=== PATIENT | male | born 1940 | race Caucasian/White ===

== ENCOUNTER → 2020-10-13 14:52 | Outpatient (CLI) | payer MEDICARE, BC, SELFPAY | PROVIDERS: PCP Family Medicine; Referring Provider Family Medicine; Visit Provider Family Medicine | DX: Z03.818 Encounter for observation for suspected exposure to other biological agents ruled out (principal) | CPT/HCPCS: U0003 ==

== ENCOUNTER → 2022-05-18 08:33 | Outpatient (CLI) | payer MEDICARE, BC, SELFPAY | PROVIDERS: PCP Family Medicine; Visit Provider Ophthalmology | DX: Z01.812 Encounter for preprocedural laboratory examination (principal); Z20.822 Contact with and (suspected) exposure to COVID-19 | CPT/HCPCS: C9803; U0003; U0005 ==

== ENCOUNTER 2022-05-21 08:41 | Day surgery (SDC) | payer MEDICARE, BC, SELFPAY ==
[2022-05-16 12:16] VITALS: BMI 25.4
[2022-05-21 09:26] VITALS: BP 141/53; PULSE 61; RESP 16; TEMP 36.2; O2SAT 97
[2022-05-21 10:00] VITALS: BP 142/74; PULSE 109; RESP 18; TEMP 36.2; O2SAT 98
[2022-05-21 10:09] VITALS: BP 142/79; PULSE 109; RESP 18; O2SAT 98
== END 2022-05-21 10:09 | disposition home or self-care (01) ==
LOC: OUTP 08:43
PROVIDERS: PCP Family Medicine; Visit Provider Ophthalmology
PROC: (CPT 66821; principal; 2022-05-21 09:30)
DX: H26.40 Unspecified secondary cataract (principal); Z48.810 Encounter for surgical aftercare following surgery on the sense organs
CPT/HCPCS: 66821

== ENCOUNTER 2024-11-21 09:52 | Observation (INO) | payer MEDICARE, BC, SELFPAY ==
[2024-11-21] VITALS (21 sets, daily range): BP systolic 133–172; BP diastolic 58–78; PULSE 61–81; RESP 10–20; TEMP 36.4–36.8; O2SAT 94–99; BMI 25.7
--- NOTE | 2024-11-21 09:55 | ECG_ITS ---
APPROVED REPORT Exam: Resting ECG HR:75 bpm ECG Measurements Heart Rate 75 AXES NE 199 P 58 QRSd 89 QRS 55 QT 337 T 58 QTc 366 Conclusion SINUS RHYTHM NORMAL ECG Electronically signed by : LIZ DE LA GARZA, 11/27/2024 07:47:07
--- NOTE | 2024-11-21 10:02 | ED_ITS ---
Discharge Plan Disposition Patient Disposition: Admitted Chief Complaint: Chest Pain Prescriptions Prescriptions: No Action ascorbic acid (vitamin C) 1,000 MG tablet 1,000 mg PO DAILY aspirin 325 MG tablet 325 mg PO DAILY simvastatin 10 MG tablet 10 mg PO DAILY amlodipine 5 MG tablet 5 mg PO BID tamsulosin 0.4 MG capsule 0.4 mg PO DAILY lisinopril 10 MG tablet 10 mg PO BID levothyroxine 112 MCG tablet 112 mcg PO DAILY sinvyfkl-hlc-WY-lycopen-lutein 1 EACH tablet 1 each PO DAILY omega-3 fatty acids 300 MG capsule 1,000 mg PO DAILY cyanocobalamin (vitamin B-12) 2,500 MCG tablet 2,500 mcg PO DAILY Clinical Impressions Clinical Impression: Acute cholecystitis Print Language Print Language: Setswana Discharge ED Provider: Chris Adair HPI General Chief Complaint: Chest Pain Stated Complaint: Chest pain Time Seen by Provider: 11/21/24 10:02 History of Present Illness HPI narrative: Please note that above description of symptoms, in this electronic medical record under categorization of recalled from ER triage doctor by RN are reflective of an initial nursing assessment, however, is not reflective of my full history and physical exam that was personally taken and clarified. Consequentially, this preceding description of symptoms, which may include the patient's categorized chief complaint in the EMR, do not reflect my personal clinical impression, and the ultimate description of history of present illness and patient stated complaints should be deferred to this section of the note. Unless stated otherwise or congruent with this section of the note, additional signs, symptoms, or incongruence should be interpreted as inaccurate with my clinical impression. Related Data Home Medications ?Medication ?Instructions ?Recorded ?Confirmed amlodipine 5 mg tablet 5 mg PO BID BP 09/07/19 05/21/22 ascorbic acid (vitamin C) 1,000 mg 1,000 mg PO DAILY Supplement 09/07/19 05/21/22 tablet aspirin 325 mg tablet 325 mg PO DAILY Blood thinner 09/07/19 05/21/22 cyanocobalamin (vitamin B-12) 2,500 mcg PO DAILY Supplement 09/07/19 05/21/22 2,500 mcg tablet levothyroxine 112 mcg tablet 112 mcg PO DAILY THYROID 09/07/19 05/21/22 lisinopril 10 mg tablet 10 mg PO BID BP 09/07/19 05/21/22 gerhszhk-uee-crhdo acid 0.4 1 each PO DAILY Supplement 09/07/19 05/21/22 mg-lycopene 300 mcg-lutein 250 mcg tablet omega-3 fatty acids 300 mg capsule 1,000 mg PO DAILY Supplement 09/07/19 05/21/22 simvastatin 10 mg tablet 10 mg PO DAILY Cholesterol 09/07/19 05/21/22 tamsulosin 0.4 mg capsule 0.4 mg PO DAILY PROSTATE 09/07/19 05/21/22 Allergies Allergy/AdvReac Type Severity Reaction Status Date / Time No Known Allergies Allergy Verified 05/21/22 09:23 [facility] Disclaimer: The information contained in this section may have been updated after the patient was seen, as this information can be updated by other users. Social History Smoking Status: Current every day smoker tobacco type: pipe second hand exposure: Yes alcohol intake: current alcohol intake frequency: a few times a week current occupational status: employed Travel in the last 8 weeks: None household members: spouse housing: house current occupation: [employer] current occupational exposures/hazards: No caffeine: Yes Have you lived/traveled outside [place] in past 30 days?: No Contact w/someone who lives/traveled outside [place] past 30 days?: No Exposure to someone with infectious disease in past 14 days?: No Do you have a fever (greater than 100.4 F or 38 C)?: No Have you tested positive for COVID-19: No Exposed to someone with COVID-19 in past 14 days?: No Do you have a sore throat?: No Do you have a cough?: No Do you have any weakness?: No Do you have any diarrhea?: No Are you experiencing any unusual bleeding?: No Do you have any muscle aches/pain?: No Do you have any abdominal pain?: No Are you experiencing loss of taste or smell?: No Other Medical History Have you received the Flu Vaccine for this season: No Have you received the Pneumonia Vaccine: Yes ROS Obtained: Yes All systems reviewed & no additional complaints except as documented Physical Exam General General appearance: alert Neck Neck exam: Present trachea midline Chest Chest inspection: Present normal inspection and symmetric chest wall rise Respiratory Respiratory exam: Present normal lung sounds bilaterally; Absent respiratory distress, wheezes, stridor, accessory muscle use or prolonged expiratory phase Cardiovascular Cardiovascular exam: Present regular rate, normal rhythm and other (Pulses equal and symmetric in upper and lower extremities) Extremities Exam Extremities exam: Absent edema Neurological Exam Neurological exam: Present alert, oriented X3 and CN II-XII intact Skin Skin exam: Present warm and dry; Absent cyanosis, diaphoresis or pallor HEART Score HEART Score HEART Score assessment performed?: Yes HEART Score: 5 Procedures Limited Ultrasound Indication:: Limited RUQ ultrasound Indication: Abdominal pain, colicky, right upper quadrant Identified structures: -Gallbladder -Gallbladder wall -Common bile duct -Liver Findings: Sonographic Villarreal sign: Present Gallstones: Present Sludge: Absent Pericholecystic fluid: Scant Maximal GB wall thickness (mm) (normal is </= 3mm): Normal Common bile duct width (mm) (normal is </= 6mm): Normal Gallbladder width (cm) (normal is < 4cm): Normal Gallbladder length (cm) (normal is < 10cm): Abnormal, nearly 11 cm Impression: Dilated gallbladder, stones, right upper quadrant tenderness with scant pericholecystic fluid Images were saved to permanent archive The study was technically adequate CPT 36156-97 This study was performed by me, and I personally interpreted all images/videos. Based on my clinical judgement, these images were adequate and did not necessitate further imaging. Critical Care Critical Care Time Critical Care Time: No Medical Decision Making Medical Records Medical records reviewed: Yes I reviewed the patient's medical records. Macario Inquiry Pt receiving controlled substance: No Macario was queried for this patient: No Vital Signs Vital Signs: 11/21/24 09:52 11/21/24 10:06 11/21/24 10:15 Temperature 97.6 F Temperature Source Oral Pulse Rate 81 66 Pulse Rate [Left Radial] 81 Respiratory Rate 20 15 Blood Pressure 145/71 H Blood Pressure [Right Arm] 172/73 H Blood Pressure Mean [Right Arm] 106 02 Sat by Pulse Oximetry 98 97 Oxygen Delivery Method Room Air Room Air 11/21/24 10:30 11/21/24 10:45 11/21/24 10:46 Temperature Temperature Source Pulse Rate 72 Pulse Rate [Left Radial] Respiratory Rate 17 20 17 Blood Pressure 143/63 H 150/71 H Blood Pressure [Right Arm] Blood Pressure Mean [Right Arm] 02 Sat by Pulse Oximetry 96 Oxygen Delivery Method Room Air 11/21/24 11:00 11/21/24 11:15 11/21/24 11:30 Temperature Temperature Source Pulse Rate 67 66 61 Pulse Rate [Left Radial] Respiratory Rate 10 L 16 18 Blood Pressure 149/78 H 147/67 H 148/70 H Blood Pressure [Right Arm] Blood Pressure Mean [Right Arm] 02 Sat by Pulse Oximetry 99 97 97 Oxygen Delivery Method Room Air Room Air Room Air 11/21/24 11:45 11/21/24 12:15 11/21/24 12:30 Temperature Temperature Source Pulse Rate 71 70 71 Pulse Rate [Left Radial] Respiratory Rate 14 19 17 Blood Pressure 150/71 H 139/70 141/69 H Blood Pressure [Right Arm] Blood Pressure Mean [Right Arm] 02 Sat by Pulse Oximetry 98 95 94 L Oxygen Delivery Method Room Air 11/21/24 12:45 11/21/24 13:00 Temperature Temperature Source Pulse Rate 74 70 Pulse Rate [Left Radial] Respiratory Rate 19 18 Blood Pressure 141/67 H 143/66 H Blood Pressure [Right Arm] Blood Pressure Mean [Right Arm] 02 Sat by Pulse Oximetry 96 94 L Oxygen Delivery Method Room Air Lab Data Labs: Lab Results 11/21/24 10:05: WBC 11.9 H, RBC 4.10 L, Hgb 13.1 L, Hct 38.8 L, MCV 94.6 H, MCH 32.0 H, MCHC 33.8, RDW 13.5, Plt Count 294, MPV 9.1, Neut % (Auto) 72.1, Lymph % (Auto) 16.6, [place] % (Auto) 9.4 H, Eos % (Auto) 0.7, Baso % (Auto) 0.7, Neut # (Auto) 8.6 H, Lymph # (Auto) 2.0, [place] # (Auto) 1.1 H, Eos # (Auto) 0.1, Baso # (Auto) 0.1, PT 10.2, INR 0.92, APTT 27.2, Sodium 130 L, Potassium 5.2 H, C hloride 97 L, Carbon Dioxide 25, Anion Gap 13.2, BUN 19, Creatinine 1.10, Estimated Creat Clear 61, Estimated GFR 64, Est GFR ( Amer) 78, Glucose 99, Calcium 9.3, Total Bilirubin 0.9, AST 59, ALT 33, Alkaline Phosphatase 68, Troponin I < 0.01, NT-Pro-B Natriuret Pep 141, Total Protein 7.4, Albumin 4.2, Globulin 3.2, Albumin/Globulin Ratio 1.3, Lipase 197 11/21/24 10:05 11/21/24 10:05 Response Orders (Tests/Meds): ED MEDICATIONS Discontinued Medications Generic Name Dose Route Start Last Admin Trade Name Freq PRN Reason Stop Dose Admin Belladonna Alkaloids 60 ml 11/21/24 10:44 11/21/24 10:56 Belladonna Alkaloids 60 Ml Ml PO 11/21/24 10:45 60 ml ONCE ONE Administration Lactated Ringer's 1,000 mls @ 999 mls/hr 11/21/24 12:04 11/21/24 12:07 Lactated Ringer's 1000 Ml Bag IV 11/21/24 13:04 999 mls/hr .Q1H1M ONE Administration Iopamidol 75 ml 11/21/24 12:01 11/21/24 12:02 Iopamidol-370 (76%);100ml Bottle IV 11/21/24 12:02 75 ml ONCE ONE Administration Ketorolac Tromethamine 15 mg 11/21/24 12:04 11/21/24 12:07 Ketorolac 30mg/Ml Vial IV 11/21/24 12:05 15 mg ONCE ONE Administration Ondansetron HCl 4 mg 11/21/24 10:54 11/21/24 10:56 Ondansetron 4mg/2ml Vial IV 11/21/24 10:55 4 mg ONCE ONE Administration Sodium Chloride 10 ml 11/21/24 12:01 11/21/24 12:02 Sodium Chloride 0.9% 10ml Syr (Rad Only) IV 11/21/24 12:02 10 ml ONCE ONE Administration ORDERS Category Date Time Status CT abdomen pelvis w con Stat Cat Scan 11/21/24 11:50 Completed POCUS Point of Care (ER Only) Stat Exams 11/21/24 10:08 Completed XR chest portable Stat Exams 11/21/24 10:08 Completed Complete Blood Count Auto Diff Stat Lab 11/21/24 10:05 Completed Comprehensive Metabolic Panel Stat Lab 11/21/24 10:05 Completed Lipase Stat Lab 11/21/24 10:05 Completed NT Pro Brain Natriuretic Pep. 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 Patient states that it started this morning around 4 AM. Took 2 aspirin. Also took 2 Pepcid, neither of these things work. Pain is epigastric, does not radiate, mild to moderate in intensity. Has never had abdominal surgeries and no cardiac history otherwise. No vomiting or diarrhea, no constipation, still passing gas, last bowel movement nose normal for him and yesterday. History was obtained via conversation with patient. On arrival, patient hemodynamically stable, alert, oriented x4, appropriate, GCS 15, moving all extremities spontaneously, pupils equal and reactive to light. Full physical exam performed and significant for well-appearing male no acute distress. He does have epigastric and right upper quadrant tenderness. No evidence of rebound, rigidity, guarding. No overlying skin changes. Cardiac exam with no murmurs gallops or rubs. Lungs are clear. He does have 2+ lower extremity pitting edema with normal pulses. Differential includes pancreatitis, cholecystitis, ACS, MS, pneumonia, gastritis, peptic ulcer disease, among others. Patient was given GI cocktail for symptomatic management and correction of underlying abnormalities. Patient placed on continuous cardiac monitoring and continuous pulse ox with initial blood pressure 172/73, heart rate 81, saturation 98% on room air. Independent interpretation of EKG shows sinus rhythm 75 bpm with ME interval 199, QRS 89, QTc 366. No ST or T wave changes consistent with acute ischemia. Normal axis. Workup independently interpreted and significant for leukocytosis 12,000 with neutrophilia and monocyte elevation. Coags negative. Patient mildly hyponatremic 130, potassium elevated at 5.2. Troponin negative, BNP negative. Lipase negative. Bedside hgjam-gw-glcd ultrasound was performed. Patient has dilated gallbladder, borderline elevated measurements including gallbladder wall 2.7, gallbladder width 3.7 cm, gallbladder length over 10 cm. Numerous gallstones. Common bile duct within normal limits. On independent interpretation of chest x-ray, no acute intrathoracic abnormalities. On independent interpretation of CT imaging, no acute intra-abdominal abnormalities. See radiology read for full review of final results. On reevaluation, patient states that GI cocktail did almost nothing for him. Toradol was given. General surgery was contacted and case was discussed at length. Because patient has stones, upper limit of normal on all measurements on ultrasound, positive Villarreal sign with scant pericholecystic fluid appropriate for inpatient admission.. Patient was administered 4.5 g Zosyn. On room, states that the Toradol nearly completely took care of his pain. Makes this even more likely to be inflammatory pain given negative workup otherwise.Given patient presentation, workup, history, this most likely represents symptomatic cholelithiasis versus early cholecystitis. Because patient high risk for clinical decompensation, deemed appropriate for inpatient admission. Results were relayed to patient who voiced understanding and patient was agreeable to inpatient admission and management. Patient was admitted to the hospital for further definitive management. Financial Sales Professional disclaimer Much of this encounter note is an electronic sales agent casualty insurance spoken language to printed text. Electronic sales agent casualty insurance of the spoken language may permit errors. Although I have reviewed the note, some errors may still exist.
--- NOTE | 2024-11-21 10:08 | XR_ITS ---
PROCEDURE INFORMATION: Exam: XR Chest Exam date and time: 11/21/2024 10:15 AM Age: 84 years old Clinical indication: Other: Epigastric pain TECHNIQUE: Imaging protocol: Radiologic exam of the chest. Views: 1 view. COMPARISON: No relevant prior studies available. FINDINGS: Lungs: Lungs are well aerated without a focal area of consolidation. Pleural spaces: Unremarkable. No pleural effusion. No pneumothorax. Heart/Mediastinum: The cardiac silhouette appears enlarged, some of which is magnification related to the AP projection. Bones/joints: Unremarkable. IMPRESSION: Lungs are well aerated without a focal area of consolidation.
[2024-11-21 10:17] LABS: Basophils # 0.1 K/mm3 (0-0.2); Basophils % 0.7 % (0.1-2.0); Eosinophils # 0.1 K/mm3 (0.0-0.4); Eosinophils % 0.7 % (0.1-12.0); Hematocrit 38.8 % (42.0-52.0); Hemoglobin 13.1 g/dL (14.1-18.0); Lymphocytes % 16.6 % (10-50); Mean Corpuscular HGB Conc 33.8 g/dL (31.8-35.4); Mean Corpuscular Volume 94.6 fl (80-94); Mean Platelet Volume 9.1 fl (7.4-10.4); Monocytes # 1.1 K/mm3 (0.1-1.0); Monocytes % 9.4 % (1.7-9.3); Neutrophils # 8.6 K/mm3 (1.8-7.8); Neutrophils % 72.1 % (37.0-80.0); Platelet Count 294 K/mm3 (142-424); Red Cell Distribution Width 13.5 % (11.5-17.5); White Blood Count 11.9 K/mm3 (4.8-10.8)
[2024-11-21 10:22] LABS: Albumin Level 4.2 g/dl (3.5-5.0); Chloride 97 mmol/L (98-107); Potassium 5.2 mmoL/L (3.5-5.1); Sodium 130 mmol/L (136-145)
[2024-11-21 10:25] LABS: Alanine Aminotransferase 33 U/L (12-78); Albumin/Globulin Ratio 1.3 (1.1-1.8); Alkaline Phosphatase 68 U/L (38-126); Anion Gap 13.2 mEq/L (5-15); Aspartate Amino Transferase 59 U/L (17-59); Bilirubin,Total 0.9 mg/dl (0.2-1.3); Blood Urea Nitrogen 19 mg/dl (9-20); Calcium 9.3 mg/dl (8.4-10.2); Carbon Dioxide 25 mmol/L (22.0-30.0); Creatinine Clearance Estimated 61 mL/min (50-200); Estimated Glomerular Filt Rate 64 ml/min (>60); GFR (African American) 78 ML/MIN (>60); Globulin 3.2 g/dL (1.3-3.2); Glucose 99 mg/dl (74-100); Lipase 197 U/L (23-300); Total Protein,Serum 7.4 g/dl (6.3-8.2)
[2024-11-21 10:34] LABS: Activated Partial Thrombo Time 27.2 seconds (22.5-28.5); INR 0.92 (0.9-1.1); NT Pro Brain Natriuretic Pep. 141 pg/mL (0-450); Prothrombin Time 10.2 seconds (9.2-12.1)
[2024-11-21 10:37] LABS: Troponin I < 0.01 ng/ml (0.00-0.034)
[2024-11-21] MEDS: BELLADONNA ALKALOIDS 60 ML ML PO (10:56)
[2024-11-21] MEDS: ONDANSETRON 4MG/2ML VIAL 4 MG IV (10:56)
--- NOTE | 2024-11-21 11:45 | PC.NURSE ---
PT PROVIDED URINAL
--- NOTE | 2024-11-21 11:50 | CT_ITS ---
PROCEDURE INFORMATION: Exam: CT Abdomen And Pelvis With Contrast Exam date and time: 11/21/2024 12:01 PM Age: 84 years old Clinical indication: Abdominal pain; Other: Ruq; Additional info: Ruq pain. Equivocal US TECHNIQUE: Imaging protocol: Computed tomography of the abdomen and pelvis with contrast. Radiation optimization: All CT scans at this facility use at least one of these dose optimization techniques: automated exposure control; mA and/or kV adjustment per patient size (includes targeted exams where dose is matched to clinical indication); or iterative reconstruction. Contrast material: ISOVUE; Contrast volume: 75 ml; Contrast route: IV; COMPARISON: CR XR CHEST PORTABLE 11/21/2024 10:15 AM FINDINGS: Lungs: visualized portions of the lung bases normal. Liver: Normal. No mass. Gallbladder and biliary ducts: Numerous gallstones. Prominence of the common bile duct. Question mild intrahepatic biliary dilatation. No visualized filling defect/no evidence of choledocholithiasis. Correlate with LFTs. Pancreas: Normal. No ductal dilation. Spleen: Splenic granulomas are present. Adrenal glands: Normal. No mass. Kidneys and ureters: Renal cysts bilaterally largest on the right of approximately 6 cm in on the left of approximately 3 cm. Stomach and bowel: Large amount of stool throughout the large bowel. The terminal ileum and cecum appear grossly normal. Appendix: Appendix normal. Intraperitoneal space: No acute intra-abdominal process. No inflammatory process. No obstruction. No free fluid within the pelvis or within the dependent portions of the peritoneum. Vasculature: Calcification of the abdominal aorta. Flow within the superior mesenteric artery, celiac trunk and inferior mesenteric arteries. Lymph nodes: Unremarkable. No enlarged lymph nodes. Urinary bladder: Distended bladder. Reproductive: Prostatic enlargement. Correlate regarding hyperplasia/hypertrophy versus neoplasia. Bones/joints: Mild degenerative disc disease. Soft tissues: Periumbilical ventral hernia. Small. IMPRESSION: 1. No acute intra-abdominal process. No inflammatory process. No obstruction. 2. No free fluid within the pelvis or within the dependent portions of the peritoneum. 3. Numerous gallstones. 4. Prostatic enlargement. Correlate regarding hyperplasia/hypertrophy versus neoplasia. 5. Prominence of the common bile duct. Question mild intrahepatic biliary dilatation. No visualized filling defect/no evidence of choledocholithiasis. Correlate with LFTs. 6. Large amount of stool throughout the large bowel. 7. Appendix normal. COMMENTS: Consistent with the [place] [employer]'s Incidental Findings Committee white paper (J Am Nasim Radiol 2018): Any incidental renal lesion less than 1 cm or classified as too small to characterize, or any incidental cystic renal lesion characterized as simple-appearing, is likely benign. No follow-up imaging is recommended for these lesions per consensus recommendations based on imaging criteria.
--- NOTE | 2024-11-21 11:55 | PC.NURSE ---
PT TO CT
[2024-11-21] MEDS: IOPAMIDOL-370 (76%);100ML BOTTLE 75 ML IV (12:02)
[2024-11-21] MEDS: SODIUM CHLORIDE 0.9% 10ML SYR (RAD ONLY) 10 ML IV (12:02)
--- NOTE | 2024-11-21 12:06 | PC.NURSE ---
PT RETURNED FROM CT
[2024-11-21] MEDS: LACTATED RINGERS 1000ML 1,000 ML 999 ML IV (12:07)
[2024-11-21] MEDS: KETOROLAC 30MG/ML VIAL 15 MG IV (12:07)
--- NOTE | 2024-11-21 13:00 | PC.NURSE ---
DR DE LA GARZA AT BEDSIDE TO UPDATE PT AND FAMILY
--- NOTE | 2024-11-21 13:13 | PC.NURSE ---
DR ED LA GARZA SPEAKING WITH DR PORTER
[2024-11-21] MEDS: PIPERACILLIN/TAZO 4.5 GM in 0.9 % SODIUM CHLORIDE 100 ML IV (13:30)
--- NOTE | 2024-11-21 13:31 | PC.NURSE ---
FISH CULTURIST NOTIFIED OF ADMISSION
--- NOTE | 2024-11-21 13:42 | EXP.HP ---
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 Presents to the ER with complaint of epigastric pain. States it started early this morning, he took 2 aspirin and 2 Pepcid with no improvement in his discomfort. Called his son who encouraged him to go to the ER for evaluation. States the pain does not radiate. Denies nausea or vomiting. Mild to moderate intensity. Has never had pain like this before he states. No vomiting or diarrhea. Denies constipation, had a bowel movement last night. Alert and oriented in the ER. Hemodynamically stable. On workup in the ER, found to have gallstones. Does have moderate stool burden in his colon on CT abdomen. Liver enzymes normal. Given concern for choledocholithiasis, surgery was contacted. Recommended admission for further evaluation and possible surgery. Medicine consulted for admission. On evaluation, patient denies belkis chest pain. With right upper quadrant palpation, this reproduces his epigastric pain. States that the pain was present when he woke up. Not made worse by eating sausage for breakfast. States he is more or less pain-free now unless his belly is pressed on. [facility] Disclaimer: The information contained in this section may have been updated after the patient was seen, as this information can be updated by other users. Medical History (Updated 11/21/24 @ 18:56 by Norman Flores MD) Cholecystitis CVA (cerebral vascular accident) Hyperlipidemia Hypertension Family History Other Hypertension Stroke Social History Smoking Status: Current every day smoker tobacco type: pipe second hand exposure: Yes alcohol intake: current alcohol intake frequency: a few times a week current occupational status: employed Travel in the last 8 weeks: None household members: spouse housing: house current occupation: [employer] current occupational exposures/hazards: No caffeine: Yes Have you lived/traveled outside US in past 30 days?: No Contact w/someone who lives/traveled outside US past 30 days?: No Exposure to someone with infectious disease in past 14 days?: No Do you have a fever (greater than 100.4 F or 38 C)?: No Have you tested positive for COVID-19: No Exposed to someone with COVID-19 in past 14 days?: No Do you have a sore throat?: No Do you have a cough?: No Do you have any weakness?: No Do you have any diarrhea?: No Are you experiencing any unusual bleeding?: No Do you have any muscle aches/pain?: No Do you have any abdominal pain?: No Are you experiencing loss of taste or smell?: No Other Medical History Have you received the Flu Vaccine for this season: No Have you received the Pneumonia Vaccine: Yes Review of Systems Review of Systems Review of systems (narrative): 14 point review of systems performed, pertinent positives and negatives as per [facility] Meds Home Medications and Allergies Home Medications ?Medication ?Instructions ?Recorded ?Confirmed ?Type amlodipine 5 mg tablet 5 mg PO BID BP 09/07/19 11/21/24 History ascorbic acid (vitamin C) 1,000 mg 1,000 mg PO DAILY Supplement 09/07/19 11/21/24 History tablet aspirin 325 mg tablet 325 mg PO DAILY Blood thinner 09/07/19 11/21/24 History cyanocobalamin (vitamin B-12) 2,500 mcg PO DAILY Supplement 09/07/19 11/21/24 History 2,500 mcg tablet levothyroxine 112 mcg tablet 112 mcg PO DAILY THYROID 09/07/19 11/21/24 History lisinopril 10 mg tablet 10 mg PO BID BP 09/07/19 11/21/24 History szprwmby-bfq-deiyx acid 0.4 1 each PO DAILY Supplement 09/07/19 11/21/24 History mg-lycopene 300 mcg-lutein 250 mcg tablet omega-3 fatty acids 300 mg capsule 1,000 mg PO DAILY Supplement 09/07/19 11/21/24 History simvastatin 10 mg tablet 10 mg PO DAILY Cholesterol 09/07/19 11/21/24 History alfuzosin 10 mg tablet,extended 10 mg PO BID 11/21/24 11/21/24 History release 24 hr New Prescriptions to Start Prescriptions: Allergies Allergy/AdvReac Type Severity Reaction Status Date / Time No Known Allergies Allergy Verified 05/21/22 09:23 Exam Data for Last 24 hours Vital signs and Labs for Last 24 Hours: Temp Pulse Resp BP Pulse Ox O2 Del Method 97.6 F 70 18 143/66 H 94 L Room Air 11/21/24 09:52 11/21/24 13:00 11/21/24 13:00 11/21/24 13:00 11/21/24 13:00 11/21/24 13:00 Laboratory Results - last 24 hr 11/21/24 10:05: WBC 11.9 H, RBC 4.10 L, Hgb 13.1 L, Hct 38.8 L, MCV 94.6 H, MCH 32.0 H, MCHC 33.8, RDW 13.5, Plt Count 294, MPV 9.1, Neut % (Auto) 72.1, Lymph % (Auto) 16.6, [place] % (Auto) 9.4 H, Eos % (Auto) 0.7, Baso % (Auto) 0.7, Neut # (Auto) 8.6 H, Lymph # (Auto) 2.0, [place] # (Auto) 1.1 H, Eos # (Auto) 0.1, Baso # (Auto) 0.1, PT 10.2, INR 0.92, APTT 27.2, Sodium 130 L, Potassium 5.2 H, Chloride 97 L, Carbon Dioxide 25, Anion Gap 13.2, BUN 19, Creatinine 1.10, Estimated Creat Clear 61, Estimated GFR 64, Est GFR ( Amer) 78, Glucose 99, Calcium 9.3, Total Bilirubin 0.9, AST 59, ALT 33, Alkaline Phosphatase 68, Troponin I < 0.01, NT-Pro-B Natriuret Pep 141, Total Protein 7.4, Albumin 4.2, Globulin 3.2, Albumin/Globulin Ratio 1.3, Lipase 197 I & O for Last 24 hours: Intake & Output 11/18/24 11/19/24 11/20/24 11/21/24 23:59 23:59 23:59 23:59 Weight 83.461 kg Constitutional Constitutional: no acute distress, average body habitus and cooperative *Routine HEENT Exam Head: Present normocephalic Eye: Present EOMI and PERRL ENT: Present mucous membranes moist *Routine Neck Exam Neck: Present supple; Absent lymphadenopathy *Routine Respiratory Exam Respiratory: Present CTA bilaterally; Absent respiratory distress, rhonchi, stridor, wheezes or crackles *Routine Cardiovascular Exam Cardiovascular: Present RRR *Routine Abdominal Exam Abdominal: Present soft, normoactive bowel sounds and tenderness (Palpation of right upper quadrant produces epigastric discomfort. No rebound or guarding. No peritoneal signs) *Routine Rectal Exam Rectal:: deferred *Routine Genitalia Exam Genitalia:: deferred *Routine Extremities Exam Extremities: Absent cyanosis, clubbing or edema *Routine Skin Exam Skin: Present warm; Absent rash *Routine Neurological Exam Neurological: Present alert, oriented X3 and moving all extremities; Absent altered mental status Assessment and Plan *Assessment and plan (1) Acute cholecystitis: Status: Acute Category: Medical Code(s): K81.0 - Acute cholecystitis (2) Gallstones: Status: Acute Category: Medical Code(s): K80.20 - Calculus of gallbladder without cholecystitis without obstruction (3) Hypertension: Status: Chronic Category: Medical Code(s): I10 - Essential (primary) hypertension (4) Hyperlipidemia: Status: Chronic Category: Medical Code(s): E78.5 - Hyperlipidemia, unspecified (5) CVA (cerebral vascular accident): Status: Chronic Category: Medical Code(s): I63.9 - Cerebral infarction, unspecified Plan 84-year-old male who presents with epigastric pain. Differential includes GERD, constipation, gallbladder disease. Imaging concerning for gallstones. Given presence of right upper quadrant pain/discomfort reproducing his epigastric pain when pressed on abdomen, had discussion with the ER about admission. Request admission for surgical eval and further management. I agreed to admit for further treatment. Surgery evaluated. Patient appears hemodynamically stable. Will monitor overnight for recurrence of pain. Workup in the morning. Possible surgery tomorrow. Problems addressed as follows: Choledocholithiasis Acute cholecystitis -CT per my review shows numerous calcified stones in the neck of the gallbladder. Mild positive Villarreal sign on exam - White count 11.9. Liver enzymes normal with bilirubin 0.9, AST 59, ALT 33, alk phos 68. Repeat CBC, CMP, magnesium ordered for the morning. - Patient does have some mild hyponatremia at 130 with potassium 5.2. Kidney function normal with BUN 19, creatinine 1.1. -Case discussed with surgery. Recommend n.p.o. at midnight and right upper quadrant ultrasound in the morning. Will consider surgery tomorrow versus in the near future as an outpatient. - patient is active, has no kidney disease, no diabetes, no chest pain. Would recommend cardiology eval just given patient's age and unknown cardiac history. Will obtain echo in the morning. Appears to be average risk for intermediate risk procedure of cholecystectomy. -Will hold on further antibiotics at this time. Received a dose of Zosyn in the ER. Hypothyroid: Continue levothyroxine 112 mcg daily Hypertension: Continue home alfuzosin 10 mg twice daily, amlodipine 5 mg twice daily, lisinopril 10 mg twice daily Will hold statin for lipids at this time. Patient appears to be constipated on exam and CT of abdomen per my review. Will initiate aggressive bowel regimen with MiraLAX daily, docusate senna 1 capsule twice daily. GERD: Continue pantoprazole 40 mg nightly Full code Holding anticoagulation in anticipation of surgery N.p.o. at midnight
--- NOTE | 2024-11-21 14:18 | P.CONS_ITS ---
History of Present Illness *Admission Date: 11/21/24 *Reason for visit:: Gallstones *History of present illness: Patient is an 84-year-old male from [place] with history of hypertension, hyperlipidemia, prior CVA with no residual deficits, known history of gallstones. He had acute onset of moderately intense epigastric pain early this morning on 11/21/2024 approximately 4 AM. He had taken 2 aspirin and 2 Pepcid without relief. He presented to the emergency department. On examination he was found to have tenderness right upper quadrant and epigastrium with Villarreal sign. He did undergo bedside [id number]-[id number]-lnck ultrasound which revealed borderline gallbladder wall thickening and distention with multiple gallstones and normal common bile duct. CT scan was performed which revealed numerous gallstones with prominence of the common bile duct and questionable mild intrahepatic biliary ductal dilatation but no definite evidence of choledocholithiasis. He had a large amount of stool throughout the colon. Laboratory assessment revealed white blood cell count 11,900. Renal function normal. LFTs and pancreatic enzymes normal. Given the degree of his tenderness with mild leukocytosis it was felt that patient warranted inpatient admission. After admission patient has had some improvement in his symptoms. [facility] Disclaimer: The information contained in this section may have been updated after the patient was seen, as this information can be updated by other users. Social History Smoking Status: Current every day smoker tobacco type: pipe second hand exposure: Yes alcohol intake: current alcohol intake frequency: a few times a week current occupational status: employed Travel in the last 8 weeks: None household members: spouse housing: house current occupation: paper handler current occupational exposures/hazards: No caffeine: Yes Have you lived/traveled outside US in past 30 days?: No Contact w/someone who lives/traveled outside US past 30 days?: No Exposure to someone with infectious disease in past 14 days?: No Do you have a fever (greater than 100.4 F or 38 C)?: No Have you tested positive for COVID-19: No Exposed to someone with COVID-19 in past 14 days?: No Do you have a sore throat?: No Do you have a cough?: No Do you have any weakness?: No Do you have any diarrhea?: No Are you experiencing any unusual bleeding?: No Do you have any muscle aches/pain?: No Do you have any abdominal pain?: No Are you experiencing loss of taste or smell?: No Meds Home Medications and Allergies Home Medications ?Medication ?Instructions ?Recorded ?Confirmed ?Type amlodipine 5 mg tablet 5 mg PO BID BP 09/07/19 05/21/22 History ascorbic acid (vitamin C) 1,000 mg 1,000 mg PO DAILY Supplement 09/07/19 05/21/22 History tablet aspirin 325 mg tablet 325 mg PO DAILY Blood thinner 09/07/19 05/21/22 History cyanocobalamin (vitamin B-12) 2,500 mcg PO DAILY Supplement 09/07/19 05/21/22 History 2,500 mcg tablet levothyroxine 112 mcg tablet 112 mcg PO DAILY THYROID 09/07/19 05/21/22 History lisinopril 10 mg tablet 10 mg PO BID BP 09/07/19 05/21/22 History ranykknc-ijw-xaysd acid 0.4 1 each PO DAILY Supplement 09/07/19 05/21/22 History mg-lycopene 300 mcg-lutein 250 mcg tablet omega-3 fatty acids 300 mg capsule 1,000 mg PO DAILY Supplement 09/07/19 05/21/22 History simvastatin 10 mg tablet 10 mg PO DAILY Cholesterol 09/07/19 05/21/22 History tamsulosin 0.4 mg capsule 0.4 mg PO DAILY PROSTATE 09/07/19 05/21/22 History New Prescriptions to Start Prescriptions: Allergies Allergy/AdvReac Type Severity Reaction Status Date / Time No Known Allergies Allergy Verified 05/21/22 09:23 Exam (Inpt) Vital signs and Labs for Last 24 Hours: Temp Pulse Resp BP Pulse Ox O2 Del Method 98.2 F 68 17 133/58 L 95 Room Air 11/21/24 13:43 11/21/24 13:45 11/21/24 13:45 11/21/24 13:45 11/21/24 13:45 11/21/24 14:13 Laboratory Results - last 24 hr 11/21/24 10:05: WBC 11.9 H, RBC 4.10 L, Hgb 13.1 L, Hct 38.8 L, MCV 94.6 H, MCH 32.0 H, MCHC 33.8, RDW 13.5, Plt Count 294, MPV 9.1, Neut % (Auto) 72.1, Lymph % (Auto) 16.6, [place] % (Auto) 9.4 H, Eos % (Auto) 0.7, Baso % (Auto) 0.7, Neut # (Auto) 8.6 H, Lymph # (Auto) 2.0, [place] # (Auto) 1.1 H, Eos # (Auto) 0.1, Baso # (Auto) 0.1, PT 10.2, INR 0.92, APTT 27.2, Sodium 130 L, Potassium 5.2 H, C hloride 97 L, Carbon Dioxide 25, Anion Gap 13.2, BUN 19, Creatinine 1.10, Estimated Creat Clear 61, Estimated GFR 64, Est GFR ( Amer) 78, Glucose 99, Calcium 9.3, Total Bilirubin 0.9, AST 59, ALT 33, Alkaline Phosphatase 68, Troponin I < 0.01, NT-Pro-B Natriuret Pep 141, Total Protein 7.4, Albumin 4.2, Globulin 3.2, Albumin/Globulin Ratio 1.3, Lipase 197 I & O for Labs for Last 24 Hours: Intake & Output 11/19/24 11/20/24 11/21/24 11/22/24 11:59 11:59 11:59 11:59 Weight 184 lb Constitutional: no acute distress Respiratory: Present CTA bilaterally; Absent accessory muscle use Cardiac: Present Reg Rate and Rhythm GI: Present soft Comments:: Mild tenderness in the epigastrium and right upper quadrant. Results Labs 11/21/24 10:05 11/21/24 10:05 Labs: Laboratory Results - last 24 hr 11/21/24 10:05: WBC 11.9 H, RBC 4.10 L, Hgb 13.1 L, Hct 38.8 L, MCV 94.6 H, MCH 32.0 H, MCHC 33.8, RDW 13.5, Plt Count 294, MPV 9.1, Neut % (Auto) 72.1, Lymph % (Auto) 16.6, [place] % (Auto) 9.4 H, Eos % (Auto) 0.7, Baso % (Auto) 0.7, Neut # (Auto) 8.6 H, Lymph # (Auto) 2.0, [place] # (Auto) 1.1 H, Eos # (Auto) 0.1, Baso # (Auto) 0.1, PT 10.2, INR 0.92, APTT 27.2, Sodium 130 L, Potassium 5.2 H, C hloride 97 L, Carbon Dioxide 25, Anion Gap 13.2, BUN 19, Creatinine 1.10, Estimated Creat Clear 61, Estimated GFR 64, Est GFR ( Amer) 78, Glucose 99, Calcium 9.3, Total Bilirubin 0.9, AST 59, ALT 33, Alkaline Phosphatase 68, Troponin I < 0.01, NT-Pro-B Natriuret Pep 141, Total Protein 7.4, Albumin 4.2, Globulin 3.2, Albumin/Globulin Ratio 1.3, Lipase 197 Assessment and Plan *Assessment and plan (1) Acute cholecystitis: Status: Acute Category: Medical Code(s): K81.0 - Acute cholecystitis Plan I had a thorough discussion with the patient and family. He at least had significant biliary colic with findings consistent with clinical acute cholecystitis upon presentation. Symptoms have subsequently improved. However, at this time I would plan for inpatient management with IV antibiotics. Make arrangements for planned ultrasound and echocardiogram and possible cardiac risk assessment tomorrow. Pending additional testing and patient's clinical scenario either consider proceeding with cholecystectomy or early outpatient cholecystectomy.
[2024-11-21] MEDS: POLYETHYLENE GLYCOL 3350 17 GM PACKET PO (15:00)
[2024-11-21] MEDS: LISINOPRIL 10MG TABLET 10 MG PO (21:35)
[2024-11-21] MEDS: AMLODIPINE 5MG TABLET 5 MG PO (21:35)
[2024-11-21] MEDS: PANTOPRAZOLE 40MG TABLET 40 MG PO (21:35)
[2024-11-21] MEDS: SENNOSIDES 8.6MG/DOCUSATE 50MG TABLET 1 TAB PO (21:38)
[2024-11-22] VITALS (18 sets, daily range): BP systolic 124–150; BP diastolic 54–81; PULSE 66–96; RESP 16–18; TEMP 36.2–43; O2SAT 90–98; BMI 25.7
[2024-11-22] MEDS: KETOROLAC 30MG/ML VIAL 30 MG IV (02:52)
--- NOTE | 2024-11-22 05:07 | PC.NURSE ---
Pt. was admitted for cholecystitis. Pt. is alert and orientated x 4. Pt. on room air. Pt. states he was having some epigastric and RUQ pain but the pain was gone and he felt. fine. around 0300 Pt. c/o heart burn rated 4/10. Pt. medicated with Toradol and the pain resolved. Pt. is up, ambulatory and independent. Pt. was NPO after midnight for possible OR today. VSS, Personal items and call mo in reach.
--- NOTE | 2024-11-22 06:00 | CA_ITS ---
APPROVED REPORT EXAM: Comprehensive 2D, Doppler, and color-flow Echocardiogram Outsole Rounder: Nelsy Thao RDCS Ht: 5 ft 11 in Wt: 184lbs BSA: 2.04 BP: 143/66 mmHg Indications: CHF,CHOLECYSTITIS,HTN,HLP M-Mode Dimensions RVDd 2.37 cm (0.9-2.6) LA Diam 3.47 cm (1.9-4.0) LVDd 5.51 cm (3.5-5.7) LVDs 3.70 cm (3.5-5.7) IVSd 0.80 cm (0.6-1.1) PWd 0.72 cm (0.6-1.1) EF (Teich) 60.70% FS 32.80% EDV (Teich) 148.00 mL ESV (Teich) 58.10 mL LV Diastology E Decel Time 207 (160-240 msec) E/A Ratio 0.7 Mitral Valve MV E Max Meir. 65.0 (40-130 cm/s) MV A Velocity 88.0 (40-130 cm/s) E/A Ratio 0.74 MV PHT 61.0 ms Left Ventricle The left ventricle is normal size. There is increased LV wall thickness. The left ventricular systolic function is normal. The left ventricular ejection fraction is within the normal range. There is normal LV segmental wall motion. Transmitral Doppler flow pattern suggests impaired LV relaxation. LVEF is 55%. Right Ventricle The right ventricle is normal size. The right ventricular systolic function is normal. Atria The left atrium size is normal. The right atrium size is normal. There is no Doppler evidence of interatrial shunt. Aortic Valve Aortic valve is mildly thickened. There is no aortic valvular stenosis. Trace aortic regurgitation. Mitral Valve The mitral valve leaflets are mildly thickened. Trace mitral regurgitation. No evidence of mitral valve stenosis. Tricuspid Valve The tricuspid valve leaflets are thin and pliable. Trace tricuspid regurgitation. There is insufficient TR jet to estimate RVSP. Pulmonic Valve The pulmonary valve is normal in structure. Trace pulmonic regurgitation. Great Vessels The aortic root is normal in size. The ascending aorta is not well-visualized. IVC is normal in size and collapses >50% with inspiration. Pericardium There is no pericardial effusion. Other Information Study Quality: Adequate Conclusion Normal biventricular systolic function. No significant valvular stenosis or regurgitation. Electronically signed by : Leticia Arriaga MD 11/22/2024 10:03:49
--- NOTE | 2024-11-22 06:52 | EXP.SURG.PN ---
Subjective Narrative: Patient without complaints. Has some dyspepsia or heartburn type symptoms. Exam Data for Last 24 hours Vital signs and Labs for Last 24 Hours: Temp Pulse Resp BP Pulse Ox O2 Del Method 97.9 F 74 18 136/69 95 Room Air 11/22/24 04:00 11/22/24 04:00 11/22/24 04:00 11/22/24 04:00 11/22/24 04:00 11/22/24 05:00 Laboratory Results - last 24 hr 11/21/24 10:05: WBC 11.9 H, RBC 4.10 L, Hgb 13.1 L, Hct 38.8 L, MCV 94.6 H, MCH 32.0 H, MCHC 33.8, RDW 13.5, Plt Count 294, MPV 9.1, Neut % (Auto) 72.1, Lymph % (Auto) 16.6, [place] % (Auto) 9.4 H, Eos % (Auto) 0.7, Baso % (Auto) 0.7, Neut # (Auto) 8.6 H, Lymph # (Auto) 2.0, [place] # (Auto) 1.1 H, Eos # (Auto) 0.1, Baso # (Auto) 0.1, PT 10.2, INR 0.92, APTT 27.2, Sodium 130 L, Potassium 5.2 H, Chloride 97 L, Carbon Dioxide 25, Anion Gap 13.2, BUN 19, Creatinine 1.10, Estimated Creat Clear 61, Estimated GFR 64, Est GFR ( Amer) 78, Glucose 99, Calcium 9.3, Total Bilirubin 0.9, AST 59, ALT 33, Alkaline Phosphatase 68, Troponin I < 0.01, NT-Pro-B Natriuret Pep 141, Total Protein 7.4, Albumin 4.2, Globulin 3.2, Albumin/Globulin Ratio 1.3, Lipase 197 I & O for Last 24 hours: Intake & Output 11/19/24 11/20/24 11/21/24 11/22/24 11:59 11:59 11:59 11:59 Intake Total 720 / 720 Output Total 0 / 0 Balance 720 / 720 Weight 184 lb 184 lb *Routine Abdominal Exam Abdominal: Present soft; Absent tenderness Progress Note: A&P Assessment and plan (1) Acute cholecystitis: Status: Acute Assessment and plan: Echocardiogram, ultrasound, repeat blood work. (2) Gallstones: Status: Acute (3) Hypertension: Status: Chronic (4) Hyperlipidemia: Status: Chronic (5) CVA (cerebral vascular accident): Status: Chronic
[2024-11-22 06:59] LABS: Basophils # 0.1 K/mm3 (0-0.2); Basophils % 0.6 % (0.1-2.0); Eosinophils # 0.1 K/mm3 (0.0-0.4); Eosinophils % 0.9 % (0.1-12.0); Hematocrit 36.8 % (42.0-52.0); Hemoglobin 12.4 g/dL (14.1-18.0); Lymphocytes % 16.9 % (10-50); Mean Corpuscular HGB Conc 33.7 g/dL (31.8-35.4); Mean Corpuscular Hemoglobin 31.6 pg (27.0-31.2); Mean Corpuscular Volume 93.6 fl (80-94); Mean Platelet Volume 9.3 fl (7.4-10.4); Monocytes % 8.6 % (1.7-9.3); Neutrophils # 8.8 K/mm3 (1.8-7.8); Neutrophils % 72.8 % (37.0-80.0); Platelet Count 294 K/mm3 (142-424); Red Blood Count 3.93 M/mm3 (4.60-6.20); Red Cell Distribution Width 13.4 % (11.5-17.5)
--- NOTE | 2024-11-22 07:00 | US_ITS ---
FINAL REPORT CLINICAL HISTORY: RUQ pain, stones, colic COMPARISON: None FINDINGS: Sonographic images of the right upper quadrant were obtained. The pancreas is partially obscured.The liver has an unremarkable appearance. There are multiple echogenic shadowing stones in the gallbladder. There is gallbladder wall thickening measuring 4 mm. There is no evidence of biliary ductal dilatation. The common duct measures 9 mm. There is a 6.5 x 4.9 cm cyst in the superior pole of the right kidney. IMPRESSION: Gallstones with mildly thickened gallbladder wall. Right renal cyst. Reviewed, Interpreted and Dictated by Adam Live MD Transcribed by Anika Ledezma Authenticated and [facility]
[2024-11-22 07:19] LABS: INR 0.91 (0.9-1.1); Prothrombin Time 10.1 seconds (9.2-12.1)
[2024-11-22 07:33] LABS: Alanine Aminotransferase 78 U/L (12-78); Albumin/Globulin Ratio 1.4 (1.1-1.8); Alkaline Phosphatase 81 U/L (38-126); Anion Gap 10.8 mEq/L (5-15); Aspartate Amino Transferase 89 U/L (17-59); Bilirubin,Total 0.4 mg/dl (0.2-1.3); Blood Urea Nitrogen 18 mg/dl (9-20); Calcium 9.3 mg/dl (8.4-10.2); Carbon Dioxide 25 mmol/L (22.0-30.0); Chloride 101 mmol/L (98-107); Creatinine Clearance Estimated 52 mL/min (50-200); Estimated Glomerular Filt Rate 53 ml/min (>60); GFR (African American) 64 ML/MIN (>60); Globulin 2.8 g/dL (1.3-3.2); Glucose 89 mg/dl (74-100); Potassium 4.8 mmoL/L (3.5-5.1); Sodium 132 mmol/L (136-145); Total Protein,Serum 6.8 g/dl (6.3-8.2)
--- NOTE | 2024-11-22 08:43 | P.CONCA_ITS ---
History of Present Illness History of Present Illness Consult date: 11/22/24 Requesting physician: Norman Flores Consult reason: pre-op evaluation Chief complaint: Substernal burning sensation Additional Medical History:: 1. Remote cigarette use (age 16-23)with halfway pipe use 2. Hypertension 3. Hypothyroidism 4. Gallstones 5. Remote CVA, 2007, transient left sided deficits, resolved after 2 wks. History of present illness: 84-year-old male with his hypertension, hypothyroid, hyperlipidemia, and CVA with no residual deficits. Presents to the ER with complaint of epigastric pain. States it started early this morning, he took 2 aspirin and 2 Pepcid with no improvement in his discomfort. Called his son who encouraged him to go to the ER for evaluation. States the pain does not radiate. Denies nausea or vomiting. Mild to moderate intensity. Has never had pain like this before he states. No vomiting or diarrhea. Denies constipation, had a bowel movement last night. Alert and oriented in the ER. Hemodynamically stable. On workup in the ER, found to have gallstones. Does have moderate stool burden in his colon on CT abdomen. Liver enzymes normal. Given concern for choledocholithiasis, surgery was contacted. Recommended admission for further evaluation and possible surgery. Medicine consulted for admission. On evaluation, patient denies belkis chest pain. With right upper quadrant palpation, this reproduces his epigastric pain. States that the pain was present when he woke up. Not made worse by eating sausage for breakfast. States he is more or less pain-free now unless his belly is pressed on. The above per Dr. Flores's H&P The above events confirmed with the patient. Known to have gallstones for many years. Denies any known cardiac issues. Retired but stays active without chest pain/exertional SOA. Troponins normal here with no acute changes on EKG. [facility] Disclaimer: The information contained in this section may have been updated after the patient was seen, as this information can be updated by other users. Medical History (Updated 11/22/24 @ 08:45 by BRYAN Cheng) Cholecystitis CVA (cerebral vascular accident) Hyperlipidemia Hypertension Family History Other Hypertension Stroke Social History Smoking Status: Current every day smoker tobacco type: pipe second hand exposure: Yes alcohol intake: current alcohol intake frequency: a few times a week current occupational status: employed Travel in the last 8 weeks: None household members: spouse housing: house current occupation: current occupational exposures/hazards: No caffeine: Yes Have you lived/traveled outside US in past 30 days?: No Contact w/someone who lives/traveled outside US past 30 days?: No Exposure to someone with infectious disease in past 14 days?: No Do you have a fever (greater than 100.4 F or 38 C)?: No Have you tested positive for COVID-19: No Exposed to someone with COVID-19 in past 14 days?: No Do you have a sore throat?: No Do you have a cough?: No Do you have any weakness?: No Do you have any diarrhea?: No Are you experiencing any unusual bleeding?: No Do you have any muscle aches/pain?: No Do you have any abdominal pain?: No Are you experiencing loss of taste or smell?: No Review of Systems Review of Systems Review of systems:: pertinent systems reviewed and negative unless documented below *Cardiovascular Cardiovascular: Reports as per HPI, Denies chest pain, Denies chest pain with activity and Denies dyspnea on exertion *Respiratory Respiratory: Denies dyspnea on exertion *Gastrointestinal Gastrointestinal: Reports as per HPI Exam Data for Last 24 hours Vital signs and Labs for Last 24 Hours: Temp Pulse Resp BP Pulse Ox O2 Del Method 97.9 F 74 18 136/69 95 Room Air 11/22/24 04:00 11/22/24 04:00 11/22/24 04:00 11/22/24 04:00 11/22/24 04:00 11/22/24 06:46 Laboratory Results - last 24 hr 11/21/24 10:05: WBC 11.9 H, RBC 4.10 L, Hgb 13.1 L, Hct 38.8 L, MCV 94.6 H, MCH 32.0 H, MCHC 33.8, RDW 13.5, Plt Count 294, MPV 9.1, Neut % (Auto) 72.1, Lymph % (Auto) 16.6, [place] % (Auto) 9.4 H, Eos % (Auto) 0.7, Baso % (Auto) 0.7, Neut # (Auto) 8.6 H, Lymph # (Auto) 2.0, [place] # (Auto) 1.1 H, Eos # (Auto) 0.1, Baso # (Auto) 0.1, PT 10.2, INR 0.92, APTT 27.2, Sodium 130 L, Potassium 5.2 H, Chloride 97 L, Carbon Dioxide 25, Anion Gap 13.2, BUN 19, Creatinine 1.10, Estimated Creat Clear 61, Estimated GFR 64, Est GFR ( Amer) 78, Glucose 99, Calcium 9.3, Total Bilirubin 0.9, AST 59, ALT 33, Alkaline Phosphatase 68, Troponin I < 0.01, NT-Pro-B Natriuret Pep 141, Total Protein 7.4, Albumin 4.2, Globulin 3.2, Albumin/Globulin Ratio 1.3, Lipase 197 11/22/24 06:37: WBC 12.0 H, RBC 3.93 L, Hgb 12.4 L, Hct 36.8 L, MCV 93.6, MCH 31.6 H, MCHC 33.7, RDW 13.4, Plt Count 294, MPV 9.3, Neut % (Auto) 72.8, Lymph % (Auto) 16.9, [place] % (Auto) 8.6, Eos % (Auto) 0.9, Baso % (Auto) 0.6, Neut # (Auto) 8.8 H, Lymph # (Auto) 2.0, [place] # (Auto) 1.0, Eos # (Auto) 0.1, Baso # (Auto) 0.1, PT 10.1, INR 0.91, Sodium 132 L, Potassium 4.8, Chloride 101, Carbon Dioxide 25, Anion Gap 10.8, BUN 18, Creatinine 1.30 H, Estimated Creat Clear 52, Estimated GFR 53 L, Est GFR ( Amer) 64, Glucose 89, Calcium 9.3, Magnesium 2.0, Total Bilirubin 0.4, AST 89 H D, ALT 78 D, Alkaline Phosphatase 81, Total Protein 6.8, Albumin 4.0, Globulin 2.8, Albumin/Globulin Ratio 1.4 I & O for Last 24 hours: Intake & Output 01/24/25 01/25/25 01/26/25 01/27/25 11:59 11:59 11:59 11:59 Intake Total 720 / 720 Output Total 0 / 0 Balance 720 / 720 Weight 184 lb 184 lb Constitutional Constitutional: no acute distress *Routine Respiratory Exam Respiratory: Present CTA bilaterally; Absent rales or wheezes *Routine Cardiovascular Exam Cardiovascular: Present RRR; Absent murmur, gallop or rubs *Routine Extremities Exam Extremities: Absent edema *Routine Neurological Exam Neurological: Present alert, oriented X3 and CN II-XII intact Meds Home Medications and Allergies Home Medications ?Medication ?Instructions ?Recorded ?Confirmed ?Type amlodipine 5 mg tablet 5 mg PO BID 09/07/19 11/21/24 History ascorbic acid (vitamin C) 1,000 mg 1,000 mg PO DAILY 09/07/19 11/21/24 History tablet aspirin 325 mg tablet 325 mg PO DAILY 09/07/19 11/21/24 History cyanocobalamin (vitamin B-12) 2,500 mcg PO DAILY 09/07/19 11/21/24 History 2,500 mcg tablet lisinopril 10 mg tablet 10 mg PO BID 09/07/19 11/21/24 History leysextt-vgb-gdbzb acid 0.4 1 each PO DAILY 09/07/19 11/21/24 History mg-lycopene 300 mcg-lutein 250 mcg tablet omega-3 fatty acids 300 mg capsule 1,000 mg PO DAILY 09/07/19 11/21/24 History simvastatin 10 mg tablet 10 mg PO DAILY 09/07/19 11/21/24 History alfuzosin 10 mg tablet,extended 10 mg PO BID 11/21/24 11/21/24 History release 24 hr levothyroxine 88 mcg tablet 88 mcg PO DAILY 11/22/24 11/22/24 History New Prescriptions to Start Prescriptions: Allergies Allergy/AdvReac Type Severity Reaction Status Date / Time No Known Allergies Allergy Verified 05/21/22 09:23 Assessment and Plan *Assessment and plan (1) Acute cholecystitis: Status: Acute Category: Medical Code(s): K81.0 - Acute cholecystitis (2) Gallstones: Status: Acute Category: Medical Code(s): K80.20 - Calculus of gallbladder without cholecystitis without obstruction (3) Hypertension: Status: Chronic Qualifiers: Hypertension type: primary hypertension Qualified Code(s): I10 - Essential (primary) hypertension Category: Medical Code(s): I10 - Essential (primary) hypertension (4) Hyperlipidemia: Status: Chronic Qualifiers: Hyperlipidemia type: mixed hyperlipidemia Qualified Code(s): E78.2 - Mixed hyperlipidemia Category: Medical Code(s): E78.5 - Hyperlipidemia, unspecified (5) Remote history of stroke: Status: Acute Category: Medical Code(s): Z86.73 - Personal history of transient ischemic attack (TIA), and cerebral infa rction without residual deficits Plan 1. Epigastric burning sensation without N/V or diarrhea -Troponins normal -No acute EKG changes (Sinus rhythm at 75 bpm) 2. Gallstones with mild elevated white count 12,000 and Villarreal's sign -Defer to Hospitalists and Surgery -Mild AST elevation -Abd CT shows gallstones without acute intra-abdominal process/inflammatory process/obstruction. Prominent common bile duct noted. Large amount of stool throughout the large bowel. 3. Hypertension -Controlled on combination of Norvasc and lisinopril -Preliminary echocardiogram shows preserved ejection fraction 4. Hyperlipidemia -Controlled on combination of simvastatin and fish oil 5. Hypothyroidism -On replacement therapy 6. Remote history of CVA, 2006, transient left-sided deficits Echo shows normal biventricular systolic function with no significant valve disease. Pt is an average cardiac risk for non-cardiac surgery. Please call again if needed. Follow-up in our office in 2 to 3 weeks.
--- NOTE | 2024-11-22 08:50 | HMH.PHAINT1 ---
Pharmacy Intervention Comments: HOME MEDICATION LIST VERIFIED USING LIST FROM OUTPATIENT PHARMACY
[2024-11-22] MEDS: AMLODIPINE 5MG TABLET 5 MG PO ×2 (09:49→20:10)
[2024-11-22] MEDS: LISINOPRIL 10MG TABLET 10 MG PO ×2 (09:50→20:10)
[2024-11-22] MEDS: LEVOTHYROXINE 112MCG (0.112MG) TAB 112 MCG PO (09:50)
[2024-11-22] MEDS: SENNOSIDES 8.6MG/DOCUSATE 50MG TABLET 1 TAB PO ×2 (09:56→20:10)
--- NOTE | 2024-11-22 11:53 | P.PN_ITS ---
Subjective *Date: 11/22/24 *Time: 21:05 Interval history: Patient more or less pain-free on morning rounds. Labs stable. No nausea or vomiting. Requesting coffee. Extensive discussion about risks and benefits of proceeding with surgery versus home and doing procedure as an outpatient. Patient would like to stay and have procedure done now. Hemodynamically stable. Medical Exam Vital signs and Labs for Last 24 Hours: Vital Signs Temp Pulse Pulse Resp BP BP Pulse Ox 11/22/24 09:00 11/22/24 08:00 11/22/24 08:00 97.8 F 66 18 138/63 96 11/22/24 06:46 11/22/24 05:00 11/22/24 04:00 97.9 F 74 18 136/69 95 11/22/24 03:00 11/22/24 01:00 11/21/24 23:00 11/21/24 21:00 11/21/24 20:00 11/21/24 19:56 97.8 F 74 16 151/75 H 98 11/21/24 17:15 11/21/24 17:11 11/21/24 16:20 11/21/24 16:00 98 F 71 16 145/73 H 99 11/21/24 14:20 97.6 F 75 14 151/73 H 97 11/21/24 14:13 11/21/24 13:45 68 17 133/58 L 95 11/21/24 13:43 98.2 F 76 20 158/69 H 11/21/24 13:30 70 17 151/69 H 94 L 11/21/24 13:15 73 17 146/69 H 95 11/21/24 13:00 70 18 143/66 H 94 L 11/21/24 12:45 74 19 141/67 H 96 11/21/24 12:30 71 17 141/69 H 94 L 11/21/24 12:15 70 19 139/70 95 O2 Del Method 11/22/24 09:00 Room Air 11/22/24 08:00 Room Air 11/22/24 08:00 Room Air 11/22/24 06:46 Room Air 11/22/24 05:00 Room Air 11/22/24 04:00 Room Air 11/22/24 03:00 Room Air 11/22/24 01:00 Room Air 11/21/24 23:00 Room Air 11/21/24 21:00 Room Air 11/21/24 20:00 Room Air 11/21/24 19:56 Room Air 11/21/24 17:15 Room Air 11/21/24 17:11 Room Air 11/21/24 16:20 Room Air 11/21/24 16:00 Room Air 11/21/24 14:20 Room Air 11/21/24 14:13 Room Air 11/21/24 13:45 Room Air 11/21/24 13:43 Room Air 11/21/24 13:30 Room Air 11/21/24 13:15 Room Air 11/21/24 13:00 Room Air 11/21/24 12:45 11/21/24 12:30 11/21/24 12:15 Intake and Output 11/21/24 11/22/24 11/22/24 23:59 07:59 15:59 Intake Total 360 / 720 360 / 360 Output Total 0 / 0 0 / 0 Balance 360 / 720 360 / 360 Intake: Intake, Oral Amount 360 / 720 360 / 360 Output: Output, Urine Amount 0 / 0 0 / 0 Other: Number of Voids 2 Number of Unmeasured Voids 1 3 Weight 83.461 kg Patient Weight 11/22/24 23:59 Weight 83.461 kg Laboratory Results - last 24 hr 11/22/24 06:37: WBC 12.0 H, RBC 3.93 L, Hgb 12.4 L, Hct 36.8 L, MCV 93.6, MCH 31.6 H, MCHC 33.7, RDW 13.4, Plt Count 294, MPV 9.3, Neut % (Auto) 72.8, Lymph % (Auto) 16.9, [place] % (Auto) 8.6, Eos % (Auto) 0.9, Baso % (Auto) 0.6, Neut # (Auto) 8.8 H, Lymph # (Auto) 2.0, [place] # (Auto) 1.0, Eos # (Auto) 0.1, Baso # (Auto) 0.1, PT 10.1, INR 0.91, Sodium 132 L, Potassium 4.8, Chloride 101, Carbon Dioxide 25, Anion Gap 10.8, BUN 18, Creatinine 1.30 H, Estimated Creat Clear 52, Estimated GFR 53 L, Est GFR ( Amer) 64, Glucose 89, Calcium 9.3, Magnesium 2.0, Total Bilirubin 0.4, AST 89 H D, ALT 78 D, Alkaline Phosphatase 81, Total Protein 6.8, Albumin 4.0, Globulin 2.8, Albumin/Globulin Ratio 1.4 I & O for Labs for Last 24 Hours: Intake & Output 11/19/24 11/20/24 11/21/24 11/22/24 23:59 23:59 23:59 23:59 Intake Total 360 / 720 360 / 360 Output Total 0 / 0 0 / 0 Balance 360 / 720 360 / 360 Weight 83.461 kg 83.461 kg Constitutional: Present no acute distress, average body habitus and cooperative Head: Present atraumatic and normocephalic ENT: Present normal exam Respiratory: Present normal respiratory effort; Absent rhonchi, wheezes or crackles Cardiac: Present Reg Rate and Rhythm GI: Present soft and normal bowel sounds; Absent distention or tenderness Extremities: Present normal inspection and full ROM Skin: Present intact; Absent erythema Neuro: Present Grossly Intact, alert, awake, oriented x 3 and moves all extremities Assessment and Plan *Assessment and plan (1) Acute cholecystitis: Status: Acute Category: Medical Code(s): K81.0 - Acute cholecystitis (2) Gallstones: Status: Acute Category: Medical Code(s): K80.20 - Calculus of gallbladder without cholecystitis without obstruction (3) Hypertension: Status: Chronic Qualifiers: Hypertension type: primary hypertension Qualified Code(s): I10 - Essential (primary) hypertension Category: Medical Code(s): I10 - Essential (primary) hypertension (4) Hyperlipidemia: Status: Chronic Qualifiers: Hyperlipidemia type: mixed hyperlipidemia Qualified Code(s): E78.2 - Mixed hyperlipidemia Category: Medical Code(s): E78.5 - Hyperlipidemia, unspecified (5) CVA (cerebral vascular accident): Status: Chronic Category: Medical Code(s): I63.9 - Cerebral infarction, unspecified Plan 84-year-old male who presents with epigastric pain. Differential includes GERD, constipation, gallbladder disease. Imaging concerning for gallstones. Given presence of right upper quadrant pain/discomfort reproducing his epigastric pain when pressed on abdomen, had discussion with the ER about admission. Request admission for surgical eval and further management. I agreed to admit for further treatment. Surgery evaluated. Patient appears hemodynamically stable. Plan for cholecystectomy today. Evaluated by cardiology, optimized for procedure. Will monitor overnight after procedure. Problems addressed as follows: Choledocholithiasis Acute cholecystitis -CT per my review shows numerous calcified stones in the neck of the gallbladder. Mild positive Villarreal sign on exam -White count stable at 12. Liver enzymes with bilirubin 0.4, AST 89, ALT 78, alk phos 81. Kidney function normal with BUN 18, creatinine 1.3. -No pain today however gallbladder on ultrasound concerning for significant gallstone burden. Decision made to proceed with cholecystectomy today. -Discussed case with surgeon after surgery, cholecystectomy are straightforward. Recommend monitoring overnight with advancement of diet and discharge in the morning if stable. -Repeat CBC, CMP, magnesium ordered for the morning. Hypothyroid: Continue levothyroxine 112 mcg daily Hypertension: Continue home alfuzosin 10 mg twice daily, amlodipine 5 mg twice daily, lisinopril 10 mg twice daily Will hold statin for lipids at this time. Patient appears to be constipated on exam and CT of abdomen per my review. Continue bowel regimen with MiraLAX daily and docusate senna 1 capsule twice daily. GERD: Continue pantoprazole 40 mg nightly Full code Holding anticoagulation in anticipation of surgery N.p.o. until after surgery.
--- NOTE | 2024-11-22 16:13 | P.PNANES_ITS ---
[facility] Disclaimer: The information contained in this section may have been updated after the patient was seen, as this information can be updated by other users. Medical History (Updated 11/22/24 @ 08:45 by BRYAN Cheng) Cholecystitis CVA (cerebral vascular accident) Hyperlipidemia Hypertension Family History Other Hypertension Stroke Social History Smoking Status: Current every day smoker tobacco type: pipe second hand exposure: Yes alcohol intake: current alcohol intake frequency: a few times a week substance use type: denies use current occupational status: employed Travel in the last 8 weeks: None household members: spouse housing: house current occupation: [employer] current occupational exposures/hazards: No caffeine: Yes [facility] Anesthesia Checklist Patient Identification Patient Identification: Arm Band and Verbal (Name & ) Structural Data Admitted From: Inpatient (-[id number]) Planned Operative Procedure/s: Lap. vera Consent for Planned Operative Procedure(s) Verified: Yes Verified Documents: Surgical Consent and History and Physical NPO Status Verified Time NPO: 22:00 Chart Verification Results Verified: CBC, BMP, PT, PTT, INR, ECG and Chest Xray Additional verifications Patient : No Anesthesia Reactions: No Cardiovascular Assessment Heart Sounds: S1 & S2 Pulse Rhythm: Irregular Peripheral Edema: No Airway Assessment Mallampati Score:: Class II C-Spine Mobility Assessed: Yes (FROM demonstrated) TMJ Mobility Assessed: Yes Dentition: Poor Dentition (Many missing teeth, including top front middle. Nothing lose per pt.) Neurological Assessment Level of Consciousness: Awake, Alert, Appropriate and Follows Commands Hx Seizures: No Numbness or tingling in extremities: No Anesthesia Plan Anesthesia Risk discussed: Yes Anesthesia Plan: Verified ASA Class: III Anesthesia Type: General
[2024-11-22] MEDS: ROPIVACAINE 0.5% 30ML VIAL 150 MG (17:34)
[2024-11-22] MEDS: LIDOCAINE 1% 20ML MDV 20 ML (17:34)
--- NOTE | 2024-11-22 18:19 | EXP.OP.NOTE ---
Date of procedure: 11/22/24 Pre-op Diagnosis:: Cholecystitis Post-op Diagnosis:: Same Procedure performed:: Laparoscopic cholecystectomy Surgeon:: Josef Griffin MD [employer] VICE PRESIDENT:: Sosa Akhtar Anesthesia: GETA Estimated blood loss (mL): 15 Clinical Note:: Patient is an 84-year-old male from [place] with history of hypertension, hyperlipidemia, prior CVA with no residual deficits, known history of gallstones. He had acute onset of moderately intense epigastric pain early this morning on 11/21/2024 approximately 4 AM. He had taken 2 aspirin and 2 Pepcid without relief. He presented to the emergency department. On examination he was found to have tenderness right upper quadrant and epigastrium with Villarreal sign. He did undergo bedside [id number] ultrasound which revealed borderline gallbladder wall thickening and distention with multiple gallstones and normal common bile duct. CT scan was performed which revealed numerous gallstones with prominence of the common bile duct and questionable mild intrahepatic biliary ductal dilatation but no definite evidence of choledocholithiasis. He had a large amount of stool throughout the colon. Laboratory assessment revealed white blood cell count 11,900. Renal function normal. LFTs and pancreatic enzymes normal. Given the degree of his tenderness with mild leukocytosis it was felt that patient warranted inpatient admission. After admission patient has had some improvement in his symptoms. The following morning his white blood cell count was essentially unchanged at 12,000. He underwent ultrasound which revealed gallstones with mildly thickened gallbladder wall with normal common bile duct. Discussion was held with the patient. Plan was made to proceed with cholecystectomy as an inpatient. . Operative findings:: He had a distended somewhat edematous gallbladder with multiple small to moderate gallstones. There were omental adhesions to the gallbladder. Operative note:: Consent was obtained patient was taken the operating room. He was positioned in supine position. General anesthesia was induced via endotracheal tube. Abdomen was prepped and draped in the standard surgical fashion. Subumbilical skin incision was made while performing abdominal wall lift Veress needle was inserted. CO2 pneumoperitoneum was achieved to 15 mmHg. 11 mm optical trocar was inserted at the umbilicus. It appears that he likely had the beginnings of a umbilical hernia and the trocar was inserted through this site. Patient was positioned in reverse Trendelenburg with left side down. A couple 5 mm trocars were inserted in the right upper abdomen. 10 mm trocar was inserted in the epigastrium. Gallbladder was distended and somewhat thickened. It was grasped retracted anteriorly and superiorly over the dome of the liver. There were omental adhesions as acute inflammatory response to the gallbladder. These were taken down using blunt dissection. There was some acute edema of the gallbladder. Dissection was carried down to the neck of the gallbladder which was retracted anterior laterally. Blunt dissection was carried out the neck of the gallbladder bluntly incising the visceral peritoneum. Ultimately the cystic duct and cystic artery were clearly identified and isolated and the critical view of safety. The cystic duct was multiply clipped and sharply divided. Cystic artery was carefully coagulated with VIOLETTA ultrasonic harmonic adam and divided. Gallbladder was dissected free from the liver in a retrograde fashion using VIOLETTA ultrasonic harmonic adam. There was some unavoidable spillage of bile during the dissection process and this was immediately suctioned free. Gallbladder was placed within an Endo Catch retrieval device and removed from the peritoneal cavity via the umbilical trocar site. Gallbladder fossa was inspected for hemostasis which was assured. Irrigation and suctioning was performed until clear. Trocars removed and CO2 pneumoperitoneum was evacuated. Fascia at the umbilicus was closed with a couple of 0 Ethibond sutures. Local anesthetic was infiltrated. Skin was closed with 4-0 Monocryl in a subcuticular fashion. Dermabond and dressings were applied. . Condition: stable Disposition: PACU Complications:: None immediately apparent
--- NOTE | 2024-11-22 18:31 | P.PNANES_ITS ---
[facility] Anesthesia Record Part I Anesthesia Record I Intake, IV Amount: 700 Hydration: Adequate Estimated blood loss (mL): 10 Urine output (mL): 0 Blood Products used (#): none Blood Pressure: 135/55 SaO2: 93 Pulse Rate: 80 Airway Patency: Patent Respiratory Rate: 18 Temperature: 97.2 F Patient is:: Drowsy, Oral/Nasal airway (10.[address] upon arrival to PACU.) and Stable Stable to PACU at:: 18:25
[2024-11-22] MEDS: TAMSULOSIN 0.4MG CAPSULE 0.4 MG PO (20:10)
[2024-11-22] MEDS: PANTOPRAZOLE 40MG TABLET 40 MG PO (20:10)
[2024-11-22] MEDS: CALCIUM CARBONATE 500MG CHEWTAB 500 MG PO (21:57)
[2024-11-23 00:50] VITALS: BP 139/62; PULSE 92; RESP 14; O2SAT 93
[2024-11-23 04:00] VITALS: BP 99/56; PULSE 79; RESP 16; TEMP 36.6; O2SAT 97; BMI 25.2
--- NOTE | 2024-11-23 04:36 | PC.NURSE ---
Pt A&OX4 and has tolerated room air. Lung sounds clear and bowel sounds active. He did have some tenderness in lap incisions but did not require any pain medication. He did complain of heart burn once and was medicated per MAR. He has ambulated the room and halls independently. Family has remained at bedside. Currently resting in bed with call light within reach.
[2024-11-23] MEDS: LEVOTHYROXINE 112MCG (0.112MG) TAB 112 MCG PO (06:20)
[2024-11-23 06:47] LABS: Basophils % 0.1 % (0.1-2.0); Eosinophils % 0.1 % (0.1-12.0); Hematocrit 34.6 % (42.0-52.0); Hemoglobin 11.8 g/dL (14.1-18.0); Lymphocytes # 1.4 K/mm3 (0.7-4.5); Lymphocytes % 9.1 % (10-50); Mean Corpuscular HGB Conc 34.1 g/dL (31.8-35.4); Mean Corpuscular Hemoglobin 32.2 pg (27.0-31.2); Mean Corpuscular Volume 94.3 fl (80-94); Mean Platelet Volume 9.6 fl (7.4-10.4); Monocytes # 0.7 K/mm3 (0.1-1.0); Monocytes % 4.4 % (1.7-9.3); Neutrophils % 85.8 % (37.0-80.0); Platelet Count 285 K/mm3 (142-424); Red Blood Count 3.67 M/mm3 (4.60-6.20); Red Cell Distribution Width 13.5 % (11.5-17.5); White Blood Count 15.1 K/mm3 (4.8-10.8)
[2024-11-23 06:51] LABS: MANUAL DIFFERENTIAL MANUAL DIFFERENTIAL (MANUAL DIFF)
[2024-11-23 07:00] LABS: Alanine Aminotransferase 77 U/L (12-78); Albumin/Globulin Ratio 1.5 (1.1-1.8); Alkaline Phosphatase 96 U/L (38-126); Anion Gap 12.7 mEq/L (5-15); Aspartate Amino Transferase 78 U/L (17-59); Bilirubin,Total 0.5 mg/dl (0.2-1.3); Blood Urea Nitrogen 20 mg/dl (9-20); Calcium 9.3 mg/dl (8.4-10.2); Carbon Dioxide 23 mmol/L (22.0-30.0); Chloride 99 mmol/L (98-107); Creatinine Clearance Estimated 55 mL/min (50-200); Estimated Glomerular Filt Rate 58 ml/min (>60); GFR (African American) 70 ML/MIN (>60); Globulin 2.7 g/dL (1.3-3.2); Glucose 155 mg/dl (74-100); Magnesium 1.9 mg/dl (1.6-2.3); Potassium 4.7 mmoL/L (3.5-5.1); Sodium 130 mmol/L (136-145); Total Protein,Serum 6.7 g/dl (6.3-8.2)
--- NOTE | 2024-11-23 07:29 | EXP.ANES.II ---
[facility] Anesthesia Record Part II Anesthesia Record Part II Discharge Time: 18:50 Destination: Medical Surgical Department PACU nurse assessment reviewed?: Yes Patient Condition:: Good Anesthesia Complications:: None Swallowing reflex intact?: Yes Airway Patency: Patent Cyanosis?: No Blood Pressure: 124/66 SaO2: 98 Respiratory Rate: 16 Pulse Rate: 96 Temperature: 97.2 F Mental Status: Alert & Oriented Pain level:: 0 Nausea and/or vomitting:: None Intake, IV Amount: 700 Hydration: Adequate
[2024-11-23 07:32] VITALS: BP 124/66; PULSE 96; RESP 16; TEMP 36.2; O2SAT 98
[2024-11-23 07:36] VITALS: BP 132/64; PULSE 76; RESP 18; TEMP 36.7; O2SAT 98
--- NOTE | 2024-11-23 07:50 | EXP.SURG.PN ---
Subjective Narrative: Patient doing well after surgery. No complaints. Tolerating low-fat diet. Anxious to go home. Exam Data for Last 24 hours Vital signs and Labs for Last 24 Hours: Temp Pulse Resp BP Pulse Ox O2 Del Method O2 Flow Rate 98.1 F 76 18 132/64 98 Room Air 2 11/23/24 07:36 11/23/24 07:36 11/23/24 07:36 11/23/24 07:36 11/23/24 07:36 11/23/24 07:36 11/22/24 21:50 Laboratory Results - last 24 hr 11/23/24 06:12: WBC 15.1 H D, RBC 3.67 L, Hgb 11.8 L, Hct 34.6 L, MCV 94.3 H, MCH 32.2 H, MCHC 34.1, RDW 13.5, Plt Count 285, MPV 9.6, Neut % (Auto) 85.8 H, Lymph % (Auto) 9.1 L, Jenkins % (Auto) 4.4, Eos % (Auto) 0.1, Baso % (Auto) 0.1, Neut # (Auto) 13.0 H, Lymph # (Auto) 1.4, Jenkins # (Auto) 0.7, Eos # (Auto) 0.0, Baso # (Auto) 0.0, Sodium 130 L, Potassium 4.7, Chloride 99, Carbon Dioxide 23, Anion Gap 12.7, BUN 20, Creatinine 1.20, Estimated Creat Clear 55, Estimated GFR 58 L, Est GFR ( Amer) 70, Glucose 155 H D, Calcium 9.3, Magnesium 1.9, Total Bilirubin 0.5, AST 78 H, ALT 77, Alkaline Phosphatase 96, Total Protein 6.7, Albumin 4.0, Globulin 2.7, Albumin/Globulin Ratio 1.5 I & O for Last 24 hours: Intake & Output 11/20/24 11/21/24 11/22/24 11/23/24 11:59 11:59 11:59 11:59 Intake Total 720 / 720 2380 / 2380 Output Total 0 / 0 0 / 0 Balance 720 / 720 2380 / 2380 Weight 184 lb 184 lb 180 lb *Routine Abdominal Exam Abdominal: Present soft Progress Note: A&P Assessment and plan (1) Acute cholecystitis: Status: Acute Assessment and plan: Okay for discharge home. Based on intraoperative findings should not require additional antibiotics. (2) Gallstones: Status: Acute (3) Hypertension: Status: Chronic (4) Hyperlipidemia: Status: Chronic (5) CVA (cerebral vascular accident): Status: Chronic
[2024-11-23] MEDS: AMLODIPINE 5MG TABLET 5 MG PO (08:51)
[2024-11-23] MEDS: SENNOSIDES 8.6MG/DOCUSATE 50MG TABLET 1 TAB PO (08:51)
[2024-11-23] MEDS: PIPERCILLIN/TAZO 3.375 GM in 0.9 % SODIUM CHLORIDE 50 ML IV (08:51)
[2024-11-23] MEDS: LISINOPRIL 10MG TABLET 10 MG PO (08:51)
[2024-11-23 09:15] LABS: Lymphocytes % 17 % (10-50); Monocytes % 3 % (2-9); Neutrophils % 80 % (42-76); Platelet Estimate Normal; RBC Morphology Normal; Total Cells Counted 100
--- NOTE | 2024-11-23 11:25 | P.DS_ITS ---
General Admission date:: 11/21/24 HPI HPI HPI: 84-year-old male with his hypertension, hypothyroid, hyperlipidemia, and CVA with no residual deficits. Presents to the ER with complaint of epigastric pain. States it started early this morning, he took 2 aspirin and 2 Pepcid with no improvement in his discomfort. Called his son who encouraged him to go to the ER for evaluation. States the pain does not radiate. Denies nausea or vo miting. Mild to moderate intensity. Has never had pain like this before he states. No vomiting or diarrhea. Denies constipation, had a bowel movement last night. Alert and oriented in the ER. Hemodynamically stable. On workup in the ER, found to have gallstones. Does have moderate stool burden in his colon on CT abdomen. Liver enzymes normal. Given concern for choledocholithiasis, surgery was contacted. Recommended admission for further evaluation and possible surgery. Medicine consulted for admission. On evaluation, patient denies belkis chest pain. With right upper quadrant palp ation, this reproduces his epigastric pain. States that the pain was present when he woke up. Not made worse by eating sausage for breakfast. States he is more or less pain-free now unless his belly is pressed on. Hospital Course Hospital Course Hospital Course: Momo huizar is a 84-year-old male who presented with epigastric pain and was admitted for cholecystitis Acute cholecystitis with cholelithiasis - CT per my review shows numerous calcified stones in the neck of the gallbladder. Mild positive Villarreal sign on exam. ? General Surgery consulted, s/p laparoscopic cholecystectomy on 11/22/2024. Patient tolerated procedure well. ? Tolerating oral intake, ambulating without issues. ? Discharged with Augmentin for 4 more days. Will follow-up with general surgery within 2 weeks. Hypothyroid: Continue levothyroxine 112 mcg daily Hypertension: Continue home alfuzosin 10 mg twice daily, amlodipine 5 mg twice daily, lisinopril 10 mg twice daily GERD: Continue pantoprazole 40 mg nightly Exam Data for Last 24 hours Vital signs and Labs for Last 24 Hours: Temp Pulse Resp BP Pulse Ox O2 Del Method O2 Flow Rate 98.1 F 76 18 132/64 98 Room Air 2 11/23/24 07:36 11/23/24 07:36 11/23/24 07:36 11/23/24 07:36 11/23/24 07:36 11/23/24 09:00 11/22/24 21:50 Laboratory Results - last 24 hr 11/23/24 06:12: WBC 15.1 H D, RBC 3.67 L, Hgb 11.8 L, Hct 34.6 L, MCV 94.3 H, MCH 32.2 H, MCHC 34.1, RDW 13.5, Plt Count 285, MPV 9.6, Neut % (Auto) 85.8 H, Lymph % (Auto) 9.1 L, Norman % (Auto) 4.4, Eos % (Auto) 0.1, Baso % (Auto) 0.1, Neut # (Auto) 13.0 H, Lymph # (Auto) 1.4, Norman # (Auto) 0.7, Eos # (Auto) 0.0, Baso # (Auto) 0.0, Total Counted 100, Neutrophils % (Manual) 80 H, Lymphocytes % (Manual) 17, Monocytes % (Manual) 3, Platelet Estimate Normal, RBC Morphology Normal, Sodium 130 L, Potassium 4.7, Chloride 99, Carbon Dioxide 23, Anion Gap 12.7, BUN 20, Creatinine 1.20, Estimated Creat Clear 55, Estimated GFR 58 L, Est GFR ( Amer) 70, Glucose 155 H D, Calcium 9.3, Magnesium 1.9, Total Bilirubin 0.5, AST 78 H, ALT 77, Alkaline Phosphatase 96, Total Protein 6.7, Albumin 4.0, Globulin 2.7, Albumin/Globulin Ratio 1.5 I & O for Last 24 hours: Intake & Output 11/20/24 11/21/24 11/22/24 11/23/24 23:59 23:59 23:59 23:59 Intake Total 360 / 720 1540 / 2040 1440 / 1440 Output Total 0 / 0 0 / 0 0 / 0 Balance 360 / 720 1540 / 2040 1440 / 1440 Weight 83.461 kg 83.461 kg 81.647 kg Constitutional Constitutional: no acute distress *Routine HEENT Exam Head: Present normocephalic Eye: Present EOMI and PERRL ENT: Present mucous membranes moist *Routine Neck Exam Neck: Present supple; Absent lymphadenopathy *Routine Respiratory Exam Respiratory: Present CTA bilaterally *Routine Cardiovascular Exam Cardiovascular: Present RRR *Routine Abdominal Exam Abdominal: Present soft *Routine Extremities Exam Extremities: Absent cyanosis, clubbing or edema *Routine Skin Exam Skin: Present warm; Absent rash *Routine Neurological Exam Neurological: Present alert and oriented X3 Results Data Completed and Pending Labs on day of discharge: Labs from last 24 hours 11/23/24 06:12 WBC 15.1 H D RBC 3.67 L Hgb 11.8 L Hct 34.6 L MCV 94.3 H MCH 32.2 H MCHC 34.1 RDW 13.5 Plt Count 285 MPV 9.6 Neut % (Auto) 85.8 H Lymph % (Auto) 9.1 L Norman % (Auto) 4.4 Eos % (Auto) 0.1 Baso % (Auto) 0.1 Neut # (Auto) 13.0 H Lymph # (Auto) 1.4 Norman # (Auto) 0.7 Eos # (Auto) 0.0 Baso # (Auto) 0.0 Total Counted 100 Neutrophils % (Manual) 80 H Lymphocytes % (Manual) 17 Monocytes % (Manual) 3 Platelet Estimate Normal RBC Morphology Normal Sodium 130 L Potassium 4.7 Chloride 99 Carbon Dioxide 23 Anion Gap 12.7 BUN 20 Creatinine 1.20 Estimated Creat Clear 55 Estimated GFR 58 L Est GFR ( Amer) 70 Glucose 155 H D Calcium 9.3 Magnesium 1.9 Total Bilirubin 0.5 AST 78 H ALT 77 Alkaline Phosphatase 96 Total Protein 6.7 Albumin 4.0 Globulin 2.7 Albumin/Globulin Ratio 1.5 DS: Diagnosis Discharge Diagnosis (1) Acute cholecystitis: Status: Resolved Code(s): K81.0 - Acute cholecystitis (2) Gallstones: Status: Resolved Code(s): K80.20 - Calculus of gallbladder without cholecystitis without obstruction (3) Hypertension: Status: Chronic Code(s): I10 - Essential (primary) hypertension Qualifiers: Hypertension type: primary hypertension Qualified Code(s): I10 - Essential (primary) hypertension (4) Hyperlipidemia: Status: Chronic Code(s): E78.5 - Hyperlipidemia, unspecified Qualifiers: Hyperlipidemia type: mixed hyperlipidemia Qualified Code(s): E78.2 - Mixed hyperlipidemia (5) CVA (cerebral vascular accident): Status: Chronic Code(s): I63.9 - Cerebral infarction, unspecified Meds Home Medications and Allergies Home Medications ?Medication ?Instructions ?Recorded ?Confirmed ?Type amlodipine 5 mg tablet 5 mg PO BID 09/07/19 11/21/24 History ascorbic acid (vitamin C) 1,000 mg 1,000 mg PO DAILY 09/07/19 11/21/24 History tablet aspirin 325 mg tablet 325 mg PO DAILY 09/07/19 11/21/24 History cyanocobalamin (vitamin B-12) 2,500 mcg PO DAILY 09/07/19 11/21/24 History 2,500 mcg tablet lisinopril 10 mg tablet 10 mg PO BID 09/07/19 11/21/24 History wsgfrizm-eid-keykk acid 0.4 1 each PO DAILY 09/07/19 11/21/24 History mg-lycopene 300 mcg-lutein 250 mcg tablet omega-3 fatty acids 300 mg capsule 1,000 mg PO DAILY 09/07/19 11/21/24 History simvastatin 10 mg tablet 10 mg PO DAILY 09/07/19 11/21/24 History alfuzosin 10 mg tablet,extended 10 mg PO BID 11/21/24 11/21/24 History release 24 hr levothyroxine 88 mcg tablet 88 mcg PO DAILY 11/22/24 11/22/24 History amoxicillin 500 mg-potassium 1 tab PO TID 4 days #12 tabs 11/23/24 Rx clavulanate 125 mg tablet (Augmentin) polyethylene glycol 3350 17 17 g PO DAILY #510 grams 11/23/24 Rx gram/dose oral powder (Miralax) New Prescriptions to Start Prescriptions: amoxicillin-pot clavulanate [Augmentin] Mendoza Stevenson polyethylene glycol 3350 [Miralax] Mendoza Stevenson Allergies Allergy/AdvReac Type Severity Reaction Status Date / Time No Known Allergies Allergy Verified 05/21/22 09:23 Discharge Plan Disposition Patient Disposition: Home, Self-Care Condition: Fair Follow up Plan Follow up with: John Duran MD [Primary Care Provider] - Enter time for follow up Josef Griffin MD [Staff Physician] - 12/09/24 9:15 am Prescriptions/Medication Reconciliation: New polyethylene glycol 3350 [Miralax] 17 gram/dose powder 17 g PO DAILY Qty: 510 0RF amoxicillin-pot clavulanate [Augmentin] 500-125 mg tablet 1 tab PO TID 4 Days Qty: 12 0RF Continued ascorbic acid (vitamin C) 1,000 MG tablet 1,000 mg PO DAILY aspirin 325 MG tablet 325 mg PO DAILY simvastatin 10 MG tablet 10 mg PO DAILY amlodipine 5 MG tablet 5 mg PO BID lisinopril 10 MG tablet 10 mg PO BID jyirsbir-mqu-UF-lycopen-lutein 1 EACH tablet 1 each PO DAILY omega-3 fatty acids 300 MG capsule 1,000 mg PO DAILY cyanocobalamin (vitamin B-12) 2,500 MCG tablet 2,500 mcg PO DAILY alfuzosin 10 mg Tablet Extended Release 24 Hr 10 mg PO BID levothyroxine 88 mcg tablet 88 mcg PO DAILY Problem Reconciliation Problems Reviewed?: Yes Patient Discharge Instructions Patient Instructions: DI for Gallstones, DI for Surgical Site Infection, DI for Laparoscopic Cholecystectomy Print Language: Uzbek Providers Primary Care Provider: oJhn Duran Admit Provider: Norman Flores Attending Provider: Norman Flores
--- NOTE | 2024-11-24 09:55 | SW/DCPLANNER ---
Spoke with patient on the phone. Patient stated that he feels he is doing fairly well just a little sore where they removed his gallbladder. Patient stated that he is aware of his upcoming appointment with the dr that done his surgery and that he will call and schedule an upcoming appointment with his primary care provider. Patient stated that his medicine was brought to him from clinic pharmacy before he was discharged. Patient stated that he has no concerns or questions at this time. Sharon Soto
== END 2024-11-23 11:58 | disposition home or self-care (01) ==
LOC: ER 13:32 → 2ND 13:38
PROVIDERS: Surgery; Admitting Provider Internal Medicine Adolescent Medicine; Emergency Provider Emergency Medicine; PCP Family Medicine; Visit Provider Internal Medicine Adolescent Medicine
PROC: 0FT44ZZ Resection of Gallbladder, Percutaneous Endoscopic Approach (ICD-10-PCS; CPT 47562; principal; 2024-11-22 14:15)
DX: K80.00 Calculus of gallbladder with acute cholecystitis without obstruction (principal); I10 Essential (primary) hypertension; E78.5 Hyperlipidemia, unspecified; E03.9 Hypothyroidism, unspecified; F17.290 Nicotine dependence, other tobacco product, uncomplicated; Z86.73 Personal history of transient ischemic attack (TIA), and cerebral infarction without residual deficits; Z79.01 Long term (current) use of anticoagulants; Z79.82 Long term (current) use of aspirin; Z79.890 Hormone replacement therapy; K80.20 Calculus of gallbladder without cholecystitis without obstruction; E78.2 Mixed hyperlipidemia; I63.9 Cerebral infarction, unspecified
CPT/HCPCS: 47562; 36415; 71045; 74177; 76705; 80053; 83690; 83735; 83880; 84484; 85007; 85025; 85610; 85730; 93005; 93306; 99285; J3490; G0378; J1100; J1885; J2250; J2405; J2543; J3010; J7120; Q9967

== ENCOUNTER 2025-06-17 10:12 | Day surgery (SDC) | payer MEDICARE, BC, SELFPAY ==
[2025-06-14 12:01] VITALS: BMI 25.5
--- NOTE | 2025-06-17 06:20 | EXP.GEN.HP ---
HPI HPI HPI: Patient is an 84-year-old male from [place], [place] whom I had performed laparoscopic cholecystectomy on 11/22/2024 as an inpatient for acute cholecystitis. He has a history of hypertension, hyperlipidemia, prior CVA with no residual deficits. He did very well after surgery. Patient states that he has had a change in his bowel habits since several weeks after he underwent cholecystectomy. No medication or dietary changes. He states that Dr. Duran felt he needed a colonoscopy. Patient's never had colonoscopy. Interestingly over the past couple weeks his bowels have normalized. [facility] Disclaimer: The information contained in this section may have been updated after the patient was seen, as this information can be updated by other users. Medical History (Updated 06/17/25 @ 10:38 by Josef Griffin MD) Constipation Remote history of stroke Cholecystitis CVA (cerebral vascular accident) Hyperlipidemia Hypertension Surgical History History of laparoscopic cholecystectomy Family History Other Hypertension Stroke Social History (Updated 06/14/25 @ 11:57 by Ayse Grewal RN) Smoking Status: Current every day smoker tobacco type: pipe second hand exposure: Yes alcohol intake: current alcohol intake frequency: a few times a week substance use type: denies use current occupational status: employed and retired Travel in the last 8 weeks?: None household members: spouse housing: house current occupation: [employer] current occupational exposures/hazards: No caffeine: Yes Have you lived/traveled outside US in past 30 days?: No Contact w/someone who lives/traveled outside US past 30 days?: No Exposure to someone with infectious disease in past 14 days?: No Do you have a fever (greater than 100.4 F or 38 C)?: No Have you tested positive for COVID-19?: No Exposed to someone with COVID-19 in past 14 days?: No Do you have a sore throat?: No Do you have a cough?: No Do you have any weakness?: No Are you experiencing any nausea/vomitting?: No Do you have any diarrhea?: No Are you experiencing any unusual bleeding?: No Do you have any muscle aches/pain?: No Do you have any abdominal pain?: No Are you experiencing loss of taste or smell?: No Other Medical History Have you received the Flu Vaccine for this season: No Have you received the Pneumonia Vaccine: No Meds Home Medications and Allergies Home Medications ?Medication ?Instructions ?Recorded ?Confirmed ?Type amlodipine 5 mg tablet 5 mg PO BID 09/07/19 06/14/25 History ascorbic acid (vitamin C) 1,000 mg 1,000 mg PO DAILY 09/07/19 06/14/25 History tablet aspirin 325 mg tablet 325 mg PO DAILY 09/07/19 06/14/25 History cyanocobalamin (vitamin B-12) 2,500 mcg PO DAILY 09/07/19 06/14/25 History 2,500 mcg tablet lisinopril 10 mg tablet 10 mg PO BID 09/07/19 06/17/25 History xolfeuyk-ujr-uaigd acid 0.4 1 each PO DAILY 09/07/19 06/14/25 History mg-lycopene 300 mcg-lutein 250 mcg tablet omega-3 fatty acids 300 mg capsule 1,000 mg PO DAILY 09/07/19 06/14/25 History simvastatin 10 mg tablet 10 mg PO DAILY 09/07/19 06/14/25 History alfuzosin 10 mg tablet,extended 10 mg PO BID 11/21/24 06/17/25 History release 24 hr (Uroxatral) levothyroxine 88 mcg tablet 88 mcg PO DAILY 11/22/24 06/17/25 History sodium,potassium,mag sulfates 17.5 See Rx Instructions PO .COMPLEX 05/31/25 Rx gram-3.13 gram-1.6 gram oral soln #354 mL (Suprep Bowel Prep Kit) New Prescriptions to Start Prescriptions: Allergies Allergy/AdvReac Type Severity Reaction Status Date / Time No Known Allergies Allergy Verified 06/17/25 10:34 Exam Data for Last 24 hours I & O for Last 24 hours: Intake & Output 06/14/25 06/15/25 06/16/25 06/17/25 11:59 11:59 11:59 11:59 Weight 183 lb Constitutional Constitutional: no acute distress *Routine HEENT Exam Head: Present normocephalic Eye: Present EOMI and PERRL ENT: Present mucous membranes moist *Routine Neck Exam Neck: Present supple; Absent lymphadenopathy *Routine Respiratory Exam Respiratory: Present CTA bilaterally *Routine Cardiovascular Exam Cardiovascular: Present RRR *Routine Abdominal Exam Abdominal: Present soft and normoactive bowel sounds; Absent tenderness *Routine Rectal Exam Rectal:: deferred *Routine Genitalia Exam Genitalia:: deferred *Routine Extremities Exam Extremities: Absent cyanosis, clubbing or edema *Routine Skin Exam Skin: Present warm; Absent rash *Routine Neurological Exam Neurological: Present alert and oriented X3 Assessment and Plan *Assessment and plan (1) Constipation: Status: Acute Category: Medical Code(s): K59.00 - Constipation, unspecified Plan Colonoscopy
[2025-06-17 10:21] VITALS: BP 144/69; PULSE 89; RESP 18; TEMP 36.2; O2SAT 97; BMI 25.5
[2025-06-17] MEDS: LACTATED RINGERS 1000ML 1,000 ML 50 ML IV (10:39)
--- NOTE | 2025-06-17 10:41 | EXP.ANES.CKL ---
[facility] Disclaimer: The information contained in this section may have been updated after the patient was seen, as this information can be updated by other users. Medical History (Updated 06/17/25 @ 10:38 by Josef Griffin MD) Constipation Remote history of stroke Cholecystitis CVA (cerebral vascular accident) Hyperlipidemia Hypertension Surgical History History of laparoscopic cholecystectomy Family History Other Hypertension Stroke Social History Smoking Status: Current every day smoker tobacco type: pipe second hand exposure: Yes alcohol intake: current alcohol intake frequency: a few times a week substance use type: denies use current occupational status: employed and retired Travel in the last 8 weeks?: None household members: spouse housing: house current occupation: [employer] current occupational exposures/hazards: No caffeine: Yes Have you lived/traveled outside US in past 30 days?: No Contact w/someone who lives/traveled outside US past 30 days?: No Exposure to someone with infectious disease in past 14 days?: No Do you have a fever (greater than 100.4 F or 38 C)?: No Have you tested positive for COVID-19?: No Exposed to someone with COVID-19 in past 14 days?: No Do you have a sore throat?: No Do you have a cough?: No Do you have any weakness?: No Are you experiencing any nausea/vomitting?: No Do you have any diarrhea?: No Are you experiencing any unusual bleeding?: No Do you have any muscle aches/pain?: No Do you have any abdominal pain?: No Are you experiencing loss of taste or smell?: No [facility] Anesthesia Checklist Patient Identification Patient Identification: Arm Band and Verbal (Name & ) Structural Data Admitted From: Home Planned Operative Procedure/s: colonoscopy Consent for Planned Operative Procedure(s) Verified: Yes Verified Documents: Surgical Consent NPO Status Verified Time NPO: 00:00 Chart Verification Results Verified: None Additional verifications Anesthesia Reactions: No Airway Assessment Mallampati Score:: Class II C-Spine Mobility Assessed: Yes TMJ Mobility Assessed: Yes Dentition: Poor Dentition (Multiple missing teeth, none loose) Neurological Assessment Level of Consciousness: Awake, Alert and Appropriate Hx Seizures: No Numbness or tingling in extremities: No Anesthesia Plan Anesthesia Risk discussed: Yes Anesthesia Plan: Verified ASA Class: II Anesthesia Type: MAC
[2025-06-17 11:24] VITALS: BP 111/55; PULSE 61; RESP 15; TEMP 36.2; O2SAT 100
--- NOTE | 2025-06-17 11:24 | HMH.SCOPE ---
Procedure: Date: 06/17/25 Patient Date of :: 1940 Procedure Performed:: Total colonoscopy to cecum with polypectomy using snare and biopsy forceps . Indications:: Patient is an 84-year-old male from [place], [place] whom I had performed laparoscopic cholecystectomy on 11/22/2024 as an inpatient for acute cholecystitis. He has a history of hypertension, hyperlipidemia, prior CVA with no residual deficits. He did very well after surgery. Patient states that he has had a change in his bowel habits since several weeks after he underwent cholecystectomy. No medication or dietary changes. He states that Dr. Duran felt he needed a colonoscopy. Patient's never had colonoscopy. Interestingly over the past couple weeks his bowels have normalized. . Performing Provider:: Josef Griffin MD Referring Provider:: Eligio Druan MD . Sedation:: MAC sedation . Procedure:: Patient history was obtained and appropriate physical examination was performed. Patient's medications and allergies were reviewed. Informed consent was obtained after explaining the benefits, alternatives, and risks of the procedure including, but not limited to, bleeding, perforation, missed lesions, and adverse reaction to anesthesia medications. Patient was transported to endoscopy procedure room. Patient was connected to monitoring devices. Throughout the procedure the patient's blood pressure, pulse, and oxygen saturations were monitored continuously. Patient identification and planned procedure were verified by the staff. Patient was positioned in lateral decubitus position. Digital anorectal exam was performed. Variable stiffness Olympus colonoscope was inserted and advanced under direct visualization to the cecum. Adequacy of the colonic preparation was noted. The colonoscope was advanced to the cecum. The colonoscope was then slowly withdrawn while carefully examining the color, texture, anatomy, and integrity of the mucosoa circumferentially. Within the rectum retroflexion was performed. Colonoscope was then withdrawn. Impression: There was some notable redundancy of the sigmoid colon which required abdominal pressure for advancement of the colonoscope. There was a large amount of gaseous liquid filling the colon. Very high volume trans colonoscopic irrigation and suctioning allowed for good visualization however. In the ascending colon distal to the ileocecal valve there were a couple of diminutive polyps adjacent to 1 another. 1 was removed with cold snare and one with biopsy forceps. There was some sigmoid diverticulosis. . Findings:: Gaseous liquid throughout the colon Ascending colon diminutive polyp x 2 Sigmoid diverticulosis Recommendations:: No mechanical etiology for his constipation. Likely functional/medical. Repeat colonoscopy pending patient's symptomatology, health status, and pathology. Complications:: None immediately apparent Estimated blood obtained (mL): 1 Colonoscopy Component Colonoscopy Component Was a colonoscopy performed during today's procedure?: Yes Recommended follow up colonoscopy of at least 10 years?: Yes
[2025-06-17 11:34] VITALS: BP 128/63; PULSE 58; RESP 15; TEMP 36.2; O2SAT 100
[2025-06-17 11:44] VITALS: BP 140/72; PULSE 62; RESP 16; TEMP 36.2; O2SAT 100
[2025-06-17 11:54] VITALS: BP 134/77; PULSE 67; RESP 18; TEMP 36.2; O2SAT 99
== END 2025-06-17 12:00 | disposition home or self-care (01) ==
PROVIDERS: PCP Family Medicine; Visit Provider Surgery
PROC: 0DJD8ZZ Inspection of Lower Intestinal Tract, Via Natural or Artificial Opening Endoscopic (ICD-10-PCS; principal; 2025-06-17 10:30)
DX: K63.5 Polyp of colon (principal); K57.30 Diverticulosis of large intestine without perforation or abscess without bleeding; K59.00 Constipation, unspecified; I10 Essential (primary) hypertension; E78.5 Hyperlipidemia, unspecified; F17.290 Nicotine dependence, other tobacco product, uncomplicated; Z86.73 Personal history of transient ischemic attack (TIA), and cerebral infarction without residual deficits; Z90.49 Acquired absence of other specified parts of digestive tract; Z79.899 Other long term (current) drug therapy
CPT/HCPCS: 45380; 45385; 88305; J2003; J2704; J7120

== ENCOUNTER 2025-10-08 09:11 | Inpatient (IN) | payer MEDICARE, BC, SELFPAY ==
[2025-10-08] VITALS (17 sets, daily range): BP systolic 138–188; BP diastolic 60–78; PULSE 67–97; RESP 16–30; TEMP 36.7–38.4; O2SAT 88–96; BMI 25.8
--- OUTSIDE RECORDS SUMMARY | 2025-10-08 09:20 | XMS_ITS | Continuity of Care Document ---
[facility] Organization [facility] Address [address] [place] [id number] Assessment No assessment recorded. Plan of Treatment Reminders Order Date Submit Date Provider Last Modified By Organization Details Last Modified Time Details Appointments None recorded. Lab rapid flu (A+B) 2024 025 [facility], [address] [place] [address], [phone], 14:29:10 rapid SARS CoV + SARS CoV 2 Ag, QL IA, respiratory specimen 2024 [facility], [address] [place] [address], [phone], 14:29:10 Referral None recorded. Procedures None recorded. Surgeries None recorded. Imaging None recorded. Medication Orders benzonatate 100 mg capsule 2024 025 [facility], [address] [place], [address], 14:29:11 dexamethaso ne sodium phosphate 4 mg/mL injection solution 2024 025 [facility] Not available 14:41:41 Patient TargetsNo targets recorded. Patient InstructionsNo instructions recorded. Reason for Referral None Reported. Results Created Date Observation Date Name Description Value Unit Range Abnormal Flag Note LastModifiedBy Organization Detail LastModifiedTime 10/06/20 25 10/06/2025 rapid flu (A+B) Flu negati ve Not Available [address], [address], 10/06/2025 13:21:03 10/06/20 25 10/06/2025 rapid flu (A+B) Type Both A & B Not Available [address], [address], 10/06/2025 13:21:03 10/06/20 25 10/06/2025 rapid SARS CoV + SARS CoV 2 Ag, QL IA, respi rator y speci men SARS CoV antigen Negati ve Not Available [address], [address], 10/06/2025 13:21:23 Result Notes None recorded. 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 Procedures Surgical History Date Name Laterality Status Provider Name and Address Organization Details Recorded Time Hydrocele Repair completed Polina Stears [place] - [facility] 08/05/2022 09:59:45 Imaging Results None recorded. Procedure Notes None recorded. Medical Equipment None Reported. Allergies No known drug allergies Medications Name Sig Start Date Stop Date Status Note LastModified by Organization Details LastModified Time amoxicillin 500 mg capsule TAKE ONE (1) CAPSULE TWICE A DAY BY ORAL ROUTE FOR 10 DAYS. 10/04 completed Not Available Not Available Not Available doxycycline hyclate 100 mg capsule Take 1 capsule twice a day by oral route for 7 days. 03/18 completed Not Available Not Available Not Available atorvastati n 10 mg tablet 08/05 completed Not Available Not Available Not Available azithromyci n 250 mg tablet TAKE 2 TABLETS (500 MG) BY ORAL ROUTE ONCE DAILY FOR 1 DAY THEN 1 TABLET (250 MG) BY ORAL ROUTE ONCE DAILY FOR 4 DAYS 09/16 completed Not Available Not Available Not Available aspirin 325 mg tablet Take 1 tablet every day by oral route. active Not Available Not Available No t Available simvastatin 10 mg tablet TAKE 1 TABLET BY MOUTH NIGHTLY AT BEDTIME active Not Available Not Available No t Available amlodipine 5 mg tablet TAKE 1 TABLET BY MOUTH TWICE DAILY active Not Available Not Available No t Available levothyroxi ne 88 mcg tablet TAKE 1 TABLET BY MOUTH EVERY DAY active Not Available Not Available No t Available ceftriaxone 1 gram solution for injection Take 1 g by injection route. 10/04 completed Not Available Not Available Not Available Vitamin C 1,000 mg tablet Take 1 tablet every day by oral route. active Not Available Not Available No t Available tamsulosin 0.4 mg capsule 1 tablet once daily 10/04 completed Not Available Not Available Not Available benzonatate 100 mg capsule Take 1 capsule twice a day by oral route for 5 days. 2024 active Not Available Not Available Not Avai lable levothyroxi ne 125 mcg tablet TAKE 1 TABLET BY MOUTH DAILY 08/05 completed Not Available Not Available Not Available lisinopril 10 mg tablet Take 1 tablet every day by oral route for 90 days. active Not Available Not Available No t Available dexamethaso ne sodium phosphate 4 mg/mL injection solution 4mg IM Once 2024 active Not Available Not Available Not Avai lable polyethylen e glycol 3350 17 gram/dose oral powder DISSOLVE 17 GRAMS OF POWDER INTO 4 TO 8 OUNCES OF WATER, JUICE, SODA, COFFEE, OR TEA THEN DRINK ONCE daily active Not Available Not Available No t Available levofloxaci n 500 mg tablet TAKE 1 TABLET BY MOUTH EVERY DAY FOR 10 DAYS 03/17 completed Not Available Not Available Not Available fluticasone propionate 50 mcg/actuati on nasal spray,suspe nsion SPRAY ONE (1) SPRAY EVERY DAY BY INTRANASA L ROUTE. active Not Available Not Available No t Available amoxicillin 875 mg-potassiu m clavulanate 125 mg tablet 08/05 completed Not Available Not Available Not Available amoxicillin 500 mg-potassiu m clavulanate 125 mg tablet TAKE ONE TABLET BY MOUTH THREE TIMES DAILY FOR FOUR DAYS -- FINISH ALL MEDICINE -- 03/18 completed Not Available Not Available Not Available alfuzosin ER 10 mg tablet,exte nded release 24 hr Take 1 tablet every day by oral route. active Not Available Not Available No t Available Centrum Silver 1 tablet daily active Not Available Not Available No t Available Fish Oil 1,000 mg (120 mg-180 mg) capsule Take 1 capsule every day by oral route. active Not Available Not Available No t Available vitamin B12 2,500 mcg-folic acid 400 mcg disintegrat ing tablet Take 1 tablet every day by oral route. active Not Available Not Available No t Available Vitals Date Recorded Body height Body mass index (BMI) Body weight Body temperature Heart rate Oxygen saturation Respiratory rate Pain severity - 0-10 verbal numeric rating [Score] - Reported Systolic And Diastolic Provider Name and Address Organization Details Last Updated DateTime 5 177.8 cm 27.6 kg/m2 28544.8 4 g 98.5 [degF] 88 /min 96 % 18 /min 0 110/58 mm[Hg] Mariluz Saucedo [place] - [facility] 5 13:21:54 Social History Question Answer Notes LastModified by Organizat ion Details LastModified Time Tobacco Smoking Status Current Every Day Smoker Polina myers, [place] - [facility] 08/05/2022 09:58:43 Do You Have An Advance Directive? No Information not available 08/05/2022 Are You Blind Or Do You Have Difficulty Seeing? No Information not available 08/05/2022 What Is Your Level Of Caffeine Consumption? Heavy Information not available 08/05/2022 Are You Deaf Or Do You Have Serious Difficulty Hearing? No Information not available 08/05/2022 What Type Of Diet Are You Following? REGULAR Information not available 08/05/2022 What Is The Highest Grade Or Level Of School You Have Completed Or The Highest Degree You Have Received? [id number] Information not available 08/05/2022 Have There Been Any Changes To Your Family Or Social Situation? No Information not available 08/05/2022 What Is The Fluoride Status Of Your Home? Fluoridated Information not available 08/05/2022 Do You Have A Medical Power Of Stack Supervisor? No Information not available 08/05/2022 What Was The Date Of Your Most Recent Tobacco Screening? 03/18/2025 Information not available 03/18/2025 What Is Your Current Pack Years? 30ormorepackye ars Information not available 02/10/2024 What Is Your Relationship Status? Information not available 08/05/2022 Do You Have Smoke And Carbon Monoxide Detectors In Your Home? Yes Information not available 08/05/2022 At What Age Did You Start Smoking Tobacco? 16 Information not available 02/10/2024 Are You Passively Exposed To Smoke? Yes Information not available 08/05/2022 How Much Tobacco Do You Smoke? 1 PPD Pipe Tobacco Information not available 08/05/2022 Has Tobacco Cessation Counseling Been Provided? Yes Information not available 03/17/2023 On What Date Was Tobacco Cessation Counseling Provided? 03/18/2025 Information not available 03/18/2025 How Many Years Have You Smoked Tobacco? 67 Since Age 16 Information not available 02/10/2024 Do You Have Difficulty Walking Or Climbing Stairs? No Information not available 08/05/2022 Sex: Male Functional Status Question Answer Note LastModified by Organizat ion Details LastModified Time Do you or have you ever used smokeless tobacco? pipe tobacco Information not available 08/05/2022 Are you currently employed? Yes Information not available 08/05/2022 Do you have transportation difficulties? No Information not available 08/05/2022 Are you able to care for yourself independently? Yes Information not available 08/05/2022 Do you have difficulty dressing, bathing, grooming, or toileting? No Information not available 08/05/2022 Do you or have you ever used e-cigarettes or vape? Never used electronic cigarettes Information not available 08/05/2022 What is your exercise level? None Information not available 08/05/2022 Do you use any illicit or recreational drugs? No Information not available 08/05/2022 Do you or have you ever used any other forms of tobacco or nicotine? Yes Information not available 08/05/2022 What is your level of alcohol consumption? Occasional Information not available 08/05/2022 Are you able to walk independently without assistance or assistive devices? YESWOREST Information not available 08/05/2022 Do you have difficulty doing errands alone? 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 [id number] Information not available 08/05/2022 Do you have difficulty concentrating, remembering or making decisions? No Information no t available 08/05/2022 Family History Relationship Description Onset Age of this Age Resolved Age Notes LastModified by Organization Details LastModified Time Father No current problems or disability bstears Not available 08/05 09:57:13 Mother No current problems or disability bstears Not available 08/05 09:57:13 Medical History No medical history recorded. Immunizations Vaccine Type Date Status Note Provider Nam e and Address Organization Details Recorded Time COVID-19, mRNA, LNP-S, PF, 100 mcg/0.5mL dose or 50 mcg/0.25mL dose 11/21/2020 completed Mariluz Saucedo null, [place] - [facility] 03/17/2023 15:25:30 COVID-19, mRNA, LNP-S, PF, 100 mcg/0.5mL dose or 50 mcg/0.25mL dose 09/27/2021 completed Mariluz Saucedo null, [place] - [facility] 03/17/2023 15:25:30 COVID-19, mRNA, LNP-S, PF, 100 mcg/0.5mL dose or 50 mcg/0.25mL dose 10/24/2020 completed FERMIN Robledo - [facility] 03/17/2023 15:25:30 Hep A, adult 10/14/2018 completed FERMIN Robledo - [facility] 03/17/2023 15:25:30 Past Encounters Encounter ID Performer Location Encounter Start Date Encounter Closed Date Diagnosis/Indication Diagnosis SNOMED-CT Code Diagnosis ICD10 Code Diagnosis IMO Codes Diagnosis Note [id number] Russell Buckley APRN [address] [address] 10/06/2025 12:54:49 10/06/2025 14:34:25 Viral upper respiratory tract infection 575930580 J06.9 6103819 monitor temp. Tylenol or Motrin as needed for pain or fever.enco urage fluids, water, Gatorade, power aide, Pedialyte if /tod dler/child warm salt water gargleswar m fluidssore throat lozengessl eep elevatedhu midifier/v aporizerfo llow up immediatel y for new or worsening symptoms or no noticeable improvemen t over the next 48-72 hours Acute cough 9399086130 98027204 R05.6 [id number] Health Concerns Section Related Observation LastModified by Organization Detai ls LastModified Time None Recorded Concern Status LastModified by Organization Details LastModified Time None Recorded Payers Encounter Date Sequence Insurance Name Policy Number Policy Stokes Covered Member ID Stokes Member ID Guarantor Name 10/06/2025 2 [place] [id number] [place] [id number] [place] [place] 10/06/2025 1 MEDIC[place] (MED[place] Momo T [place] [id number] [employer] [place] Notes Date Note Type Note Provider Name and Address Organization Details Recorded Time 10/06/2025 text/html ROS as noted in the HPI 85 yr old presents for cough, congestion, fever since yesterday morning. Russell Buckley APRN [address], [place], [address], [place] - [facility] 10/06/2025 14:29:35
--- OUTSIDE RECORDS SUMMARY | 2025-10-08 09:20 | XMS_ITS | Clinical Summary ---
[facility] Address [address] [place] [address] Care Team Providers Care Route Service Manager Name Role Phone Jorje Duran MD Primary Care Provider Allergies No known active allergies Medications levothyroxine (SYNTHROID, LEVOTHROID) 88 MCG tablet Take 88 mcg by mouth Every Morning. Active tamsulosin (FLOMAX) 0.4 MG capsule 24 hr capsule Take 1 capsule by mouth Daily. Active lisinopril (PRINIVIL,ZESTR IL) 10 MG tablet Take 10 mg by mouth 2 (Two) Times a Day. Active aspirin 325 MG tablet Take 325 mg by mouth Daily. Active [place]-3 Fatty Acids (fish oil) 1000 MG capsule capsule Take 1,000 mg by mouth Daily With Breakfast. Active vitamin B-12 (CYANOCOBALAMIN ) 500 MCG tablet Take 500 mcg by mouth Daily. Active cetirizine (zyrTEC) 5 MG tablet Take 5 mg by mouth Daily. Active multivitamin with minerals (MULTIVITAMIN ADULT PO) Take 1 tablet by mouth Daily. Active amLODIPine (NORVASC) 5 MG tablet Take 1 tablet by mouth Daily. 11/01/2021 Active amoxicillin-cla vulanate (Augmentin) 875-125 MG per tablet Take 1 tablet by mouth 2 (Two) Times a Day. 8 tablet 11/01/2021 Active atorvastatin (LIPITOR) 10 MG tablet Take 1 tablet by mouth Every Night. 30 tablet 11/01/2021 Active Active Problems Problem Noted Date Diagnosed Date Community acquired pneumonia of left lower lobe of lung 11/01/2021 Sepsis, unspecified organism 10/30/2021 Sepsis 10/30/2021 AMS (altered mental status) 10/30/2021 HTN (hypertension) 10/30/2021 HLD (hyperlipidemia) 10/30/2021 Social History Tobacco Use Types Packs/Day Years Used Date Smoking Tobacco: Light Smoker Cigarettes Pipe Smokeless Tobacco: Never Alcohol Use Standard Drinks/Week Comments Yes 0 (1 standard drink = 0.6 oz pur e alcohol) WINE once a month Abuse Screen Answer Date Recorded Unsafe at Home or Work/School Not on file Feels Threatened by Someone? Not on file 06/2023 Does Anyone Keep You from Co ntacting Others or Doint Things Outside the Home? Not on file 08/04/2023 Physical Sign of Abuse Present Not on file 1 Housing Stability Answer Date Recorded Current Living Arrangements Not on file 06/2023 Potentially Unsafe Housing Conditions Not on james e 08/04/2023 Family and Community Support Answer Derek e Recorded Help with Day-to-Day Activities Not on file 08/04/2023 Lonely or Isolated Not on file 08/04/2023 Employment Answer Date Recorded Do you want help finding or keeping work or a laz b? Not on file 08/04/2023 Disabilities Answer Date Recorded Concentrating, Remembering, or Making Decisions Difficulty Not on file 08/04/2023 Doing Errands Independently Difficulty Not on fi le 08/04/2023 Education Answer Date Recorded Help with school or training? Not on file Preferred Language Not on file 08/04/2023 Sex and Gender Information Value Date Recorded Sex Assigned at Not on file Legal Sex Male 1:15 PM EDT Gender Identity Not on file Sexual Orientation Not on file Last Filed Vital Signs Vital Sign Reading Time Taken Comments Blood Pressure 127/70 11/01/2021 7:28 AM EST Pulse 100 11/01/2021 9:00 AM EST Temperature 36.7 C (98 F) 11/01/2021 7:28 AM EST Respiratory Rate 18 11/01/2021 7:28 AM EST Oxygen Saturation 95% 11/01/2021 7:28 AM EST Inhaled Oxygen Concentration - - Weight 80.7 kg (178 lb) 10/31/2021 3:42 PM EST Height 180.3 cm (5' 11 ) 10/31/2021 3:42 PM EST Body Mass Index 24.83 10/31/2021 3:42 PM EST Plan of Treatment Health Maintenance Due Date Last Done Comments ANNUAL PHYSICAL 1942 TDAP/TD VACCINES (1 - Tdap) 1961 Pneumococcal Vaccine 50+ (1 of 1 - PCV) 1992 ZOSTER VACCINE (1 of 2) 1992 RSV Vaccine - Adults (1 - 1-dose 75+ series) 7 LIPID PANEL 10/31/2022 10/31/2021 INFLUENZA VACCINE 05/27/2025 COVID-19 Vaccine ( - season) 2025 Procedures Procedure Name Priority Date/Time Associated Diagnosis Comments LIPID PANEL Routine 10/31/2021 8:02 AM EST from Last 3 Months or Most Recently Relevant to Health Maintenance Results * Lipid Panel (10/31/2021 8:02 AM EST) Total Cholesterol 97 0 - 200 mg/dL 10/31/2021 9:20 AM EST [facility] Triglycerides 41 0 - 150 mg/dL 10/31/2021 9:20 AM EST [facility] HDL Cholesterol 46 40 - 60 mg/dL 10/31/2021 9:20 AM EST [facility] LDL Cholesterol 40 0 - 100 mg/dL 10/31/2021 9:20 AM EST [facility] VLDL Cholesterol 11 5 - 40 mg/dL 10/31/2021 9:20 AM EST [facility] LDL/HDL Ratio 0.93 10/31/2021 9:20 AM EST [facility] Blood Venipuncture / Unknown 10/31/2021 8:02 AM EST 10/31/2021 8:38 AM EST [facility] - 10/31/2021 9:20 AM EST Cholesterol Reference Ranges (U.S. Department of Health and Human Services ATP III Classifications) Desirable <200 mg/dL Borderline High 200-239 mg/dL High Risk >240 mg/dL Triglyceride Reference Ranges (U.S. Department of Health and Human Services ATP III Classifications) Normal <150 mg/dL Borderline High 150-199 mg/dL High 200-499 mg/dL Very High >500 mg/dL HDL Reference Ranges (U.S. Department of Health and Human Services ATP III Classifcations) Low <40 mg/dl (major risk factor for CHD) High >60 mg/dl ('negative' risk factor for CHD) LDL Reference Ranges (U.S. Department of Health and Human Services ATP III Classifcations) Optimal <100 mg/dL Near Optimal 100-129 mg/dL Borderline High 130-159 mg/dL High 160-189 mg/dL Very High >189 mg/dL us Nicole Henry APRN LAB BLOOD ORDERABLES Final Result [facility]
[address] [place] [address], from Last 3 Months or Most Recently Relevant to Health Maintenance Insurance MEDICARE A & B Member Subscriber Plan / Payer (Ef fective 2007-Present) Name:Momo Wu Member ID:[id number] Relation to Subscriber:Self Name:Momo Wu Subscriber ID:[id number] Payer ID:[id number] Group ID:Not on file Type:Not on file Address: [address] Advance Directives * CPR (Attempt to Resuscitate) (Latest Code Status on File) Date Activated Date Inactivated Comments 10/30/2021 6:55 PM 11/01/2021 2:34 PM Question Answer Comments Code Status (Patient has no pulse and is not breathing): CPR (Attempt to Resuscitate) Medical Interventions (Patie nt has pulse or is breathing): Full Support Comments: glenroy Jordan Level Of Support Discussed With: PatientNext of Kin (If No Surrogate) Care Teams Route Service Manager Relationship Specialty Start Date End Date Jorje Duran MD [address] [place] [address] PCP - General Family Medicine 10/30/21
--- OUTSIDE RECORDS SUMMARY | 2025-10-08 09:20 | XMS_ITS ---
Author Organization Unknown ENCOUNTERS Encounter Performer Location Date Diagnosis Diagnosis Status Pre Admit [facility] [address] [place] [address] [id number] Emergency [facility] [address] [place] [address] [id number] Outpatient [facility] [address] [place] [address] [id number] ANALI Pre Admit [facility] [address] [place] [address] [id number] Emergency [facility] [address] [place] [address] [id number] A *Note: Encounters from your own facility or health system may be excluded. Allergies, Adverse Reactions, Alerts Allergen Type Severity Identification Date Medications Name Date Quantity Days Supplied GPI Number
--- OUTSIDE RECORDS SUMMARY | 2025-10-08 09:21 | XMS_ITS | Data Portability ---
Author Organization [facility] Address [address] [place] [address] Assessment No assessment recorded. Plan of Treatment Reminders Order Date Submit Date Provider Last Modified By Organization Details Last Modified Time Details Appointments None recorded. Lab rapid flu (A+B) 2024 025 [facility], [address] [place] [address], [id number], 5 14:29:10 rapid SARS CoV + SARS CoV 2 Ag, QL IA, respiratory specimen 2024 025 [facility], [address] [place] [address], [id number], 5 14:29:10 rapid flu (A+B) 2023 024 [facility], [address] [place] [address], [id number], 4 10:28:39 rapid SARS CoV + SARS CoV 2 Ag, QL IA, respiratory specimen 2023 024 [facility], [address] [place] [address], [phone], 4 10:28:39 Referral None recorded. Procedures None recorded. Surgeries None recorded. Imaging None recorded. Medication Orders benzonatate 100 mg capsule 2024 025 [facility], [address] [place] [address], [place], [address], 5 14:29:11 dexamethaso ne sodium phosphate 4 mg/mL injection solution 2024 025 [email or web address] Not available 5 14:41:41 dexamethaso ne sodium phosphate 4 mg/mL injection solution 2024 025 cbuckler Not available 5 13:10:24 doxycycline hyclate 100 mg capsule 2023 025 [facility] [id number], [address] [place] [address], [address], 5 15:54:45 dexamethaso ne sodium phosphate 4 mg/mL injection solution 2023 024 cbuckler Not available 5 13:10:24 ceftriaxone 1 gram solution for injection 2023 024 bstears Not available 4 09:39:51 amoxicillin 500 mg capsule 2023 024 [facility], [address] [place] [address], [place], [address], 4 10:35:37 Flonase Allergy Relief 50 mcg/actuati on nasal spray,suspe nsion 2023 024 [facility], [address] [place] [address], [place], [address], 4 15:58:51 dexamethaso ne sodium phosphate 4 mg/mL injection solution 2022 023 cbuckler Not available 5 13:10:24 ceftriaxone 1 gram solution for injection 2022 023 bstears Not available 4 09:39:51 doxycycline hyclate 100 mg capsule 2022 [facility]23 [id number], [address] [place] [address], [address], 15:54:43 Patient TargetsNo targets recorded. Patient InstructionsNo instructions recorded. Reason for Referral None Reported. Results Created Date Observation Date Name Description Value Unit Range Abnormal Flag Note LastModifiedBy Organization Detail LastModifiedTime 10/04/20 24 10/04/2024 rapid SARS CoV + SARS CoV 2 Ag, QL IA, respi rator y speci men SARS CoV antigen Negati ve Not Available [address], [address], 10/04/2024 10:00:01 10/04/20 24 10/04/2024 rapid flu (A+B) Flu negati ve Not Available [address], [address], 10/04/2024 09:59:48 10/04/20 24 10/04/2024 rapid flu (A+B) Type Both A & B Not Available [address], [address], 10/04/2024 09:59:48 10/06/20 25 10/06/2025 rapid flu (A+B) Flu negati ve Not Available [address], [address], 10/06/2025 13:21:03 10/06/20 25 10/06/2025 rapid flu (A+B) Type Both A & B Not Available [address], [address], 10/06/2025 13:21:03 10/06/20 25 10/06/2025 rapid SARS CoV + SARS CoV 2 Ag, QL IA, respi rator y speci men SARS CoV antigen Negati ve Not Available [facility] [address] [facility], [place], [address], 10/06/2025 13:21:23 Result Notes None recorded. Problems Name Problem SNOMED Code Status Onset Date Resolution Date Notes Provider Name and Address Organization Details Recorded Time Large prostate 238056968 Active 2021 Polina Stears null, [place] - [facility] 2 09:56:09 Hypothyroidism 50041680 Active 2021 Polina Stears [place], [place] - [facility] 2 09:56:27 Hypertensive disorder 79271716 Active 2021 Polina Stears null, [place] - [facility] 2 09:56:43 Hypercholester olemia 47938624 Active 2021 Polina Stears null, [place] - [...] t Available Vitals Date Recorded Body height Respiratory rate Body mass index (BMI) Body weight Body temperature Heart rate Oxygen saturation Systolic And Diastolic Provider Name and Address Organization Details Last Updated DateTime 4 177.8 cm 18 /min 27.8 kg/m2 52011.9 2 g 97.9 [degF] 68 /min 96 % 132/78 mm[Hg] Polina Stears [place] - [facility] 4 15:49:11 Date Recorded Body height Body mass index (BMI) Body weight Heart rate Oxygen saturation Respiratory rate Pain severity - 0-10 verbal numeric rating [Score] - Reported Systolic And Diastolic Provider Name and Address Organization Details Last Updated DateTime 5 177.8 cm 27 kg/m2 99644.0 7 g 75 /min 95 % 18 /min 0 138/80 mm[Hg] Mariluz Saucedo [facility] 5 15:58:39 Date Recorded Body height Body mass index (BMI) Body weight Body temperature Heart rate Oxygen saturation Respiratory rate Pain severity - 0-10 verbal numeric rating [Score] - Reported Systolic And Diastolic Provider Name and Address Organization Details Last Updated DateTime 3 177.8 cm 27.1 kg/m2 89147.9 6 g 97.4 [degF] 64 /min 96 % 18 /min 0 128/70 mm[Hg] Mariluz Saucedo [place] - [facility] 3 16:37:50 Date Recorded Body height Body mass index (BMI) Body weight Body temperature Respiratory rate Heart rate Oxygen saturation Systolic And Diastolic Provider Name and Address Organization Details Last Updated DateTime 4 177.8 cm 27.3 kg/m2 25489.5 5 g 97.8 [degF] 18 /min 82 /min 97 % 158/64 mm[Hg] Polina Stears [place] - [facility] 4 09:45:29 Date Recorded Body height Body mass index (BMI) Body weight Body temperature Heart rate Oxygen saturation Respiratory rate Pain severity - 0-10 verbal numeric rating [Score] - Reported Systolic And Diastolic Provider Name and Address Organization Details Last Updated DateTime 5 177.8 cm 27.6 kg/m2 83230.8 4 g 98.5 [degF] 88 /min 96 % 18 /min 0 110/58 mm[Hg] Mariluz Saucedo [place] - [facility] 13:21:54 Social History Question Answer Notes LastModified by Organizat ion Details LastModified Time Tobacco Smoking Status Current Every Day Smoker Polina [place], [place] - [facility] 08/05/2022 09:58:43 Do You [...] Or The Highest Degree You Have Received? [id number] Information not available 08/05/2022 Have There Been Any Changes To Your Family Or Social Situation? No Information not available 08/05/2022 What Is The Fluoride Status Of Your Home? Fluoridated Information not available 08/05/2022 Do You Have A Medical Power Of Agricultural Equipment Test Engineer? No Information not available 08/05/2022 What Was [...] Functional Status Question Answer Note LastModified by [employer] ion Details LastModified Time Do you or [...] anxious, or unable to sleep at night)? [id number] Information not available 08/05/2022 Do you have [...] dose or 50 mcg/0.25mL dose 10/24/2020 completed Mariluz Saucedo null, [place] - [facility] 03/17/2023 15:25:30 Hep A, adult 10/14/2018 completed Mariluz Saucedo [place], [place] - [facility] 03/17/2023 15:25:30 Past Encounters Encounter ID Performer Location Encounter Start Date Encounter Closed Date Diagnosis/Indication Diagnosis SNOMED-CT Code Diagnosis ICD10 Code Diagnosis IMO Codes Diagnosis Note [id number] Russell Buckley [address] [address] 06/17/2022 09:13:28 06/17/2022 10:27:27 Suspected COVID-19 941925432 Z20.822 covid test neg, if symptoms return to retest [id number] Russell Buckley [address] [address] 08/05/2022 09:39:03 08/05/2022 10:30:34 Acute maxillary sinusitis 45551918 J01.00 [id number] Russell Buckley [address] [address] 03/17/2023 15:15:54 03/17/2023 16:24:10 Body mass index 25-29 - overweight 451046419 Z68.27 Overweight 690886983 E66 .3 Acute maxi llary sinusitis 54960292 J01.00 [id number] [facility] [place] [address] 09/16/2023 16:23:12 09/16/2023 17:12:53 Acute maxillary sinusitis 29649296 J01.00 [id number] [place] [address] 02/10/2024 15:34:41 02/10/2024 16:04:09 Acute maxillary sinusitis 32863159 J01.00 Acute righ t otitis media 671232857 H66.91 [id number] [facility] [address] 10/04/2024 09:24:13 10/04/2024 10:38:24 Acute maxillary sinusitis 86862060 J01.00 if symptoms worsen [facility] [id number] [facility] [address] 03/18/2025 15:34:48 03/18/2025 16:11:43 Viral upper respiratory tract infection 038319457 J06.9 2379600 no sign of a bacterial infection. likely viral. viruses can take 7-14 days to run their course. nasal saline and bulb syringe to remove nasal drainage to help with congestion . monitor temp. Tylenol or Motrin as needed for pain or fever. encourage fluids, water, Gatorade, power aide, Pedialyte if infant/tod dler/child warm salt water gargles warm fluids sore throat lozenges sleep elevated humidifier /vaporizer follow up immediatel y for new or worsening symptoms or no noticeable improvemen t over the next 48-72 hours [id number] Russell Buckley[address] [place] [address] 10/06/2025 12:54:49 10/06/2025 14:34:25 Viral upper respiratory tract infection 552199093 J06.9 3726661 monitor temp. Tylenol or Motrin as needed for pain or fever.enco urage fluids, water, Gatorade, power aide, Pedialyte if /tod dler/child warm salt water gargleswar m fluidssore throat lozengessl eep elevatedhu midifier/v aporizerfo llow up immediatel y for new or worsening symptoms or no noticeable improvemen t over the next 48-72 hours Acute cough 1006613817 73907523 R05.8 [id number] Health Concerns Section Related Observation LastModified by Organization Detai ls LastModified Time None Recorded Concern Status LastModified by Organization Details LastModified Time None Recorded Advance Directives Directive N: Payers Insurance Date Sequence Insurance Name Policy Number Policy Stokes Covered Member ID Stokes Member ID Guarantor Name 10/05/2025 [employer] - [place] [facility] (MEDICARE) Momo Wu [id number] [place] 05/06/2025 SLIDING FEE SCHEDULE - DISCOUNT [place] 10/05/2025 2 [place] [id number] Momo Wu [id number] Momo Wu 10/06/2025 1 [place] Momo Wu [id number] Momo Bryce Notes Date Note Type Note Provider Name and Address Organization Details Recorded Time 09/16/2023 text/html 83 yr old male presents for congestion for over a week. He reports that he seen Dr. Duran last week and was given a steroid shot and a z pack. He reports improvement from the steroid shot but still congested. pt states drainage has turned a darker color and coughing up thick sputum Russell Buckley, [employer] [address], [place], [address], [place] - [facility] 09/16/2023 17:27:11 02/10/2024 text/html ROS as noted in the HPI 83 year old male who presents to the office today with concerns ofeyes watering from pressure behind eyes, forehead feels puffy, off balance yesterday, ears feel full, rt ear pain and sinus tenderness Russell Buckley APRN [address], [place], [address], [place] - [facility] 02/10/2024 16:00:52 10/04/2024 text/html ROS as noted in the HPI 84 year old male who presents to the office today with concerns ofcough, congestion, pressure in foreheadears feel puffy Russell Buckley APRN [address], [place], [address], [place] - [facility] 10/04/2024 10:31:19 03/18/2025 text/html 84 yr old male presents for sinus pressure/congestio n/clear nasal drainage for a week. does not want swabbed. Russell Buckley APRN [address], [place], [address], [place] - [facility] 03/18/2025 16:20:25 10/06/2025 text/html ROS as noted in the HPI 85 yr old presents for cough, congestion, fever since yesterday morning. Russell Buckley APRN [address], [place], [address], [place] - [facility] 10/06/2025 14:29:35
--- NOTE | 2025-10-08 09:22 | ECG_ITS ---
APPROVED REPORT Exam: Resting ECG HR:97 bpm ECG Measurements Heart Rate 97 AXES QRSd 80 QRS 62 QT 298 T 72 QTc 352 Conclusion ATRIAL FIBRILLATION ABNORMAL RHYTHM ECG UNCONFIRMED REPORT Electronically signed by : Norman Glasgow, 10/08/2025 15:56:00
[2025-10-08 09:36] LABS: Coronavirus 19, PCR Not Detected (NotDetected); Influenza B, PCR Not Detected (NotDetected)
--- NOTE | 2025-10-08 09:45 | PC.NURSE ---
pt was soiled when arrived to ED. pt was placed in gowned and cleaned. pts belonging were placed in belongings bag. belongings included pants and underwear.
[2025-10-08] MEDS: ACETAMINOPHEN 1,000MG/100ML VIAL 1000 MG IV (09:51)
[2025-10-08 09:59] LABS: Lactate Venous 1.4 mmol/L (0.4-2.0); VBG HCO3 21.1 mmol/L (23-30); VBG PCO2 33.5 mmol/L (35-51); VBG PH 7.42 mmol/L (7.31-7.41); VBG PO2 85.1 mmol/L (28-40)
--- NOTE | 2025-10-08 09:59 | XR_ITS ---
PROCEDURE INFORMATION: Exam: XR Chest Exam date and time: 10/08/2025 10:04 AM Age: 85 years old Clinical indication: Cough and shortness of breath; Additional info: Short of air TECHNIQUE: Imaging protocol: Radiologic exam of the chest. Views: 1 view. COMPARISON: CR XR CHEST PORTABLE 11/21/2024 10:15 AM FINDINGS: Lungs: Patchy opacities in both lungs worse in the lung bases and left upper lobe may represent atelectasis or infection. Pleural spaces: Unremarkable. No pleural effusion. No pneumothorax. Heart/Mediastinum: Unremarkable. No cardiomegaly. Bones/joints: Unremarkable. IMPRESSION: Patchy opacities in both lungs worse in the lung bases and left upper lobe may represent atelectasis or infection.
[2025-10-08 10:08] LABS: Microscopic, Urine URINE MICROSCOPIC (MICROSCOPIC)
[2025-10-08 10:09] LABS: Hematocrit 33.5 % (42.0-52.0); Hemoglobin 11.8 g/dL (14.1-18.0); Immature Granulocytes % 0.5 %; Influenza A, PCR Detected (NotDetected); Mean Corpuscular HGB Conc 35.2 g/dL (31.8-35.4); Mean Corpuscular Hemoglobin 32.2 pg (27.0-31.2); Mean Corpuscular Volume 91.5 fl (80-94); Nucleated Red Blood Cells % 0 %; Platelet Count 211 K/mm3 (142-424); Red Blood Count 3.66 M/mm3 (4.60-6.20); Red Cell Distribution Width-SD 44.3 fL; White Blood Count 15.0 K/mm3 (4.8-10.8)
[2025-10-08 10:15] LABS: Albumin Level 4.0 g/dl (3.5-5.0); Chloride 92 mmol/L (98-107); Sodium 123 mmol/L (136-145)
[2025-10-08 10:16] LABS: Potassium 4.3 mmoL/L (3.5-5.1)
[2025-10-08 10:18] LABS: Alanine Aminotransferase 31 U/L (12-78); Albumin/Globulin Ratio 1.4 (1.1-1.8); Alkaline Phosphatase 62 U/L (38-126); Anion Gap 13.3 mEq/L (5-15); Aspartate Amino Transferase 61 U/L (17-59); Bilirubin,Total 0.4 mg/dl (0.2-1.3); Blood Urea Nitrogen 20 mg/dl (9-20); Carbon Dioxide 22 mmol/L (22.0-30.0); Creatinine Clearance Estimated 54 mL/min (50-200); Creatinine,Serum 1.20 mg/dl (0.66-1.25); Estimated Glomerular Filt Rate 58 ml/min (>60); GFR (African American) 70 ML/MIN (>60); Globulin 2.9 g/dL (1.3-3.2); Total Protein,Serum 6.9 g/dl (6.3-8.2)
[2025-10-08 10:19] LABS: Calcium 8.6 mg/dl (8.4-10.2); Glucose 100 mg/dl (74-100)
[2025-10-08] MEDS: PIPERACILLIN/TAZO 4.5 GM in 0.9 % SODIUM CHLORIDE 100 ML IV (10:27)
[2025-10-08] MEDS: OSELTAMIVIR 75MG CAPSULE 75 MG PO (10:27)
[2025-10-08] MEDS: LACTATED RINGERS 1000ML 1,000 ML 999 ML IV (10:27)
[2025-10-08 10:28] LABS: NT Pro Brain Natriuretic Pep. 3150 pg/mL (0-450)
[2025-10-08 10:31] LABS: Troponin I 0.02 ng/ml (0.00-0.034)
[2025-10-08 10:37] LABS: Bilirubin,Urine Negative (Negative); Color,Urine YELLOW (Yellow); Glucose,Urine (UA) Negative (Negative); Ketones,Urine TRACE (Negative); Leukocyte Esterase,Urine Negative (Negative); PH,Urine 5.5 (5.0-8.5); Protein,Urine 1+ (Negative); Specific Gravity, Urine 1.010 (1.005-1.030); Urobilinogen,Urine 0.2 EU/dl (0.2)
[2025-10-08] MEDS: VANCOMYCIN/WATER FOR INJ (PEG) 1.5 GM/300 ML PIGGYBACK IV (10:54)
[2025-10-08] MEDS: LACTATED RINGERS 1000ML 2,190 ML 1095 ML IV (11:14)
--- NOTE | 2025-10-08 11:15 | HMH.EDGENADL ---
Discharge Plan Disposition Patient Disposition: Admitted Prescriptions Prescriptions: No Action sodium,potassium,mag sulfates [Suprep Bowel Prep Kit] 17.5-3.13-1.6 gram recon soln See Rx Instructions PO .COMPLEX Qty: 354 0RF Rx Instructions: DILUTE; drink full amount early evening before AND next morning at least 2 hr before procedure; follow w 960 mL water PO ascorbic acid (vitamin C) 1,000 MG tablet 1,000 mg PO DAILY aspirin 325 MG tablet 325 mg PO DAILY simvastatin 10 MG tablet 10 mg PO DAILY amlodipine 5 MG tablet 5 mg PO BID lisinopril 10 MG tablet 10 mg PO BID rgbsgnby-tox-LN-lycopen-lutein 1 EACH tablet 1 each PO DAILY omega-3 fatty acids 300 MG capsule 1,000 mg PO DAILY cyanocobalamin (vitamin B-12) 2,500 MCG tablet 2,500 mcg PO DAILY alfuzosin [Uroxatral] 10 mg Tablet Extended Release 24 Hr 10 mg PO BID levothyroxine 88 mcg tablet 88 mcg PO DAILY Referrals Follow up/Referrals: John Duran MD [Primary Care Provider, Medical] - See instructions Clinical Impressions Clinical Impression: Severe sepsis, Acute hyponatremia, Influenza A, Pneumonia, Encephalopathy acute Instructions Patient Instructions: DI for Altered Mental Status Print Language Print Language: [place] Discharge ED Provider: Osman Glasgow General Adult HPI General Chief complaint: Altered Mental Status Stated complaint: AO 10/08 0800 fell, sudden weakness, AMS Time Seen by Provider: 10/08/25 09:51 Mode of Arrival: Ambulatory Source of Information: Patient Description of Symptoms (Recalled from ER Triage Doc. by RN): pt was brought in by family this morning for generalized weakness, altered mental status, pt also has urianry retention and is meets sepsis protocol History of Present Illness HPI narrative: Patient is a 85-year-old male presenting today with generalized weakness altered mental status has had urinary retention and also has had a cough and shortness of breath over the last several days and a fever at home. Had a similar presentation several years ago where he was treated for urinary tract infection at [facility]. Is known to have prostatic hypertrophy. Related Data Home Medications ?Medication ?Instructions ?Recorded ?Confirmed amlodipine 5 mg tablet 5 mg PO BID 09/07/19 06/14/25 ascorbic acid (vitamin C) 1,000 mg 1,000 mg PO DAILY 09/07/19 06/14/25 tablet aspirin 325 mg tablet 325 mg PO DAILY 09/07/19 06/14/25 cyanocobalamin (vitamin B-12) 2,500 mcg PO DAILY 09/07/19 06/14/25 2,500 mcg tablet lisinopril 10 mg tablet 10 mg PO BID 09/07/19 06/17/25 vqfbvrvc-ybv-setse acid 0.4 1 each PO DAILY 09/07/19 06/14/25 mg-lycopene 300 mcg-lutein 250 mcg tablet omega-3 fatty acids 300 mg capsule 1,000 mg PO DAILY 09/07/19 06/14/25 simvastatin 10 mg tablet 10 mg PO DAILY 09/07/19 06/14/25 alfuzosin 10 mg tablet,extended 10 mg PO BID 11/21/24 06/17/25 release 24 hr (Uroxatral) levothyroxine 88 mcg tablet 88 mcg PO DAILY 11/22/24 06/17/25 Previous Rx's ?Medication ?Instructions ?Recorded sodium,potassium,mag sulfates 17.5 See Rx Instructions PO .COMPLEX 05/31/25 gram-3.13 gram-1.6 gram oral soln #354 mL (Suprep Bowel Prep Kit) Allergies Allergy/AdvReac Type Severity Reaction Status Date / Time No Known Allergies Allergy Verified 06/17/25 10:34 [facility] Disclaimer: The information contained in this section may have been updated after the patient was seen, as this information can be updated by other users. Medical History (Updated 10/08/25 @ 11:10 by Osman Glasgow MD) Constipation Remote history of stroke Cholecystitis CVA (cerebral vascular accident) Hyperlipidemia Hypertension Surgical History History of laparoscopic cholecystectomy Family History Other Hypertension Stroke Social History Smoking Status: Current every day smoker tobacco type: pipe second hand exposure: Yes alcohol intake: current alcohol intake frequency: a few times a week substance use type: denies use current occupational status: employed and retired Travel in the last 8 weeks?: None household members: spouse housing: house current occupation: [employer] current occupational exposures/hazards: No caffeine: Yes Have you lived/traveled outside US in past 30 days?: No Contact w/someone who lives/traveled outside US past 30 days?: No Exposure to someone with infectious disease in past 14 days?: No Do you have a fever (greater than 100.4 F or 38 C)?: No Have you tested positive for COVID-19?: No Exposed to someone with COVID-19 in past 14 days?: No Do you have a sore throat?: No Do you have a cough?: No Do you have any weakness?: No Do you have any diarrhea?: No Are you experiencing any unusual bleeding?: No Do you have any muscle aches/pain?: No Do you have any abdominal pain?: No Are you experiencing loss of taste or smell?: No Other Medical History Have you received the Flu Vaccine for this season: No Have you received the Pneumonia Vaccine: No ROS Obtained: Yes All systems reviewed & no additional complaints except as documented Physical Exam General General appearance: alert and in no apparent distress Head Head exam: atraumatic and normocephalic Respiratory Respiratory exam: Present other (Patient is tachypneic breathing 30-40 times a minute but no focal adventitious lung sounds no prolonged expiratory phase or wheezing ) Cardiovascular Cardiovascular exam: Present regular rate and normal rhythm Neurological Exam Neurological exam: Present alert and oriented X3 Medical Decision Making Medical Records Screening: Per USPSTF and CDC recommendations, given the prevalence of disease in our region, it is our hospital?s policy to screen for HIV and viral Hepatitis for all patients aged 18 and over and those with ongoing risk factors. [place] Inquiry Pt receiving controlled substance: No Vital Signs: 10/08/25 09:13 10/08/25 09:15 10/08/25 09:19 Temperature 101.1 F H Temperature Source Oral Pulse Rate 89 Pulse Rate [Left Radial] 94 H Respiratory Rate 20 Blood Pressure 178/73 H Blood Pressure [Right Arm] 178/73 H Blood Pressure Mean Blood Pressure Mean [Right Arm] 108 02 Sat by Pulse Oximetry 88 L 88 L 89 L Oxygen Delivery Method Room Air Room Air Room Air Oxygen Flow Rate (LPM) 2 10/08/25 09:31 10/08/25 10:41 10/08/25 11:00 Temperature Temperature Source Pulse Rate 97 H 86 88 Pulse Rate [Left Radial] Respiratory Rate 30 H 20 20 Blood Pressure 188/78 H 154/67 H 146/60 H Blood Pressure [Right Arm] Blood Pressure Mean 96 90 Blood Pressure Mean [Right Arm] 02 Sat by Pulse Oximetry 90 L 93 L 92 L Oxygen Delivery Method Nasal Cannula Oxygen Flow Rate (LPM) 2 Lab Data Lab results reviewed: Yes I reviewed the patient's lab results. Lab Results 10/08/25 09:20: WBC 15.0 H, RBC 3.66 L, Hgb 11.8 L, Hct 33.5 L, MCV 91.5, MCH 32.2 H, MCHC 35.2, RDW 13.1, Plt Count 211, MPV 9.9, Neut % (Auto) 84.5 H, Lymph % (Auto) 6.0 L, [place] % (Auto) 8.7, Eos % (Auto) 0.1, Baso % (Auto) 0.2, Neut # (Auto) 12.7 H, Lymph # (Auto) 0.9, [place] # (Auto) 1.3 H, Eos # (Auto) 0.0, Baso # (Auto) 0.0, Sodium 123 L, Potassium 4.3, Chloride 92 L, Carbon Dioxide 22, Anion Gap 13.3, BUN 20, Creatinine 1.20, Estimated Creat Clear 54, Estimated GFR 58 L, Est GFR ( Amer) 70, Glucose 100, Calcium 8.6, Total Bilirubin 0.4, AST 61 H, ALT 31, Alkaline Phosphatase 62, Troponin I 0.02, NT-Pro-B Natriuret Pep 3150 H, Total Protein 6.9, Albumin 4.0, Globulin 2.9, Albumin/Globulin Ratio 1.4, SARS-CoV-2 (PCR) Not detected, Influenza A Untype (PCR) Detected A, Influenza Type B (PCR) Not detected 10/08/25 09:30: Urine Color Yellow, Urine Appearance Clear, Urine pH 5.5, Ur Specific [place] 1.010, Urine Protein 1+ A, Urine Glucose (UA) Negative, Urine Ketones Trace, Urine Blood Negative, Urine Nitrate Negative, Urine Bilirubin Negative, Urine Urobilinogen 0.2, Ur Leukocyte Esterase Negative, Urine RBC None, Urine WBC Occasional, Ur Squamous Epith Cells Occasional, Urine Bacteria None 10/08/25 09:48: VBG pH 7.42 H, VBG pCO2 33.5 L, VBG pO2 85.1 H, VBG HCO3 21.1 L, VBG Total CO2 22.1 L, VBG O2 Saturation 97.3 H, VBG Base Excess -3.4 L, VBG Lactic Acid 1.4 10/08/25 09:20 10/08/25 09:20 Orders (Tests/Meds): ED MEDICATIONS Generic Name Dose Route Start Last Admin Trade Name Freq PRN Reason Stop Dose Admin Vancomycin/PEG/NADA/Lysine/Water 1.5 gm in 300 mls @ 150 mls/hr 10/08/25 10:15 10/08/25 10:54 Vancomycin 1.5gm/300ml (Peg) Premix IV 10/08/25 12:14 150 mls/hr ONCE ONE Administration Lactated Ringer's 2,190 mls @ 1,095 mls/hr 10/08/25 11:10 10/08/25 11:14 Lactated Ringer's 1000 Ml Bag 30 ml/kg infuse over 2 hr (2190 ml) 10/08/25 13:09 1,095 mls/hr IV Administration .Q2H ONE Discontinued Medications Generic Name Dose Route Start Last Admin Trade Name Freq PRN Reason Stop Dose Admin Acetaminophen 1,000 mg 10/08/25 09:48 10/08/25 09:51 Acetaminophen 1,000mg/100ml Vial IV 10/08/25 09:49 1,000 mg ONCE ONE Administration Lactated Ringer's 1,000 mls @ 999 mls/hr 10/08/25 10:15 10/08/25 10:27 Lactated Ringer's 1000 Ml Bag IV 10/08/25 11:15 999 mls/hr .Q1H1M CHANDLER Administration Piperacillin Sod/Tazobactam 100 mls @ 200 mls/hr 10/08/25 10:11 10/08/25 10:54 Sod 4.5 gm/ Sodium Chloride IV 10/08/25 10:40 Infused ONCE ONE Infusion Miscellaneous 1 each 10/08/25 10:15 Vancomycin Consult Request NOTAPPLIC 11/07/25 10:14 CONSULT PHARMACY CHANDLER Oseltamivir Phosphate 75 mg 10/08/25 10:12 10/08/25 10:27 Oseltamivir 75mg Capsule PO 10/08/25 10:13 75 mg ONCE ONE Administration ORDERS Category Date Time Status CXR --portable [XR chest portable] Stat Exams 10/08/25 09:59 Completed POCUS Point of Care (ER Only) Stat Exams 10/08/25 10:10 Completed BNP [NT Pro Brain Natriuretic Pep.] Stat Lab 10/08/25 09:20 Completed Complete Blood Count Auto Diff Stat Lab 10/08/25 09:20 Completed Comprehensive Metabolic Panel Stat Lab 10/08/25 09:20 Completed Rapid PCR Covid and Flu A/B Stat Lab 10/08/25 09:20 Completed Troponin I Q3H Lab 10/08/25 13:00 Ordered Troponin I Q3H Lab 10/08/25 16:00 Ordered Troponin I Stat Lab 10/08/25 09:20 Completed Urinalysis and Microscopic Stat Lab 10/08/25 09:30 Completed Blood Culture Stat Micro 10/08/25 09:23 Received Venous Blood Gas Stat RT 10/08/25 09:48 Completed Tissue Perfus/Sepsis Re-Eval Sepsis Re-Evaluation Performed: Yes Date Performed: 10/08/25 Time Performed: 11:16 Medical Decision Narrative: 85-year-old with above history and physical presenting today with tachypnea and fever and history concern for possible urinary tract infection versus pneumonia etc. Chest x-ray was performed which I personally interpreted which shows bibasilar patchy infiltrates atelectasis versus pneumonia given his clinical presentation we will err on the side of treating this for pneumonia with Vanco and Zosyn. Broad-spectrum coverage will be treated for the patient's sepsis also patient mentally has been having changes mental status at the moment he is alert and oriented but family states has been very confused at times this endorgan damage likely secondary to sepsis. No evidence of trauma no focal neurologic abnormalities. Patient will be aggressively hydrated with IV fluids bedside echo demonstrated normal LVEF with compressible IVC likely responsive to fluids. No significant volume overload or evidence of heart failure. Urinalysis from a cath urine was unremarkable. Patient had difficulty with urinating and out Maciel catheter was placed. Patient also has significant hyoNa which is contributory to his mental status, which currently is normal, no indication for HTN saline. The majoirty of the patients symptoms seem to be associated with sepsis from the flu, but superimposed bacterial pna and bacteremia remain on the differential and IV antibiotics will be initiated until cultures come back negative. Patient will be admitted to hospital medicine for further evaluation and management. Critical Care Critical Care Time Critical Care Time: Yes Attestation: On 10/08/25, the high probability of a clinically significant, sudden or life threatening deterioration of the following system(s) required my full and direct attention, intervention and personal management. The time I documented below is in addition to time spent performing reported procedures but includes the following listed in this critical care notation. Total Time Total Critical Care Time: 35
[2025-10-08 11:21] LABS: Squamous Epithelial Cell,Urine Occasional #/hpf (0-5); WBC,Urine Occasional #/hpf (0-3)
--- NOTE | 2025-10-08 11:50 | ECG_ITS ---
APPROVED REPORT Exam: Resting ECG HR:88 bpm ECG Measurements Heart Rate 88 AXES MS 183 P 77 QRSd 82 QRS 65 QT 324 T 73 QTc 369 Conclusion SINUS RHYTHM WITH FREQUENT SUPRAVENTRICULAR PREMATURE COMPLEXES SEPTAL MYOCARDIAL INFARCTION , OF INDETERMINATE AGE [40+ ms Q WAVE IN V1/V2] ABNORMAL ECG UNCONFIRMED REPORT Electronically signed by : Norman Glasgow, 10/08/2025 15:55:54
--- NOTE | 2025-10-08 11:58 | PC.NURSE ---
dr arias speaking with dr schwab
--- NOTE | 2025-10-08 12:02 | EXP.HP ---
History of Present Illness *Admission Date: 10/08/25 *Reason for visit:: Dyspnea, weakness, confusion *History of present illness: Mr. Peter is an 85-year-old male who states that for the past day or 2 he has felt more short of breath, developed cough, head weakness, body aches, mild confusion today noted by his family. He was brought in this morning for the symptoms. Also noted to have some urinary retention. Concern for possible UTI as they state he had an episode previously treated at with similar symptoms and turned out to be a UTI. On workup in the ER, found to be hypoxic with leukocytosis. Meeting sepsis criteria. Respiratory swab positive for flu. Chest imaging showing pneumonia. Medicine consulted for treatment of respiratory failure and pneumonia. Quite fatigued on my evaluation after arriving to the floor. In mild to moderate distress. Afebrile at this time. Was febrile on arrival to the ER. Tolerating 5 L after getting fluid bolus. Will continue antibiotics and Tamiflu. Able to answer questions appropriately but is quite fatigued. No family at bedside at the time of my evaluation [facility] Disclaimer: The information contained in this section may have been updated after the patient was seen, as this information can be updated by other users. Medical History Constipation Remote history of stroke Cholecystitis CVA (cerebral vascular accident) Hyperlipidemia Hypertension Surgical History History of laparoscopic cholecystectomy Family History Other Hypertension Stroke Social History Smoking Status: Current every day smoker tobacco type: pipe second hand exposure: Yes alcohol intake: current alcohol intake frequency: a few times a week substance use type: denies use current occupational status: employed and retired Travel in the last 8 weeks?: None household members: spouse housing: house current occupation: telecommunications officer current occupational exposures/hazards: No caffeine: Yes Have you lived/traveled outside US in past 30 days?: No Contact w/someone who lives/traveled outside US past 30 days?: No Exposure to someone with infectious disease in past 14 days?: No Do you have a fever (greater than 100.4 F or 38 C)?: No Have you tested positive for COVID-19?: No Exposed to someone with COVID-19 in past 14 days?: No Do you have a sore throat?: No Do you have a cough?: No Do you have any weakness?: No Do you have any diarrhea?: No Are you experiencing any unusual bleeding?: No Do you have any muscle aches/pain?: No Do you have any abdominal pain?: No Are you experiencing loss of taste or smell?: No Other Medical History Have you received the Flu Vaccine for this season: No Have you received the Pneumonia Vaccine: No Review of Systems Review of Systems Review of systems (narrative): 14 point review of systems performed, pertinent positives and negatives as per HPI Meds Home Medications and Allergies Home Medications ?Medication ?Instructions ?Recorded ?Confirmed ?Type amlodipine 5 mg tablet 5 mg PO BID 09/07/19 10/08/25 History ascorbic acid (vitamin C) 1,000 mg 1,000 mg PO DAILY 09/07/19 10/08/25 History tablet aspirin 325 mg tablet 325 mg PO DAILY 09/07/19 10/08/25 History cyanocobalamin (vitamin B-12) 2,500 mcg PO DAILY 09/07/19 10/08/25 History 2,500 mcg tablet lisinopril 10 mg tablet 10 mg PO BID 09/07/19 10/08/25 History frtztdxd-cvz-ukwjl acid 0.4 1 each PO DAILY 09/07/19 10/08/25 History mg-lycopene 300 mcg-lutein 250 mcg tablet simvastatin 10 mg tablet 10 mg PO HS 09/07/19 10/08/25 History alfuzosin 10 mg tablet,extended 10 mg PO BID 11/21/24 10/08/25 History release 24 hr (Uroxatral) levothyroxine 88 mcg tablet 88 mcg PO DAILYDM 11/22/24 10/08/25 History omega-3 fatty acids 1,000 mg 1,000 mg PO DAILY 10/08/25 10/08/25 History capsule New Prescriptions to Start Prescriptions: Allergies Allergy/AdvReac Type Severity Reaction Status Date / Time No Known Allergies Allergy Verified 06/17/25 10:34 Exam Data for Last 24 hours Vital signs and Labs for Last 24 Hours: Temp Pulse Resp BP Pulse Ox O2 Del Method O2 Flow Rate 101.1 F H 88 20 146/60 H 92 L Nasal Cannula 2 10/08/25 09:13 10/08/25 11:00 10/08/25 11:00 10/08/25 11:00 10/08/25 11:00 10/08/25 09:31 10/08/25 09:31 Laboratory Results - last 24 hr 10/08/25 09:20: WBC 15.0 H, RBC 3.66 L, Hgb 11.8 L, Hct 33.5 L, MCV 91.5, MCH 32.2 H, MCHC 35.2, RDW 13.1, Plt Count 211, MPV 9.9, Neut % (Auto) 84.5 H, Lymph % (Auto) 6.0 L, [place] % (Auto) 8.7, Eos % (Auto) 0.1, Baso % (Auto) 0.2, Neut # (Auto) 12.7 H, Lymph # (Auto) 0.9, [place] # (Auto) 1.3 H, Eos # (Auto) 0.0, Baso # (Auto) 0.0, Sodium 123 L, Potassium 4.3, Chloride 92 L, Carbon Dioxide 22, Anion Gap 13.3, BUN 20, Creatinine 1.20, Estimated Creat Clear 54, Estimated GFR 58 L, Est GFR ( Amer) 70, Glucose 100, Calcium 8.6, Total Bilirubin 0.4, AST 61 H, ALT 31, Alkaline Phosphatase 62, Troponin I 0.02, NT-Pro-B Natriuret Pep 3150 H, Total Protein 6.9, Albumin 4.0, Globulin 2.9, Albumin/Globulin Ratio 1.4, SARS-CoV-2 (PCR) Not detected, Influenza A Untype (PCR) Detected A, Influenza Type B (PCR) Not detected 10/08/25 09:30: Urine Color Yellow, Urine Appearance Clear, Urine pH 5.5, Ur Specific [place] 1.010, Urine Protein 1+ A, Urine Glucose (UA) Negative, Urine Ketones Trace, Urine Blood Negative, Urine Nitrate Negative, Urine Bilirubin Negative, Urine Urobilinogen 0.2, Ur Leukocyte Esterase Negative, Urine RBC None, Urine WBC Occasional, Ur Squamous Epith Cells Occasional, Urine Bacteria None 10/08/25 09:48: VBG pH 7.42 H, VBG pCO2 33.5 L, VBG pO2 85.1 H, VBG HCO3 21.1 L, VBG Total CO2 22.1 L, VBG O2 Saturation 97.3 H, VBG Base Excess -3.4 L, VBG Lactic Acid 1.4 I & O for Last 24 hours: Intake & Output 10/05/25 10/06/25 10/07/25 10/08/25 23:59 23:59 23:59 23:59 Intake Total 1100 / 1100 Balance 1100 / 1100 Weight 81.647 kg Constitutional Constitutional: mild distress, average body habitus, chronically ill appearing and cooperative *Routine HEENT Exam Head: Present normocephalic Eye: Present EOMI and PERRL ENT: Present mucous membranes moist *Routine Neck Exam Neck: Present supple; Absent lymphadenopathy *Routine Respiratory Exam Respiratory: Present accessory muscle use, respiratory distress, rhonchi and crackles; Absent stridor or wheezes *Routine Cardiovascular Exam Cardiovascular: Present RRR *Routine Abdominal Exam Abdominal: Present soft, normoactive bowel sounds and tenderness (Palpation of right upper quadrant produces epigastric discomfort. No rebound or guarding. No peritoneal signs) *Routine Rectal Exam Rectal:: deferred *Routine Genitalia Exam Genitalia:: deferred *Routine Extremities Exam Extremities: Absent cyanosis, clubbing or edema *Routine Skin Exam Skin: Present intact and warm; Absent rash *Routine Neurological Exam Neurological: Present alert, oriented X3 and moving all extremities; Absent altered mental status Assessment and Plan *Assessment and plan (1) Severe sepsis: Status: Acute Category: Medical Code(s): A41.9 - Sepsis, unspecified organism; R65.20 - Severe sepsis without septic shock (2) Acute hyponatremia: Status: Acute Category: Medical Code(s): E87.1 - Hypo-osmolality and hyponatremia (3) Influenza A: Status: Acute Category: Medical Code(s): J10.1 - Influenza due to other identified influenza virus with other respiratory manifestations (4) Pneumonia: Status: Acute Category: Medical Code(s): J18.9 - Pneumonia, unspecified organism (5) Hypertension: Status: Chronic Qualifiers: Hypertension type: primary hypertension Qualified Code(s): I10 - Essential (primary) hypertension Category: Medical Code(s): I10 - Essential (primary) hypertension (6) Hyperlipidemia: Status: Chronic Qualifiers: Hyperlipidemia type: mixed hyperlipidemia Qualified Code(s): E78.2 - Mixed hyperlipidemia Category: Medical Code(s): E78.5 - Hyperlipidemia, unspecified Plan 85-year-old male who presents with weakness, some mild confusion this morning, having some bodyaches as well along with shortness of breath. Found to have new oxygen requirement and positive for flu. Imaging positive for pneumonia. Meeting sepsis criteria with leukocytosis, tachycardia, tachypnea, and infection. Admitted to stepdown level of care for further management. Discussed case with ER physician, request admission for further treatment of sepsis and flu pneumonia. I decided to admit for further care. Started on Tamiflu, Zosyn, vancomycin. Continue supplemental oxygen. Prognosis guarded. Problems addressed as follows: Acute hypoxic respiratory failure Severe sepsis Flu A pneumonia - White count 15, hemoglobin 11.8. Patient febrile to 101, heart rate 94, respiratory rate 30. Started on supplemental oxygen with goal sats greater 90%. Currently on 4 to 5 L. - Chest CT and x-ray per my review showing patchy bilateral airspace disease consistent with pneumonia - Initiated on Zosyn and vancomycin in the ER along with Tamiflu. Continue Tamiflu 75 mg twice daily for flu component for 5 days - Continue vancomycin for 48 hours pending culture results. Transition to ceftriaxone 2 g daily pending sputum and blood culture results. - Repeat CBC, CMP, magnesium ordered for the morning -Kidney function normal with BUN 20, creatinine 1.2. Potassium 4.3. - DuoNebs every 6 hours scheduled Hyponatremia -Sodium 123, potassium 4.3, chloride 92. Suspect secondary to sepsis and dehydration. BUN 20, creatinine 1.2. - Receiving sepsis bolus with LR, repeat BMP ordered for 6 PM to monitor sodium levels closely. Replace between 8 to 10 mEq/day. Hypothyroid: Continue levothyroxine 88 mcg/day, TSH ordered for the morning Hypertension: Chronic, continue amlodipine 5 mg twice daily, will consider resuming lisinopril 10 mg twice daily given patient's blood pressure 149/71. Caution in the setting of sepsis. New finding of elevated BNP of 3100, concern for component of previously undiagnosed CHF. Will obtain echo Friday morning. Consider cardiology consult pending findings. If symptoms defervesced, will consider gentle diuresis - Chart review shows echo obtained in October of this year, normal BiV systolic function noted at that time. Patient did have difficulty urinating in the ER, catheter was placed at that time. Will leave overnight to monitor urine output and reevaluate in the morning. Continue home alpha Zosyn for prostate. Full code Prophylaxis Lovenox Cardiac diet
--- NOTE | 2025-10-08 12:02 | PC.NURSE ---
data warehouse analyst contacted for bed
--- NOTE | 2025-10-08 12:14 | PC.NURSE ---
attempted to call report to the ICU. they will return my call
--- NOTE | 2025-10-08 12:25 | PC.NURSE ---
report called to Marianne in ICU
--- NOTE | 2025-10-08 13:13 | HMH.PHAINT1 ---
Pharmacy Intervention Comments: MEDICATION RECONCILIATION COMPLETE USING EXTERNAL PHARMACY FILL HISTORY.
[2025-10-08 14:46] LABS: Troponin I 0.03 ng/ml (0.00-0.034)
--- NOTE | 2025-10-08 15:01 | EXP.PHA.CONS ---
Pharmacy Consult Date: 10/08/25 Time: 15:01 Referring provider: DR CHANG Reason for Consult:: VANCOMYCIN DOSING CONSULT Allergies Allergy/AdvReac Type Severity Reaction Status Date / Time No Known Allergies Allergy Verified 06/17/25 10:34 Home Medications ?Medication ?Instructions ?Recorded ?Confirmed ?Type amlodipine 5 mg tablet 5 mg PO BID 09/07/19 10/08/25 History ascorbic acid (vitamin C) 1,000 mg 1,000 mg PO DAILY 09/07/19 10/08/25 History tablet aspirin 325 mg tablet 325 mg PO DAILY 09/07/19 10/08/25 History cyanocobalamin (vitamin B-12) 2,500 mcg PO DAILY 09/07/19 10/08/25 History 2,500 mcg tablet lisinopril 10 mg tablet 10 mg PO BID 09/07/19 10/08/25 History wtndgqbn-oja-ifobt acid 0.4 1 each PO DAILY 09/07/19 10/08/25 History mg-lycopene 300 mcg-lutein 250 mcg tablet simvastatin 10 mg tablet 10 mg PO HS 09/07/19 10/08/25 History alfuzosin 10 mg tablet,extended 10 mg PO BID 11/21/24 10/08/25 History release 24 hr (Uroxatral) levothyroxine 88 mcg tablet 88 mcg PO DAILYDM 11/22/24 10/08/25 History omega-3 fatty acids 1,000 mg 1,000 mg PO DAILY 10/08/25 10/08/25 History capsule New Prescriptions to Start Prescriptions: Height: 1.78 m Weight: 81.647 kg Laboratory Results:: Laboratory Results - last 24 hr 10/08/25 09:20: WBC 15.0 H, RBC 3.66 L, Hgb 11.8 L, Hct 33.5 L, MCV 91.5, MCH 32.2 H, MCHC 35.2, RDW 13.1, Plt Count 211, MPV 9.9, Neut % (Auto) 84.5 H, Lymph % (Auto) 6.0 L, [place] % (Auto) 8.7, Eos % (Auto) 0.1, Baso % (Auto) 0.2, Neut # (Auto) 12.7 H, Lymph # (Auto) 0.9, [place] # (Auto) 1.3 H, Eos # (Auto) 0.0, Baso # (Auto) 0.0, Sodium 123 L, Potassium 4.3, Chloride 92 L, Carbon Dioxide 22, Anion Gap 13.3, BUN 20, Creatinine 1.20, Estimated Creat Clear 54, Estimated GFR 58 L, Est GFR ( Amer) 70, Glucose 100, Calcium 8.6, Total Bilirubin 0.4, AST 61 H, ALT 31, Alkaline Phosphatase 62, Troponin I 0.02, NT-Pro-B Natriuret Pep 3150 H, Total Protein 6.9, Albumin 4.0, Globulin 2.9, Albumin/Globulin Ratio 1.4, SARS-CoV-2 (PCR) Not detected, Influenza A Untype (PCR) Detected A, Influenza Type B (PCR) Not detected 10/08/25 09:30: Urine Color Yellow, Urine Appearance Clear, Urine pH 5.5, Ur Specific [place] 1.010, Urine Protein 1+ A, Urine Glucose (UA) Negative, Urine Ketones Trace, Urine Blood Negative, Urine Nitrate Negative, Urine Bilirubin Negative, Urine Urobilinogen 0.2, Ur Leukocyte Esterase Negative, Urine RBC None, Urine WBC Occasional, Ur Squamous Epith Cells Occasional, Urine Bacteria None 10/08/25 09:48: VBG pH 7.42 H, VBG pCO2 33.5 L, VBG pO2 85.1 H, VBG HCO3 21.1 L, VBG Total CO2 22.1 L, VBG O2 Saturation 97.3 H, VBG Base Excess -3.4 L, VBG Lactic Acid 1.4 10/08/25 14:00: Troponin I 0.03 Medical History: Medical History (Updated 10/08/25 @ 11:10 by Osman Glasgow MD) Constipation Remote history of stroke Cholecystitis CVA (cerebral vascular accident) Hyperlipidemia Hypertension Assessment and Plan Assessment and plan all Dx Assessment and Plan for all problems:: Pharmacokinetic dosing service Objective: Age: 85 yo Serum creatinine: 1.2 mg/dL Height: 70.0 Inches Weight (kg): 81.647 Diagnosis: PNEUMONIA Assessment: IBW (kg): 73.00 Dosing wt(kg): 81.647 Estimated Creatinine clearance (ml/min): 48.2 CRCL method: Cockcroft and Gault using ibw(default). Drug selected: Vancomycin Vd (liters): 57.2 (factor used: 0.7 L/kg) Deng (hr-1): 0.044 Half life (hrs): 15.75 CLvanco=?? 2.517 L/hr Recommended dose: 1500 mg Interval: 24 hrs Infusion time (hrs): 2.0 Predicted peak (mcg/mL): 38.5 Predicted trough (mcg/mL): 14.62 Total body weight is being used for vancomycin dosing. Recommendations: Give Vancomycin 1500 mg q 24 hrs with an expected Cpeak of 38.5 mcg/ml and an expected Ctrough of 14.62 mcg/ml AUC 0-24 /KEITH Data: KEITH 0.5 mcg/mL:?? AUC/KEITH:? 1191.9 KEITH 1.0 mcg/mL:?? AUC/KEITH:? 595.9 --------- KEITH 1.5 mcg/mL:?? AUC/KEITH:? 397.3 KEITH 2.0 mcg/mL:?? AUC/KEITH:? 298.0 Thank you for the consult
[2025-10-08 16:58] LABS: Troponin I 0.03 ng/ml (0.00-0.034)
[2025-10-08 17:33] LABS: Chloride 93 mmol/L (98-107); Sodium 119 mmol/L (136-145)
[2025-10-08 17:34] LABS: Potassium 4.2 mmoL/L (3.5-5.1)
[2025-10-08 17:36] LABS: Blood Urea Nitrogen 20 mg/dl (9-20); Creatinine Clearance Estimated 59 mL/min (50-200); Creatinine,Serum 1.10 mg/dl (0.66-1.25); Estimated Glomerular Filt Rate 64 ml/min (>60); GFR (African American) 77 ML/MIN (>60)
[2025-10-08 17:37] LABS: Anion Gap 11.2 mEq/L (5-15); Calcium 7.7 mg/dl (8.4-10.2); Carbon Dioxide 19 mmol/L (22.0-30.0); Glucose 93 mg/dl (74-100)
[2025-10-08] MEDS: FUROSEMIDE 40MG/4ML VIAL 40 MG IV (18:39)
[2025-10-08] MEDS: IPRATROPIUM/ALBUTEROL 3 ML NEB IH (19:58)
[2025-10-08] MEDS: TAMSULOSIN 0.4MG CAPSULE 0.4 MG PO (20:04)
[2025-10-08] MEDS: OSELTAMIVIR PHOSPHATE 6MG/ML ORAL SUSP 60ML 30 MG PO (20:15)
[2025-10-08 23:12] LABS: Anion Gap 14.3 mEq/L (5-15); Blood Urea Nitrogen 22 mg/dl (9-20); Calcium 8.3 mg/dl (8.4-10.2); Carbon Dioxide 21 mmol/L (22.0-30.0); Chloride 90 mmol/L (98-107); Creatinine Clearance Estimated 59 mL/min (50-200); Creatinine,Serum 1.10 mg/dl (0.66-1.25); Estimated Glomerular Filt Rate 64 ml/min (>60); GFR (African American) 77 ML/MIN (>60); Glucose 98 mg/dl (74-100); Potassium 3.3 mmoL/L (3.5-5.1); Sodium 122 mmol/L (136-145)
[2025-10-09] VITALS (24 sets, daily range): BP systolic 112–156; BP diastolic 53–90; PULSE 54–102; RESP 17–28; TEMP 36.8–38.9; O2SAT 89–96; BMI 25.9
[2025-10-09] MEDS: ACETAMINOPHEN 325MG TAB 650 MG PO (02:04)
[2025-10-09] MEDS: IPRATROPIUM/ALBUTEROL 3 ML NEB IH ×4 (06:25→19:04)
--- NOTE | 2025-10-09 07:03 | XR_ITS ---
PROCEDURE INFORMATION: Exam: XR Chest Exam date and time: 10/09/2025 7:05 AM Age: 85 years old Clinical indication: Shortness of breath; Additional info: Effusion? Worsening edema TECHNIQUE: Imaging protocol: Radiologic exam of the chest. Views: 1 view. COMPARISON: CR XR CHEST PORTABLE 10/08/2025 10:04 AM FINDINGS: Lungs: There has been interval development of bilateral predominantly upper lobe pulmonary infiltrates consistent with multifocal pneumonia. There is also a right infrahilar pulmonary infiltrate. There is hyperinflation which can be secondary to COPD. Pleural spaces: No pleural effusion. No pneumothorax. Heart/Mediastinum: No cardiomegaly. The aorta is slightly tortuous. Bones/joints: Unremarkable for age. IMPRESSION: 1. Interval development of bilateral pulmonary infiltrates most consistent with multi focal pneumonia. 2. There is some hyperinflation and probable COPD, which can result in pulmonary edema having atypical appearance common correlation with clinical history, laboratory studies and an echocardiogram may be indicated.
[2025-10-09 07:13] LABS: Acinetobacter calcoaceticus-ba Not Detected; Bacteroides fragilis Not Detected; Candida auris Not Detected; Candida glabrata Not Detected; Enterobacterales Not Detected; Enterococcus faecalis Not Detected; Enterococcus faecium Not Detected; Klebsiella aerogenes Not Detected; Klebsiella pneumoniae grp Not Detected; Proteus spp. Not Detected; Salmonella spp. Not Detected; Serratia marcescens Not Detected; Staphylococcus epidermidis Not Detected; Staphylococcus lugdunensis Not Detected; Staphylococcus spp. Not Detected; Stenotrophomonas maltophilia Not Detected; Streptococcus agalactiae(GrpB) Not Detected; Streptococcus pyogenes Group A Not Detected; Streptococcus spp. Not Detected
--- NOTE | 2025-10-09 07:33 | P.PN_ITS ---
Subjective *Date: 10/09/25 *Time: 10:25 Interval history: Patient states he is feeling better this morning. Still on 5 L. White count with marginal improvement. Up to bedside chair. Less distressed. No nausea or vomiting. Alert and oriented x 3 but still quite weak Medical Exam Vital signs and Labs for Last 24 Hours: Vital Signs Temp Pulse Pulse Resp BP BP Pulse Ox 10/09/25 07:00 10/09/25 06:25 93 L 10/09/25 06:01 67 21 145/61 H 90 L 10/09/25 05:21 98.9 F 10/09/25 05:00 10/09/25 04:00 102.0 F H 86 22 146/64 H 89 L 10/09/25 04:00 90 10/09/25 03:00 10/09/25 02:00 95 10/09/25 02:00 68 27 H 149/64 H 91 L 10/09/25 01:28 101.8 F H 10/09/25 01:00 10/09/25 00:00 96 H 10/09/25 00:00 71 28 H 148/65 H 94 L 10/08/25 23:00 10/08/25 22:01 67 25 H 138/60 91 L 10/08/25 20:05 10/08/25 20:03 88 10/08/25 20:00 91 L 10/08/25 20:00 90 10/08/25 20:00 10/08/25 20:00 98.3 F 89 29 H 142/64 H 91 L 10/08/25 19:00 10/08/25 18:00 98.1 F 86 16 145/62 H 94 L 10/08/25 18:00 98.6 F 87 16 154/64 H 93 L 10/08/25 17:00 10/08/25 16:01 98.6 F 93 H 20 157/68 H 90 L 10/08/25 16:00 98.0 F 92 H 16 146/62 H 95 10/08/25 15:00 10/08/25 13:00 10/08/25 13:00 99.4 F 90 22 149/71 H 10/08/25 12:30 92 H 20 149/71 H 95 10/08/25 12:14 90 L 10/08/25 12:00 98.4 F 88 16 144/63 H 90 L 10/08/25 12:00 82 20 146/68 H 95 10/08/25 11:30 18 161/66 H 96 10/08/25 11:00 88 20 146/60 H 92 L 10/08/25 10:41 86 20 154/67 H 93 L 10/08/25 09:31 97 H 30 H 188/78 H 90 L 10/08/25 09:19 89 178/73 H 89 L 10/08/25 09:15 88 L 10/08/25 09:13 101.1 F H 94 H 20 178/73 H 88 L O2 Del Method O2 Flow Rate 10/09/25 07:00 Nasal Cannula 5 10/09/25 06:25 Nasal Cannula 5 10/09/25 06:01 Nasal Cannula 5 10/09/25 05:21 10/09/25 05:00 Nasal Cannula 5 10/09/25 04:00 Nasal Cannula 5 10/09/25 04:00 10/09/25 03:00 Nasal Cannula 5 10/09/25 02:00 Nasal Cannula 5 10/09/25 02:00 Nasal Cannula 5 10/09/25 01:28 10/09/25 01:00 Nasal Cannula 5 10/09/25 00:00 10/09/25 00:00 Nasal Cannula 5 10/08/25 23:00 Nasal Cannula 5 10/08/25 22:01 Nasal Cannula 6 10/08/25 20:05 Nasal Cannula 6 10/08/25 20:03 10/08/25 20:00 Nasal Cannula 6 10/08/25 20:00 10/08/25 20:00 Nasal Cannula 6 10/08/25 20:00 Nasal Cannula 6 10/08/25 19:00 Nasal Cannula 6 10/08/25 18:00 Nasal Cannula 6 10/08/25 18:00 Nasal Cannula 6 10/08/25 17:00 Nasal Cannula 5 10/08/25 16:01 Nasal Cannula 5 10/08/25 16:00 Room Air 10/08/25 15:00 Nasal Cannula 5 10/08/25 13:00 Nasal Cannula 5 10/08/25 13:00 Nasal Cannula 2 10/08/25 12:30 10/08/25 12:14 Nasal Cannula 95 10/08/25 12:00 4 10/08/25 12:00 10/08/25 11:30 10/08/25 11:00 10/08/25 10:41 10/08/25 09:31 Nasal Cannula 2 10/08/25 09:19 Room Air 10/08/25 09:15 Room Air 2 10/08/25 09:13 Room Air Intake and Output 10/08/25 10/08/25 10/09/25 15:59 23:59 07:59 Intake Total 3710 / 4250 340 / 4250 200 / 200 Output Total 1700 / 4745 3045 / 4745 800 / 800 Balance 2009 / 495 -2705 / -495 -600 / -600 Intake: Intake, Oral Amount 120 / 560 240 / 560 200 / 200 Intake, Total IV Amount 3590 / 3690 100 / 3690 Ceftriaxone Sodium 2 gm In 0.9 100 / 100 % Sodium Chloride 100 ml @ 200 mls/hr IV Q24H [facility] Rx#:[id number] Lactated Ringers 1000ML 1,000 1000 / 1000 ml @ 999 mls/hr IV .Q1H1M [facility] Rx#:[id number] Lactated Ringers 1000ML 2,190 2190 / 2190 ml @ 1095 mls/hr IV .Q2H [facility] Rx #:[id number] Piperacillin/Tazo 4.5 gm In 0.9 100 / 100 % Sodium Chloride 100 ml @ 200 mls/hr IV ONCE ONE Rx#: [id number] Vancomycin/Water For Inj (Peg) 300 / 300 1.5 gm In 300 ml @ 150 mls/hr IV ONCE ONE Rx#:[id number] Output: Output, Urine Amount 700 / 3545 2845 / 3545 800 / 800 Output, Urine Amount (Catheter) 1000 / 1200 200 / 1200 Maciel 1000 / 1200 200 / 1200 Other: Number of Unmeasured Voids 0 0 0 Number of Bowel Movements 1 Weight 81.647 kg 82.146 kg Patient Weight 10/09/25 23:59 Weight 82.146 kg Laboratory Results - last 24 hr 10/08/25 09:20: WBC 15.0 H, RBC 3.66 L, Hgb 11.8 L, Hct 33.5 L, MCV 91.5, MCH 32.2 H, MCHC 35.2, RDW 13.1, Plt Count 211, MPV 9.9, Neut % (Auto) 84.5 H, Lymph % (Auto) 6.0 L, [place] % (Auto) 8.7, Eos % (Auto) 0.1, Baso % (Auto) 0.2, Neut # (Auto) 12.7 H, Lymph # (Auto) 0.9, [place] # (Auto) 1.3 H, Eos # (Auto) 0.0, Baso # (Auto) 0.0, Sodium 123 L, Potassium 4.3, Chloride 92 L, Carbon Dioxide 22, Anion Gap 13.3, BUN 20, Creatinine 1.20, Estimated Creat Clear 54, Estimated GFR 58 L, Est GFR ( Amer) 70, Glucose 100, Calcium 8.6, Total Bilirubin 0.4, AST 61 H, ALT 31, Alkaline Phosphatase 62, Troponin I 0.02, NT-Pro-B Natriuret Pep 3150 H, Total Protein 6.9, Albumin 4.0, Globulin 2.9, Albumin/Globulin Ratio 1.4, A. baumannii (PCR) Not detected, Bacteroides fragilis Not detected, Shivani albicans (PCR) Not detected, Shivani auris (PCR) Not detected, C. glabrata (PCR) Not detected, C. krusei (PCR) Not detected, C. parapsilosis (PCR) Not detected, C. tropicalis (PCR) Not detected, SARS-CoV-2 (PCR) Not detected, Cryptococcus neoformans PCR Not detected, Enterobacterales (PCR) Not detected, Enterococc faecalis PCR Not detected, Enterococc faecium PCR Not detected, E. coli (PCR) Not detected, H. influenzae DNA Not detected, Influenza A Untype (PCR) Detected A, Influenza Type B (PCR) Not detected, Klebsiella aerogenes (PCR) Not detected, Klebsiella oxytoca PCR Not detected, K. pneumoniae group (PCR) Not detected, List. monocytogenes PCR Not detected, N. meningitidis (PCR) Not detected, Proteus species (PCR) Not detected, Salmonella spp. (PCR) Not detected, Serratia marcescens PCR Not detected, Staphylococcus sp PCR Not detected, Staph aureus (PCR) Not detected, mecA/C & MREJ Resist Gene Not applicable, mecA/C-Methicil Resis Gene Not applicable, Staph epidermidis (PCR) Not detected, Staph lugdunensis (TEM-PCR) Not detected, S. maltophilia (PCR) Not detected, Streptococcus sp PCR Not detected, S.agalactiae Grp B CANDACE Not detected, Strep pneumoniae (PCR) Not detected, S. pyogenes GrpA CANDACE Not detected, P. aeruginosa (PCR) Not detected, Kendy/B-Vanco Res Genes Not applicable, blaIMP Car res Gene PCR Not applicable, KPC-Carbap Res Gene PCR Not applicable, blaNDM Car Res Gene PCR Not applicable, OXA-48 Carbapenem Resis Gene (PCR) Not applicable, blaVIM Car Res Gene PCR Not applicable, CTX-M Gene Resistance (PCR) Not applicable, MCR-1 Resistance Gene Not applicable 10/08/25 09:30: Urine Color Yellow, Urine Appearance Clear, Urine pH 5.5, Ur Specific [place] 1.010, Urine Protein 1+ A, Urine Glucose (UA) Negative, Urine Ketones Trace, Urine Blood Negative, Urine Nitrate Negative, Urine Bilirubin Negative, Urine Urobilinogen 0.2, Ur Leukocyte Esterase Negative, Urine RBC None, Urine WBC Occasional, Ur Squamous Epith Cells Occasional, Urine Bacteria None 10/08/25 09:48: VBG pH 7.42 H, VBG pCO2 33.5 L, VBG pO2 85.1 H, VBG HCO3 21.1 L, VBG Total CO2 22.1 L, VBG O2 Saturation 97.3 H, VBG Base Excess -3.4 L, VBG Lactic Acid 1.4 10/08/25 14:00: Troponin I 0.03 10/08/25 16:20: Sodium 119 L, Potassium 4.2, Chloride 93 L, Carbon Dioxide 19 L, Anion Gap 11.2, BUN 20, Creatinine 1.10, Estimated Creat Clear 59, Estimated GFR 64, Est GFR ( Amer) 77, Glucose 93, Calcium 7.7 L, Troponin I 0.03 10/08/25 22:57: Sodium 122 L, Potassium 3.3 L D, Chloride 90 L, Carbon Dioxide 21 L, Anion Gap 14.3, BUN 22 H, Creatinine 1.10, Estimated Creat Clear 59, Estimated GFR 64, Est GFR ( Amer) 77, Glucose 98, Calcium 8.3 L I & O for Labs for Last 24 Hours: Intake & Output 10/06/25 10/07/25 10/08/25 10/09/25 23:59 23:59 23:59 23:59 Intake Total 4050 / 4250 200 / 200 Output Total 4745 / 4745 800 / 800 Balance -695 / -495 -600 / -600 Weight 81.647 kg 82.146 kg Constitutional: Present mild distress, average body habitus, chronically ill appearing and cooperative Head: Present atraumatic and normocephalic ENT: Present normal exam Respiratory: Present rhonchi, crackles and normal respiratory effort; Absent wheezes Cardiac: Present Reg Rate and Rhythm GI: Present soft and normal bowel sounds; Absent distention or tenderness Extremities: Present normal inspection and full ROM Skin: Present intact; Absent erythema Neuro: Present Grossly Intact, alert, awake, oriented x 3 and moves all extremities Assessment and Plan *Assessment and plan (1) Severe sepsis: Status: Acute Category: Medical Code(s): A41.9 - Sepsis, unspecified organism; R65.20 - Severe sepsis without septic shock (2) Acute hyponatremia: Status: Acute Category: Medical Code(s): E87.1 - Hypo-osmolality and hyponatremia (3) Influenza A: Status: Acute Category: Medical Code(s): J10.1 - Influenza due to other identified influenza virus with other respiratory manifestations (4) Pneumonia: Status: Acute Category: Medical Code(s): J18.9 - Pneumonia, unspecified organism (5) Hypertension: Status: Chronic Qualifiers: Hypertension type: primary hypertension Qualified Code(s): I10 - Essential (primary) hypertension Category: Medical Code(s): I10 - Essential (primary) hypertension (6) Hyperlipidemia: Status: Chronic Qualifiers: Hyperlipidemia type: mixed hyperlipidemia Qualified Code(s): E78.2 - Mixed hyperlipidemia Category: Medical Code(s): E78.5 - Hyperlipidemia, unspecified Plan 85-year-old male who presents with weakness, some mild confusion this morning, having some bodyaches as well along with shortness of breath. Found to have new oxygen requirement and positive for flu. Imaging positive for pneumonia. Meeting sepsis criteria with leukocytosis, tachycardia, tachypnea, and infection. Admitted to stepdown level of care for further management. Discussed case with ER physician, request admission for further treatment of sepsis and flu pneumonia. I decided to admit for further care. Continue on Tamiflu, Zosyn, vancomycin. Wean oxygen as tolerated. Prognosis guarded. Problems addressed as follows: Acute hypoxic respiratory failure Severe sepsis Flu A pneumonia - White count 15, hemoglobin 11.8. Patient febrile to 101, heart rate 94, respiratory rate 30 on admission - Showing improvement, white count 12.9, hemoglobin 12. Afebrile today. Repeat CBC, CMP, magnesium ordered for the morning. - Continue supplemental oxygen as needed for goal sats greater 90%. Currently on 5 L. - Repeat chest x-ray obtained today showing increased bilateral upper lobe opacification/airspace disease. - Pulmonology consulted to evaluate in the morning. - Initiated on Zosyn and vancomycin in the ER along with Tamiflu. Continue Tamiflu 75 mg twice daily for flu component for 5 days - Continue vancomycin for 48 hours pending culture results. Transition to ceftriaxone 2 g daily pending sputum and blood culture results. - Repeat CBC, CMP, magnesium ordered for the morning - DuoNebs every 6 hours scheduled Hyponatremia Hypokalemia - sodium is fluctuated from 119-123 for the past 24 hours. Potassium low at 3.2. Chloride 93. Suspect secondary to sepsis and dehydration. BUN 22, creatinine 1.2. - Diuresed x 1 yesterday. Had good output with negative fluid status of over a liter. States he is breathing little better today. - Will consider diuretics later this afternoon to assist with hyponatremia and hemoconcentration/loss of free water. - Initiate sodium chloride supplementation 500 mg 3 times a day p.o. - Repeat BMP every 8 hours to monitor sodium correction, monitor for improvement between 8 to 10 mEq/day. Hypothyroid: Continue levothyroxine 88 mcg/day, TSH ordered for the morning Hypertension: Chronic, holding amlodipine and lisinopril in the setting of sepsis. Normotensive today. New finding of elevated BNP of 3100, concern for component of previously undiagnosed CHF. Will obtain echo Friday morning. Consider cardiology consult pending findings. - Responded well to diuresis yesterday. Consider repeat dose today. - Chart review shows echo obtained in October of this year, normal BiV systolic function noted at that time. Patient did have difficulty urinating in the ER, catheter was placed at that time. Remove Maciel today. Continue home alfuzosin for prostate. Full code Prophylaxis Lovenox Cardiac diet
[2025-10-09] MEDS: LEVOTHYROXINE 88MCG (0.088MG) TAB 88 MCG PO (07:45)
[2025-10-09 08:11] LABS: Hematocrit 34.2 % (42.0-52.0); Hemoglobin 12.0 g/dL (14.1-18.0); Immature Granulocytes % 0.4 %; Mean Corpuscular HGB Conc 35.1 g/dL (31.8-35.4); Mean Corpuscular Hemoglobin 31.9 pg (27.0-31.2); Mean Corpuscular Volume 91.0 fl (80-94); Nucleated Red Blood Cells % 0 %; Platelet Count 191 K/mm3 (142-424); Red Blood Count 3.76 M/mm3 (4.60-6.20); Red Cell Distribution Width-SD 43.8 fL; White Blood Count 12.9 K/mm3 (4.8-10.8)
[2025-10-09] MEDS: OSELTAMIVIR PHOSPHATE 6MG/ML ORAL SUSP 60ML 30 MG PO ×2 (08:12→20:42)
[2025-10-09 08:32] LABS: Albumin Level 3.4 g/dl (3.5-5.0); Chloride 93 mmol/L (98-107)
[2025-10-09 08:33] LABS: Potassium 3.2 mmoL/L (3.5-5.1); Sodium 119 mmol/L (136-145)
[2025-10-09 08:35] LABS: Alanine Aminotransferase 32 U/L (12-78); Albumin/Globulin Ratio 1.2 (1.1-1.8); Anion Gap 6.2 mEq/L (5-15); Aspartate Amino Transferase 73 U/L (17-59); Blood Urea Nitrogen 22 mg/dl (9-20); Carbon Dioxide 23 mmol/L (22.0-30.0); Creatinine Clearance Estimated 54 mL/min (50-200); Creatinine,Serum 1.20 mg/dl (0.66-1.25); Estimated Glomerular Filt Rate 58 ml/min (>60); GFR (African American) 70 ML/MIN (>60); Globulin 2.8 g/dL (1.3-3.2); Total Protein,Serum 6.2 g/dl (6.3-8.2)
[2025-10-09 08:36] LABS: Alkaline Phosphatase 56 U/L (38-126); Bilirubin,Total 0.4 mg/dl (0.2-1.3); Calcium 7.8 mg/dl (8.4-10.2); Glucose 148 mg/dl (74-100); Magnesium 1.5 mg/dl (1.6-2.3)
--- NOTE | 2025-10-09 08:46 | HMH.PHAAMS2 ---
- Antimicrobial Stewardship Review culture & sensitivity review Stewardship interventions: culture & sensitivity review, reviewed - no change Comments: BLOOD CX PENDING, SPUTUM UNCOLLECTED. PATIENT EMPIRICALLY ON VANCOMYCIN/ROCEPHIN FOR PNEUMONIA, TAMIFLU FOR INFLUENZA (CURRENTLY DAY 2/). TMAX 102 IN THE LAST 24 HR, WBC IMPROVED FROM 15.0 K/mm3 TO 12.9 K/mm3 TODAY.
[2025-10-09] MEDS: VANCOMYCIN/WATER FOR INJ (PEG) 1.5 GM/300 ML PIGGYBACK IV (10:50)
--- NOTE | 2025-10-09 11:06 | PC.NURSE ---
HOUSE AND ADMISSIONS AWARE OF TRANSFER FROM [facility] TO [facility]
[2025-10-09] MEDS: MAGNESIUM SULFATE IN WATER 2 GM/50 ML PIGGYBACK IV ×2 (12:58→14:09)
[2025-10-09] MEDS: POTASSIUM CHLORIDE 20MEQ TAB 40 MEQ PO ×2 (12:58→17:36)
[2025-10-09] MEDS: SODIUM CHLORIDE 1,000MG TABLET 500 MG PO ×2 (12:59→20:42)
[2025-10-09] MEDS: SODIUM CHLORIDE 3% 15ML NEB 3 ML IH (14:14)
[2025-10-09 14:15] LABS: Chloride 94 mmol/L (98-107); Potassium 3.5 mmoL/L (3.5-5.1); Sodium 120 mmol/L (136-145)
[2025-10-09 14:18] LABS: Anion Gap 6.5 mEq/L (5-15); Blood Urea Nitrogen 25 mg/dl (9-20); Calcium 7.8 mg/dl (8.4-10.2); Carbon Dioxide 23 mmol/L (22.0-30.0); Creatinine Clearance Estimated 54 mL/min (50-200); Creatinine,Serum 1.20 mg/dl (0.66-1.25); Estimated Glomerular Filt Rate 58 ml/min (>60); GFR (African American) 70 ML/MIN (>60); Glucose 112 mg/dl (74-100)
--- NOTE | 2025-10-09 18:28 | PC.NURSE ---
A&OX4. PT HAS TOLERATED OXYGEN WELL TODAY. STARTED OFF ON 5L NC AND IS CURRENTLY ON 3L NC. RESPIRATIONS REGULAR AND UNLABORED. EXPIRATORY AND INSPIRATORY WHEEZES NOTED THROUGHOUT. NO COUGH NOTED. HEART RATE REGULAR. NO EDEMA NOTED. HAND SPANISH TUTOR EQUAL. ACTIVE BOWEL SOUNDS HEARD IN ALL 4 QUADRANTS. SOFT AND NONTENDER ABDOMEN. PT HAS HAD 4 BMS NOTED TODAY. DIARRHEA NOTED. NO ODOR NOTED. PT HAD A BALTAZAR AT BEGINNING OF SHIFT THAT WAS REMOVED EARLY ON IN THE SHIFT AND HAS HAD ADEQUATE URINE OUTPUT SINCE. PT STATES HE IS FEELING MUCH BETTER COMPARED TO YESTERDAY. FAMILY DID COME VISIT PT EARLIER. PT RECEIVED BED BATH AND LINEN CHANGE THIS SHIFT. DENIES ANY PAIN. PT IS ABLE TO TRANSFER FROM BED TO CHAIR WITH STANDBY ASSISTANCE. PT HAS BEEN UP IN THE CHAIR FOR ALL MEALS. PT HASN'T HAD MUCH OF AN APPETITE HE STATES AND DENIES WANT FOR ANYTHING ELSE. PT HAS USED INCENTIVE SPIROMETER 10 TIMES EVERY HOUR WHILE AWAKE. BED IN LOWEST POSITION. CALL LIGHT WITHIN REACH. VSS. PT HAS REMAINED AFEBRILE THIS SHIFT.
[2025-10-09] MEDS: TAMSULOSIN 0.4MG CAPSULE 0.4 MG PO (20:42)
[2025-10-09 22:57] LABS: Chloride 94 mmol/L (98-107); Potassium 3.7 mmoL/L (3.5-5.1); Sodium 121 mmol/L (136-145)
[2025-10-09 23:00] LABS: Anion Gap 6.7 mEq/L (5-15); Blood Urea Nitrogen 26 mg/dl (9-20); Calcium 7.8 mg/dl (8.4-10.2); Carbon Dioxide 24 mmol/L (22.0-30.0); Creatinine Clearance Estimated 59 mL/min (50-200); Creatinine,Serum 1.10 mg/dl (0.66-1.25); Estimated Glomerular Filt Rate 64 ml/min (>60); GFR (African American) 77 ML/MIN (>60); Glucose 122 mg/dl (74-100)
[2025-10-10] VITALS (15 sets, daily range): BP systolic 125–166; BP diastolic 65–82; PULSE 83–110; RESP 16–29; TEMP 36.5–37; O2SAT 91–95; BMI 25.4
[2025-10-10 01:30] LABS: Microscopic, Urine URINE MICROSCOPIC (MICROSCOPIC)
[2025-10-10 01:31] LABS: Bilirubin,Urine Negative (Negative); Color,Urine YELLOW (Yellow); Glucose,Urine (UA) Negative (Negative); Ketones,Urine Negative (Negative); Leukocyte Esterase,Urine Negative (Negative); PH,Urine 6.0 (5.0-8.5); Protein,Urine 2+ (Negative); Specific Gravity, Urine 1.020 (1.005-1.030); Urobilinogen,Urine 0.2 EU/dl (0.2)
[2025-10-10 05:19] LABS: Albumin Level 3.2 g/dl (3.5-5.0); Chloride 97 mmol/L (98-107); Sodium 123 mmol/L (136-145)
[2025-10-10 05:20] LABS: Potassium 4.0 mmoL/L (3.5-5.1)
[2025-10-10 05:22] LABS: Alanine Aminotransferase 30 U/L (12-78); Albumin/Globulin Ratio 1.1 (1.1-1.8); Anion Gap 6.0 mEq/L (5-15); Aspartate Amino Transferase 74 U/L (17-59); Blood Urea Nitrogen 21 mg/dl (9-20); Carbon Dioxide 24 mmol/L (22.0-30.0); Creatinine Clearance Estimated 64 mL/min (50-200); Creatinine,Serum 1.00 mg/dl (0.66-1.25); Estimated Glomerular Filt Rate 71 ml/min (>60); GFR (African American) 86 ML/MIN (>60); Globulin 2.9 g/dL (1.3-3.2); Total Protein,Serum 6.1 g/dl (6.3-8.2)
[2025-10-10 05:23] LABS: Alkaline Phosphatase 64 U/L (38-126); Bilirubin,Total 0.3 mg/dl (0.2-1.3); Calcium 8.2 mg/dl (8.4-10.2); Glucose 113 mg/dl (74-100); Magnesium 1.9 mg/dl (1.6-2.3)
[2025-10-10 05:37] LABS: Hematocrit 33.9 % (42.0-52.0); Hemoglobin 11.8 g/dL (14.1-18.0); Immature Granulocytes % 0.3 %; Mean Corpuscular HGB Conc 34.8 g/dL (31.8-35.4); Mean Corpuscular Hemoglobin 31.6 pg (27.0-31.2); Mean Corpuscular Volume 90.6 fl (80-94); Nucleated Red Blood Cells % 0 %; Platelet Count 209 K/mm3 (142-424); Red Blood Count 3.74 M/mm3 (4.60-6.20); Red Cell Distribution Width-SD 42.6 fL; White Blood Count 14.6 K/mm3 (4.8-10.8)
--- NOTE | 2025-10-10 06:00 | CA_ITS ---
APPROVED REPORT EXAM: Comprehensive 2D, Doppler, and color-flow Echocardiogram Machinist Instructor: Alaina Mcgee RVT Ht: 5 ft 10 in Wt: 180lbs BSA: 2.00 BP: 146/60 mmHg Indications: Congestive Heart Failure,Flu,Pneumonia 2D Dimensions IVSd 1.02 cm M: 0.6-1.2 LVEF (Visual) 62.60 % PWd 0.78 cm M: 0.6 - 1.2 LA Volume 64.70 mL LVDd 5.69 cm M: 4.2 - 5.9 LA Volume Index 32.35 mL/m2 (M/F) 16-34 LVDs 3.74 cm M: 2.5 - 4.0 M-Mode Dimensions LA Diam 4.17 cm (1.9-4.0) TAPSE 2.62 (<1.7) LV Diastology E Decel Time 257 (160-240 msec) E/A Ratio 0.8 Aortic Valve ALBERTO Index 1.79 cm2/m2 AoV Peak Meir. 147.0 (50-130 cm/s) AO Peak GR. 8.70 mmHg AO Mean GR. 4.90 (<5 mmHg) AO VTI 28.1 (18-25 cm) ALBERTO (VTI) 3.66 (2.5-4.5 cm2) Mitral Valve MV E Max Meir. 87.0 (40-130 cm/s) MV A Velocity 104.0 (40-130 cm/s) E/A Ratio 0.84 MV PHT 75.0 ms Pulmonary Valve PV Peak Velocity 88.0 (50-150 cm/s) Left Ventricle The left ventricle is normal size. Left ventricular systolic function is normal. The left ventricular ejection fraction is within the normal range. There is increased left ventricular wall thickness. There is normal LV segmental wall motion. Transmitral Doppler flow pattern suggests impaired LV relaxation. LVEF is 60% Right Ventricle The right ventricle is normal size. The right ventricular systolic function is normal. Atria The left atrium is mildly dilated. Right atrium is mildly dilated. There is no color Doppler evidence of interatrial shunt. Aortic Valve The aortic valve is mildly thickened. There is no hemodynamically significant aortic valvular stenosis. Trace aortic regurgitation is present. Mitral Valve The mitral valve is normal in structure. No evidence of mitral valve stenosis. Trace mitral regurgitation is present. Tricuspid Valve The tricuspid valve leaflets are thin and pliable. Trace tricuspid regurgitation. There is insufficient TR jet to estimate RVSP. Pulmonic Valve The pulmonary valve is grossly normal in structure. Trace pulmonic valve regurgitation is present. Great Vessels The aortic root is normal in size. IVC is normal in size and collapses >50% with inspiration. Pericardium There is a small sized, anterior pericardial effusion present. The largest pocket measures 0.4 cm in diastole. No echo indications of tamponade. Conclusion Normal biventricular systolic function. Biatrial dilation. No significant valvular stenosis or regurgitation. Small sized, anterior pericardial effusion present. The largest pocket measures 0.4 cm in diastole. No echo indications of tamponade. Electronically signed by : Leticia Arriaga MD 10/10/2025 13:28:35
[2025-10-10] MEDS: IPRATROPIUM/ALBUTEROL 3 ML NEB IH ×2 (06:19→09:43)
[2025-10-10] MEDS: LEVOTHYROXINE 88MCG (0.088MG) TAB 88 MCG PO (06:43)
--- NOTE | 2025-10-10 07:42 | PC.NURSE ---
echo at bedside
[2025-10-10] MEDS: OSELTAMIVIR PHOSPHATE 6MG/ML ORAL SUSP 60ML 30 MG PO ×2 (09:03→20:13)
[2025-10-10] MEDS: SODIUM CHLORIDE 1,000MG TABLET 500 MG PO ×3 (09:03→20:12)
--- NOTE | 2025-10-10 09:21 | HMH.PTEV ---
Physical Therapy Evaluation Rehab PT IP Evaluation Start: 10/10/25 08:01 Freq: ONCE Status: Active Protocol: Document 10/10/25 09:14 ISA (Rec: 10/10/25 09:21 ISA [id number]) Subjective/History History History Per H&P: Mr. Peter is an 85-year-old male who states that for the past day or 2 he has felt more short of breath, developed cough, head weakness, body aches, mild confusion today noted by his family. He was brought in this morning for the symptoms. Also noted to have some urinary retention. Concern for possible UTI as they state he had an episode previously treated at with similar symptoms and turned out to be a UTI. On workup in the ER, found to be hypoxic with leukocytosis. Meeting sepsis criteria. Respiratory swab positive for flu. Chest imaging showing pneumonia . Medicine consulted for treatment of respiratory failure and pneumonia. Quite fatigued on my evaluation after arriving to the floor. In mild to moderate distress. Afebrile at this time. Was febrile on arrival to the ER. Tolerating 5 L after getting fluid bolus. Will continue antibiotics and Tamiflu. Able to answer questions appropriately but is quite fatigued. No family at bedside at the time of my evaluation Subjective Subjective PLOF: IND with all mobility without AD use. HOME: Live with his in a 2-story home with 1 [address]. Pt stays on the ground floor. ASSIST: is home but pt cares for her d/t having a broken ankle. [facility] How much help from another person do you currently need... Turning from your None back to your side while in a flat bed without using bedrails? Moving from lying on None back to sitting on the side of a flat bed without using bedrails? Moving to and from a None bed to a chair ( including a wheelchair)? Standing up from a None chair using your arms? (e.g., wheelchair, bedside chair) Walking in hospital A little room? Climbing 3-5 steps A little with a railing? Mobility Score 22 Mobility Level Hickey Wong Mobility 7 Walk 25 feet or more Mobility Calculator Rehab PT IP Eval Objective Appearance Patient Behavior Appropriate,Cooperative Patient Orientation Person,Place Difficulty following none instructions Speech Pattern Clear Ambulation Patient Able to Yes Ambulate Ambulation Observation IP General Gait Wide Based Gait Pattern Observation Ambulation Distance 20 (feet) Ambulation Assistive None Device Ambulation Ability Supervision/Stand by,Minimal x 1 (25% assist) Balance Ability to Arise Able, uses arms to help Sitting Balance Steady, safe Standing Balance Steady, wide stance Dynamic Sitting Good Balance Ability Dynamic Standing Fair Balance Ability Transfers Bed Transfer Ability Supervision/Stand by Sit to Stand Bed Supervision/Stand by Transfer Ability Rehab PT IP prob,goals,plan Problems Date of Evaluation: 10/10/25 PT IP Problems Transfers,Gait,Balance,Self care,Safety Rehab Potential Rehab Potential Good Plan PT Intervention Plan Transfers,Gait,Balance,Self care,Safety,Therapeutic Exercise PT Plan Frequency Daily Duration Goals Met Discharge Goals Bed Transfer Ability Independent Sit to Stand Chair Independent Transfer Ability Ambulation Assistive Rolling Walker Device Ambulation Distance 75 (feet) Discharge Plan PT Discharge Plan Pt presents slightly below his baseline in ambulation and endurance. Pt able to ambulate in room but was limited by decreased SpO2 and 2 minor LOB. PT recommending pt use RW d/t LOB and some weakness. Pt would benefit from daily PT while at [facility] until goals of IND household level ambulation are achieved. PT recommending PT to address deficits upon d/c. Eval Complexity Eval Charge Codes 82420 - Moderate Complexity PHYSICIAN CERTIFICATION: I certify the specified therapy services for Momo Wu are required, authorized, and reviewed every 30 days.
--- NOTE | 2025-10-10 09:26 | HMH.OTEV ---
OT Evaluation Rehab OT IP Evaluation Start: 10/10/25 08:01 Freq: ONCE Status: Active Protocol: Document 10/10/25 09:03 JUANJOSE (Rec: 10/10/25 09:26 JUANJOSE [id number]) Rehab OT IP Assessment Subjective History Per HPI: HPI narrative: Patient is a 85-year-old male presenting today with generalized weakness altered mental status has had urinary retention and also has had a cough and shortness of breath over the last several days and a fever at home. Had a similar presentation several years ago where he was treated for urinary tract infection at [facility]. Is known to have prostatic hypertrophy. Subjective I have to take care of her. Pt was supine in bed when therapy entered room. Pt agreed to OT eval this AM. Pt orient x3. Pt reported they live with in mx story home, however they do not have to use the upstairs. Pt reported Ind in ADLs and IADLs and also still drive. Pt reported Ind in FM with no use of AD. Pt reported they are not usually on O2. Pt agreed to FM task. Pt went from supine to EOB IND. Pt then completed STS with Ind. Pt then completed FM task of 10 ft with CGA for safety. Pt lost balance briefly, however was able to regain balance and stability. Pt then sat on EOB and went to supine position with IND. Pt left supine in bed with call light and all other needs within reach. Objective Patient Orientation Person,Place,Situation Right Upper WFL Extremity Gross ROM Left Upper Extremity WFL Gross ROM Bed Mobility bed mobility-scooting,bed mobility - supine/sit Transfer Training Sit/Stand Transfer Chair Transfer Contact Guard/Hand Hold Ability Chair Transfer Sit to/from Ambulatory Technique Chair Transfer None Assistive Devices Decrease in No Endurance Rehab OT IP prob,goals,plan Problems Date of Evaluation: 10/10/25 Rehab Potential Rehab Potential Innapropriate for Skilled Therapy Equipment Needs Assistive Devices Rolling / Wheeled Walker Discharge Plan OT Discharge Plan At this time, pt is at baseline in occupational performance and would not benefit from skilled acute OT services and interventions while admitted at [facility]. Once medically stable, pt is able to DC home. Pt could benefit from RW for FM. Eval Complexity Eval Charge Codes 05648 - Moderate Complexity PHYSICIAN CERTIFICATION: I certify the specified therapy services for Momo Pb [place] are required, authorized, and reviewed every 30 days.
--- NOTE | 2025-10-10 09:41 | HMH.PHAAMS2 ---
- Antimicrobial Stewardship Review culture & sensitivity review Stewardship interventions: culture & sensitivity review (PATIENT CURRENTLY ON TAMIFLU, VANCOMYCIN, AND ROCEPHIN. NO GROWTH IN BLD CX. AFEBRILE, WBC 14.6K.)
--- NOTE | 2025-10-10 09:49 | EXP.PULM.CON ---
History of Present Illness History of present illness: Mr. Wu is a 85-year-old male presented to the ER with worsening weakness body aches confusion respiratory distress and pulmonary was called for further evaluation and management. Admits sick contacts. [facility] Disclaimer: The information contained in this section may have been updated after the patient was seen, as this information can be updated by other users. Medical History (Updated 10/10/25 @ 12:19 by Renee Valdez MD) Acute respiratory failure with hypoxia Constipation Remote history of stroke Cholecystitis CVA (cerebral vascular accident) Hyperlipidemia Hypertension Surgical History History of laparoscopic cholecystectomy Family History Other Hypertension Stroke Social History Smoking Status: Current every day smoker tobacco type: pipe second hand exposure: Yes alcohol intake: current alcohol intake frequency: a few times a week substance use type: denies use current occupational status: employed and retired Travel in the last 8 weeks?: None household members: spouse housing: house current occupation: [employer] current occupational exposures/hazards: No caffeine: Yes Have you lived/traveled outside [place] in past 30 days?: No Contact w/someone who lives/traveled outside US past 30 days?: No Exposure to someone with infectious disease in past 14 days?: No Do you have a fever (greater than 100.4 F or 38 C)?: No Have you tested positive for COVID-19?: No Exposed to someone with COVID-19 in past 14 days?: No Do you have a sore throat?: No Do you have a cough?: No Do you have any weakness?: No Do you have any diarrhea?: No Are you experiencing any unusual bleeding?: No Do you have any muscle aches/pain?: No Do you have any abdominal pain?: No Are you experiencing loss of taste or smell?: No Review of Systems Constitutional Constitutional: Reports anorexia, Reports body ache(s) and Reports fatigue Eyes Eyes: Denies eye discharge, Denies dry eyes, Denies irritation and Denies itchy eyes ENT Ears, Nose, Mouth, and Throat: Denies epistaxis, Denies facial pain, Denies lip swelling and Denies throat swelling *Cardiovascular Cardiovascular: Reports dyspnea and Reports dyspnea on exertion *Respiratory Respiratory: Denies change in phlegm color, Reports chest congestion, Reports cough, Reports dyspnea, Reports dyspnea on exertion, Reports excessive phlegm production, Denies hemoptysis, Denies pain on inspiration, Denies pain with cough and Denies wheezing *Gastrointestinal Gastrointestinal: Denies abdominal pain, Denies belching and Denies cramping *Musculoskeletal Musculoskeletal: Reports back pain, Reports myalgias and Reports other (No small joint swelling or Pain) Psychiatric Psychiatric: Denies homicidal ideation and Denies suicidal ideation Endocrine Endocrine: Reports fatigue and Denies heat intolerance Hematologic/Lymphatic Hematologic/Lymphatic: Denies easy bleeding and Denies lymphadenopathy Allergic/Immunologic Allergic/Immunologic: Denies itchy eyes, Denies lip swelling, Denies throat swelling and Denies wheezing Pulmonology Exam Inpatient Vital signs and Labs for Last 24 Hours: Temp Pulse Resp BP Pulse Ox O2 Del Method O2 Flow Rate 97.7 F 91 H 24 164/82 H 91 L Nasal Cannula 3 10/10/25 08:00 10/10/25 09:43 10/10/25 08:00 10/10/25 08:00 10/10/25 09:43 10/10/25 09:43 10/10/25 09:43 Laboratory Results - last 24 hr 10/09/25 13:50: Sodium 120 L, Potassium 3.5, Chloride 94 L, Carbon Dioxide 23, Anion Gap 6.5, BUN 25 H, Creatinine 1.20, Estimated Creat Clear 54, Estimated GFR 58 L, Est GFR ( Amer) 70, Glucose 112 H D, Calcium 7.8 L 10/09/25 22:10: Sodium 121 L, Potassium 3.7, Chloride 94 L, Carbon Dioxide 24, Anion Gap 6.7, BUN 26 H, Creatinine 1.10, Estimated Creat Clear 59, Estimated GFR 64, Est GFR ( Amer) 77, Glucose 122 H, Calcium 7.8 L 10/10/25 01:21: Urine Color Yellow, Urine Appearance Clear, Urine pH 6.0, Ur Specific [place] 1.020, Urine Protein 2+ A, Urine Glucose (UA) Negative, Urine Ketones Negative, Urine Blood 2+ A, Urine Nitrate Negative, Urine Bilirubin Negative, Urine Urobilinogen 0.2, Ur Leukocyte Esterase Negative, Urine RBC 10-20, Ur Squamous Epith Cells 5-10 10/10/25 04:42: WBC 14.6 H, RBC 3.74 L, Hgb 11.8 L, Hct 33.9 L, MCV 90.6, MCH 31.6 H, MCHC 34.8, RDW 12.8, Plt Count 209, MPV 10.0, Neut % (Auto) 81.3 H, Lymph % (Auto) 10.5, [place] % (Auto) 7.7, Eos % (Auto) 0.1, Baso % (Auto) 0.1, Neut # (Auto) 11.9 H, Lymph # (Auto) 1.5, [place] # (Auto) 1.1 H, Eos # (Auto) 0.0, Baso # (Auto) 0.0, Sodium 123 L, Potassium 4.0, Chloride 97 L, Carbon Dioxide 24, Anion Gap 6.0, BUN 21 H, Creatinine 1.00, Estimated Creat Clear 64, Estimated GFR 71, Est GFR ( Amer) 86, Glucose 113 H, Calcium 8.2 L, Magnesium 1.9 D, Total Bilirubin 0.3, AST 74 H, ALT 30, Alkaline Phosphatase 64, Total Protein 6.1 L, Albumin 3.2 L, Globulin 2.9, Albumin/Globulin Ratio 1.1 I & O for Labs for Last 24 Hours: Intake & Output 10/07/25 10/08/25 10/09/25 10/10/25 23:59 23:59 23:59 23:59 Intake Total 4050 / 4250 1540 / 1540 120 / 120 Output Total 4745 / 4745 1000 / 1000 1900 / 1900 Balance -695 / -495 540 / 540 -1780 / -1780 Weight 180 lb 181 lb 1.6 oz 178 lb 2.489 oz Microbiology Reports for the Last 24 Hours: Microbiology 10/08/25 09:23 Blood Blood Culture - Preliminary NO GROWTH AFTER 24 HOURS 10/08/25 09:20 Blood Blood Culture - Preliminary NO GROWTH AFTER 24 HOURS Constitutional: Present severe distress Head: Present normocephalic and atraumatic ENT: Present normal exam, normal oropharynx and mucous membranes moist Neck: Present normal inspection and full ROM Respiratory: Present respiratory distress, rhonchi, diminished air movement and able to speak in complete sentences; Absent prolonged expiratory phase or wheezes Cardiac: Present S1/S2, Tachycardia and radial pulses present GI: Present soft and distention; Absent tenderness or guarding Skin: Present intact; Absent cyanosis or jaundice Neuro: Present alert, awake and oriented x 3 Extremities: Present normal inspection; Absent clubbing or cyanosis Psychiatric: Present normal affect and cooperative Meds Home Medications and Allergies Home Medications ?Medication ?Instructions ?Recorded ?Confirmed ?Type amlodipine 5 mg tablet 5 mg PO BID 09/07/19 10/08/25 History ascorbic acid (vitamin C) 1,000 mg 1,000 mg PO DAILY 09/07/19 10/08/25 History tablet aspirin 325 mg tablet 325 mg PO DAILY 09/07/19 10/08/25 History cyanocobalamin (vitamin B-12) 2,500 mcg PO DAILY 09/07/19 10/08/25 History 2,500 mcg tablet lisinopril 10 mg tablet 10 mg PO BID 09/07/19 10/08/25 History glroxjta-dhn-avkmd acid 0.4 1 each PO DAILY 09/07/19 10/08/25 History mg-lycopene 300 mcg-lutein 250 mcg tablet simvastatin 10 mg tablet 10 mg PO HS 09/07/19 10/08/25 History alfuzosin 10 mg tablet,extended 10 mg PO BID 11/21/24 10/08/25 History release 24 hr (Uroxatral) levothyroxine 88 mcg tablet 88 mcg PO DAILYDM 11/22/24 10/08/25 History omega-3 fatty acids 1,000 mg 1,000 mg PO DAILY 10/08/25 10/08/25 History capsule New Prescriptions to Start Prescriptions: Allergies Allergy/AdvReac Type Severity Reaction Status Date / Time No Known Allergies Allergy Verified 06/17/25 10:34 Results Laboratory Findings 10/10/25 04:42 10/10/25 04:42 Abnormal lab findings: Abnormal Labs 10/08/25 10/08/25 10/08/25 09:20 09:30 09:48 WBC 15.0 H RBC 3.66 L Hgb 11.8 L Hct 33.5 L MCH 32.2 H Neut % (Auto) 84.5 H Lymph % (Auto) 6.0 L Neut # (Auto) 12.7 H [place] # (Auto) 1.3 H VBG pH 7.42 H VBG pCO2 33.5 L VBG pO2 85.1 H VBG HCO3 21.1 L VBG Total CO2 22.1 L VBG O2 Saturation 97.3 H VBG Base Excess -3.4 L Sodium 123 L Potassium Chloride 92 L Carbon Dioxide BUN Estimated GFR 58 L Glucose Calcium Magnesium AST 61 H NT-Pro-B Natriuret Pep 3150 H Total Protein Albumin Urine Protein 1+ A Urine Blood Influenza A Untype (PCR) Detected A 10/08/25 10/08/25 10/09/25 16:20 22:57 08:00 WBC 12.9 H RBC 3.76 L Hgb 12.0 L Hct 34.2 L MCH 31.9 H Neut % (Auto) 86.1 H Lymph % (Auto) 8.4 L Neut # (Auto) 11.1 H [place] # (Auto) VBG pH VBG pCO2 VBG pO2 VBG HCO3 VBG Total CO2 VBG O2 Saturation VBG Base Excess Sodium 119 L 122 L 119 L Potassium 3.3 L D 3.2 L Chloride 93 L 90 L 93 L Carbon Dioxide 19 L 21 L BUN 22 H 22 H Estimated GFR 58 L Glucose 148 H D Calcium 7.7 L 8.3 L 7.8 L Magnesium 1.5 L AST 73 H NT-Pro-B Natriuret Pep Total Protein 6.2 L Albumin 3.4 L D Urine Protein Urine Blood Influenza A Untype (PCR) 10/09/25 10/09/25 10/10/25 13:50 22:10 01:21 WBC RBC Hgb Hct MCH Neut % (Auto) Lymph % (Auto) Neut # (Auto) [place] # (Auto) VBG pH VBG pCO2 VBG pO2 VBG HCO3 VBG Total CO2 VBG O2 Saturation VBG Base Excess Sodium 120 L 121 L Potassium Chloride 94 L 94 L Carbon Dioxide BUN 25 H 26 H Estimated GFR 58 L Glucose 112 H D 122 H Calcium 7.8 L 7.8 L Magnesium AST NT-Pro-B Natriuret Pep Total Protein Albumin Urine Protein 2+ A Urine Blood 2+ A Influenza A Untype (PCR) 10/10/25 04:42 WBC 14.6 H RBC 3.74 L Hgb 11.8 L Hct 33.9 L MCH 31.6 H Neut % (Auto) 81.3 H Lymph % (Auto) Neut # (Auto) 11.9 H [place] # (Auto) 1.1 H VBG pH VBG pCO2 VBG pO2 VBG HCO3 VBG Total CO2 VBG O2 Saturation VBG Base Excess Sodium 123 L Potassium Chloride 97 L Carbon Dioxide BUN 21 H Estimated GFR Glucose 113 H Calcium 8.2 L Magnesium AST 74 H NT-Pro-B Natriuret Pep Total Protein 6.1 L Albumin 3.2 L Urine Protein Urine Blood Influenza A Untype (PCR) Assessment and Plan *Assessment and plan (1) Acute respiratory failure with hypoxia: Status: Acute Category: Medical Code(s): J96.01 - Acute respiratory failure with hypoxia (2) Influenza A: Status: Acute Category: Medical Code(s): J10.1 - Influenza due to other identified influenza virus with other respiratory manifestations (3) Pneumonia: Status: Acute Category: Medical Code(s): J18.9 - Pneumonia, unspecified organism Plan Mr. Wu is a 85-year-old male presented to the ER with worsening weakness body aches confusion respiratory distress and pulmonary was called for further evaluation and management. Admits sick contacts. Febrile with a Tmax of 102.0 upon admission. Improving with no more febrile episodes in the last 24 hours. Neutrophilic predominant leukocytosis relatively stable. Respiratory viral PCR panel positive for influenza A pneumonia. Blood gas upon admission did not show any evidence of hypercarbic respiratory failure. Chest x-ray from 10/09/2025 bilateral worsening diffuse interstitial infiltrates, significantly worsened from admission x-ray from 10/08/2025. Echocardiogram from October normal LVEF, LV diastolic dysfunction noted. RV size and function within normal limits. Repeat echocardiogram pending. Currently receiving vancomycin and ceftriaxone and Tamiflu. Blood cultures no growth at 24 hours. Chest x-ray from this morning continues show bilateral patchy infiltrates, worsening. Plan: -Continue Tamiflu for 5 days pending clinical improvement -Antibiotics can be weaned to ceftriaxone and azithromycin pending final sputum culture results, sputum induction today -Initiate Advair 500 twice daily along with DuoNebs 4 times daily as needed -Follow-up with CRP and LDH -Follow with final echocardiogram report. Volume optimization as per primary team and cardiology # Thank you for involving pulmonary in this patient care. Will continue to follow.
--- NOTE | 2025-10-10 09:52 | XR_ITS ---
PROCEDURE INFORMATION: Exam: XR Chest Exam date and time: 10/10/2025 10:10 AM Age: 85 years old Clinical indication: Cough; Additional info: Pnm TECHNIQUE: Imaging protocol: Radiologic exam of the chest. Views: 1 view. COMPARISON: CR XR CHEST PORTABLE 10/09/2025 7:05 AM FINDINGS: Lungs: Diffuse patchy opacities in both lungs likely represent edema or infection, stable. Pleural spaces: Unremarkable. No pleural effusion. No pneumothorax. Heart/Mediastinum: Unremarkable. No cardiomegaly. Bones/joints: Unremarkable. IMPRESSION: Diffuse patchy opacities in both lungs likely represent edema or infection, stable.
[2025-10-10 10:12] LABS: C-Reactive Protein 164.7 mg/L (0-4)
[2025-10-10] MEDS: FUROSEMIDE 40MG/4ML VIAL 40 MG IV (10:16)
[2025-10-10] MEDS: FINASTERIDE 5MG TABLET 5 MG PO (10:16)
[2025-10-10] MEDS: VANCOMYCIN/WATER FOR INJ (PEG) 1.5 GM/300 ML PIGGYBACK IV (10:18)
--- NOTE | 2025-10-10 11:38 | EXP.ACUTE.PN ---
Subjective *Date: 10/10/25 *Time: 13:38 Interval history: On 3 L this morning on rounds. Does not appear in acute distress. White count showing improvement. Tolerating p.o. intake. Unfortunately had to have catheter replaced last night due to urinary retention. [place] discomfort, had 200 cc of output. Catheter placed with additional liter of output Medical Exam Vital signs and Labs for Last 24 Hours: Vital Signs Temp Pulse Resp BP Pulse Ox O2 Del Method O2 Flow Rate 10/10/25 11:10 Nasal Cannula 3 10/10/25 09:43 91 H 10/10/25 09:43 91 H 10/10/25 09:43 91 L Nasal Cannula 3 10/10/25 09:05 Nasal Cannula 3 10/10/25 09:00 91 L Nasal Cannula 3 10/10/25 08:00 97.7 F 93 H 24 164/82 H 91 L Nasal Cannula 3 10/10/25 08:00 98 H 10/10/25 06:56 Nasal Cannula 10/10/25 06:19 91 L Nasal Cannula 3 10/10/25 06:19 107 H 10/10/25 06:19 110 H 10/10/25 05:28 Nasal Cannula 10/10/25 04:00 100 H 10/10/25 04:00 98.2 F 89 23 161/75 H 92 L 10/10/25 03:01 22 149/70 H 10/10/25 03:00 Nasal Cannula 10/10/25 02:00 21 155/76 H 10/10/25 01:01 29 H 166/74 H 10/10/25 01:00 Nasal Cannula 4 10/10/25 00:00 97 H 10/10/25 00:00 98.6 F 83 23 153/65 H 92 L Nasal Cannula 3 10/09/25 23:07 Nasal Cannula 4 10/09/25 21:21 Nasal Cannula 4 10/09/25 20:00 95 Nasal Cannula 4 10/09/25 20:00 100 H 10/09/25 20:00 98.7 F 91 H 24 147/73 H 92 L Nasal Cannula 3 10/09/25 19:04 98 H 10/09/25 19:04 102 H 10/09/25 19:04 91 L Nasal Cannula 4 10/09/25 18:39 Nasal Cannula 3 10/09/25 17:00 Nasal Cannula 4 10/09/25 16:01 87 19 142/63 H 92 L Nasal Cannula 4 10/09/25 16:00 98.7 F 10/09/25 16:00 94 H 10/09/25 15:03 Nasal Cannula 4 10/09/25 15:00 86 22 156/69 H 93 L Nasal Cannula 4 10/09/25 14:14 84 18 10/09/25 14:14 89 10/09/25 14:14 84 10/09/25 14:00 85 17 143/68 H 93 L Nasal Cannula 5 10/09/25 13:10 Nasal Cannula 5 10/09/25 13:00 73 18 133/57 L 96 Nasal Cannula 5 10/09/25 12:14 102 H 10/09/25 12:02 98.2 F 54 L 20 140/59 L 92 L Nasal Cannula 5 Intake and Output 10/09/25 10/10/25 10/10/25 23:59 07:59 15:59 Intake Total 310 / 1540 120 / 120 Output Total 0 / 1000 1900 / 1900 Balance 310 / 540 -1900 / -1780 120 / -1780 Intake: Intake, Oral Amount 210 / 1040 120 / 120 Intake, Total IV Amount 100 / 500 Ceftriaxone Sodium 2 gm In 0.9 100 / 100 % Sodium Chloride 100 ml @ 200 mls/hr IV Q24H [facility] Rx#:[id number] Output: Output, Urine Amount 0 / 1000 Output, Urine Amount (Catheter) 1900 / 1900 [place] 1900 / 1900 Other: Number of Unmeasured Voids 1 0 Number of Bowel Movements 1 1 Weight 80.81 kg Patient Weight 10/10/25 23:59 Weight 80.81 kg Laboratory Results - last 24 hr 10/09/25 13:50: Sodium 120 L, Potassium 3.5, Chloride 94 L, Carbon Dioxide 23, Anion Gap 6.5, BUN 25 H, Creatinine 1.20, Estimated Creat Clear 54, Estimated GFR 58 L, Est GFR ( Amer) 70, Glucose 112 H D, Calcium 7.8 L 10/09/25 22:10: Sodium 121 L, Potassium 3.7, Chloride 94 L, Carbon Dioxide 24, Anion Gap 6.7, BUN 26 H, Creatinine 1.10, Estimated Creat Clear 59, Estimated GFR 64, Est GFR ( Amer) 77, Glucose 122 H, Calcium 7.8 L 10/10/25 01:21: Urine Color Yellow, Urine Appearance Clear, Urine pH 6.0, Ur Specific [place] 1.020, Urine Protein 2+ A, Urine Glucose (UA) Negative, Urine Ketones Negative, Urine Blood 2+ A, Urine Nitrate Negative, Urine Bilirubin Negative, Urine Urobilinogen 0.2, Ur Leukocyte Esterase Negative, Urine RBC 10-20, Ur Squamous Epith Cells 5-10 10/10/25 04:42: WBC 14.6 H, RBC 3.74 L, Hgb 11.8 L, Hct 33.9 L, MCV 90.6, MCH 31.6 H, MCHC 34.8, RDW 12.8, Plt Count 209, MPV 10.0, Neut % (Auto) 81.3 H, Lymph % (Auto) 10.5, [place] % (Auto) 7.7, Eos % (Auto) 0.1, Baso % (Auto) 0.1, Neut # (Auto) 11.9 H, Lymph # (Auto) 1.5, [place] # (Auto) 1.1 H, Eos # (Auto) 0.0, Baso # (Auto) 0.0, Sodium 123 L, Potassium 4.0, Chloride 97 L, Carbon Dioxide 24, Anion Gap 6.0, BUN 21 H, Creatinine 1.00, Estimated Creat Clear 64, Estimated GFR 71, Est GFR ( Amer) 86, Glucose 113 H, Calcium 8.2 L, Magnesium 1.9 D, Total Bilirubin 0.3, AST 74 H, ALT 30, Alkaline Phosphatase 64, Lactate Dehydrogenase 424, C-Reactive Protein 164.7 H, Total Protein 6.1 L, Albumin 3.2 L, Globulin 2.9, Albumin/Globulin Ratio 1.1 I & O for Labs for Last 24 Hours: Intake & Output 10/07/25 10/08/25 10/09/25 10/10/25 23:59 23:59 23:59 23:59 Intake Total 4050 / 4250 1540 / 1540 120 / 120 Output Total 4745 / 4745 1000 / 1000 1900 / 1900 Balance -695 / -495 540 / 540 -1780 / -1780 Weight 81.647 kg 82.146 kg 80.81 kg Microbiology Reports for the Last 24 Hours: Microbiology 10/08/25 09:23 Blood Blood Culture - Preliminary NO GROWTH AFTER 48 HOURS 10/08/25 09:20 Blood Blood Culture - Preliminary NO GROWTH AFTER 48 HOURS Constitutional: Present no acute distress, average body habitus, chronically ill appearing and cooperative Head: Present atraumatic and normocephalic ENT: Present normal exam Respiratory: Present rhonchi, crackles and normal respiratory effort; Absent wheezes Cardiac: Present Reg Rate and Rhythm GI: Present soft and normal bowel sounds; Absent distention or tenderness Extremities: Present normal inspection and full ROM Skin: Present intact; Absent erythema Neuro: Present Grossly Intact, alert, awake, oriented x 3 and moves all extremities Assessment and Plan *Assessment and plan (1) Severe sepsis: Status: Acute Category: Medical Code(s): A41.9 - Sepsis, unspecified organism; R65.20 - Severe sepsis without septic shock (2) Acute hyponatremia: Status: Acute Category: Medical Code(s): E87.1 - Hypo-osmolality and hyponatremia (3) Influenza A: Status: Acute Category: Medical Code(s): J10.1 - Influenza due to other identified influenza virus with other respiratory manifestations (4) Pneumonia: Status: Acute Category: Medical Code(s): J18.9 - Pneumonia, unspecified organism (5) Hypertension: Status: Chronic Qualifiers: Hypertension type: primary hypertension Qualified Code(s): I10 - Essential (primary) hypertension Category: Medical Code(s): I10 - Essential (primary) hypertension (6) Hyperlipidemia: Status: Chronic Qualifiers: Hyperlipidemia type: mixed hyperlipidemia Qualified Code(s): E78.2 - Mixed hyperlipidemia Category: Medical Code(s): E78.5 - Hyperlipidemia, unspecified Plan 85-year-old male who presents with weakness, some mild confusion this morning, having some bodyaches as well along with shortness of breath. Found to have new oxygen requirement and positive for flu. Imaging positive for pneumonia. Meeting sepsis criteria with leukocytosis, tachycardia, tachypnea, and infection. Admitted to stepdown level of care for further management. Discussed case with ER physician, request admission for further treatment of sepsis and flu pneumonia. I decided to admit for further care. Continue on Tamiflu, de-escalating antibiotics. Wean oxygen as tolerated. Prognosis improving. Pulmonology evaluating today. Problems addressed as follows: Acute hypoxic respiratory failure Severe sepsis Flu A pneumonia - White count 15, hemoglobin 11.8. Patient febrile to 101, heart rate 94, respiratory rate 30 on admission - White count 14.6 today. Hemoglobin 11.8. Afebrile over the last 24 hours. - Continue supplemental oxygen as needed for goal sats greater 90%. Currently on 3 L. - Pulmonology evaluated today, discussed case, in light of respiratory swab was negative for MRSA, will discontinue vancomycin. Continue Tamiflu and ceftriaxone at this time. Will complete 5 days of therapy. Blood cultures negative at 24 hours Continue Tamiflu 75 mg twice daily for flu component for 5 days - Repeat CBC, CMP, magnesium ordered for the morning - DuoNebs every 6 hours scheduled Hyponatremia Hypokalemia - sodium has fluctuated from 119-123 for the past 24 hours. Sodium 123 this morning, chloride 97. Potassium 4.0. Magnesium 1.9. Kidney function remains normal with BUN 21, creatinine 1 -Will give an additional dose of Lasix 40 mg IV once today. - Continue sodium chloride supplementation 500 mg 3 times a day p.o. - Repeat BMP every 12 hours to monitor sodium correction, monitor for improvement between 8 to 10 mEq/day. Hypothyroid: Continue levothyroxine 88 mcg/day, TSH ordered for the morning Hypertension: Chronic, holding amlodipine and lisinopril in the setting of sepsis. Normotensive today. Urinary retention/BPH: Unable to successfully remove catheter. Patient had urinary retention again yesterday. Takes alfuzosin at home. On tamsulosin as formulary conversion. Will also initiate finasteride. Catheter in place, will need urology follow-up after discharge. New finding of elevated BNP of 3100, concern for component of previously undiagnosed CHF. Echo obtained, formal read pending. Consider cards referral/consult if findings worsening. - Repeat Lasix 40 mg IV once today. - Chart review shows echo obtained in October of this year, normal BiV systolic function noted at that time. Full code Prophylaxis Lovenox Cardiac diet
[2025-10-10] MEDS: CALCIUM CARBONATE 500MG CHEWTAB 500 MG PO ×2 (12:10→20:13)
--- NOTE | 2025-10-10 12:41 | SW/DCPLANNER ---
Addendum entered by Angeli Luis 10/10/25 14:25: [facility] is able to accept patient. Sharon Soto Original Note: Spoke with patient regarding home health services once he is medically stable and ready for discharge. Patient stated that he is interested in home health and that he does not have a preference in what agency i send his information to. I will fax patient's information to [facility] and will update once i hear back if they can accept patient or not. Sharon Soto
--- NOTE | 2025-10-10 17:37 | PC.NURSE ---
A&OX4. PT HAS TOLERATED OXYGEN WELL TODAY. STARTED OFF ON 4L NC AND IS CURRENTLY ON 2L NC. RESPIRATIONS REGULAR AND UNLABORED. EXPIRATORY WHEEZES NOTED THROUGHOUT. NO COUGH NOTED. HEART RATE REGULAR. NO EDEMA NOTED. HAND COLD REDUCTION ROLLER EQUAL. ACTIVE BOWEL SOUNDS HEARD IN ALL 4 QUADRANTS. SOFT AND NONTENDER ABDOMEN. PT HAS HAD 1 BM NOTED TODAY. BALTAZAR CATH IN PLACE WITH CLEAR YELLOW URINE NOTED. FAMILY DID COME VISIT PT THIS AFTERNOON AND WAS UPDATED ON PLAN OF CARE. NO QUESTIONS OR CONCERNS VOICED. PT RECEIVED LINEN CHANGE THIS SHIFT BUT REFUSED A BATH. DENIES ANY PAIN. PT IS ABLE TO TRANSFER FROM BED TO CHAIR WITH STANDBY ASSISTANCE. PT HAS BEEN UP IN THE CHAIR FOR ALL MEALS. PT HAS AMBULATED SOME IN HIS ROOM. HE HAS ATE BETTER TODAY COMPARED TO YESTERDAY. PT HAS USED INCENTIVE SPIROMETER 10 TIMES EVERY HOUR WHILE AWAKE. BED IN LOWEST POSITION. CALL LIGHT WITHIN REACH. VSS. PT HAS REMAINED AFEBRILE THIS SHIFT.
[2025-10-10 18:54] LABS: Anion Gap 9.5 mEq/L (5-15); Blood Urea Nitrogen 22 mg/dl (9-20); Calcium 8.3 mg/dl (8.4-10.2); Carbon Dioxide 25 mmol/L (22.0-30.0); Chloride 96 mmol/L (98-107); Creatinine Clearance Estimated 58 mL/min (50-200); Creatinine,Serum 1.10 mg/dl (0.66-1.25); Estimated Glomerular Filt Rate 64 ml/min (>60); GFR (African American) 77 ML/MIN (>60); Glucose 140 mg/dl (74-100); Potassium 3.5 mmoL/L (3.5-5.1); Sodium 127 mmol/L (136-145)
[2025-10-10] MEDS: TAMSULOSIN 0.4MG CAPSULE 0.8 MG PO (20:13)
[2025-10-10] MEDS: PANTOPRAZOLE 40MG TABLET 40 MG PO (20:13)
[2025-10-10] MEDS: ALUMINUM/MAGNESIUM/SIMETHICONE 30ML UDC 30 ML PO (23:37)
[2025-10-11] VITALS (11 sets, daily range): BP systolic 140–162; BP diastolic 71–84; PULSE 69–130; RESP 16–28; TEMP 36.6–37.1; O2SAT 87–96; BMI 25.6
--- NOTE | 2025-10-11 00:24 | PC.NURSE ---
Pt having short episodes where he is converting into afib RVR on telemetry. Pt quickly converts back to NSR with rate 80s/90s. Lashawn Young APRN notified. NNO at this time, ctm.
[2025-10-11 05:31] LABS: Hematocrit 33.0 % (42.0-52.0); Hemoglobin 11.7 g/dL (14.1-18.0); Immature Granulocytes % 0.5 %; Mean Corpuscular HGB Conc 35.5 g/dL (31.8-35.4); Mean Corpuscular Hemoglobin 31.9 pg (27.0-31.2); Mean Corpuscular Volume 89.9 fl (80-94); Nucleated Red Blood Cells % 0 %; Platelet Count 226 K/mm3 (142-424); Red Blood Count 3.67 M/mm3 (4.60-6.20); Red Cell Distribution Width-SD 42.5 fL; White Blood Count 13.2 K/mm3 (4.8-10.8)
[2025-10-11 05:33] LABS: Albumin Level 3.3 g/dl (3.5-5.0); Chloride 97 mmol/L (98-107); Potassium 3.6 mmoL/L (3.5-5.1); Sodium 126 mmol/L (136-145)
[2025-10-11 05:36] LABS: Alanine Aminotransferase 34 U/L (12-78); Albumin/Globulin Ratio 1.1 (1.1-1.8); Alkaline Phosphatase 65 U/L (38-126); Anion Gap 5.6 mEq/L (5-15); Aspartate Amino Transferase 65 U/L (17-59); Bilirubin,Total 0.3 mg/dl (0.2-1.3); Blood Urea Nitrogen 20 mg/dl (9-20); Carbon Dioxide 27 mmol/L (22.0-30.0); Creatinine Clearance Estimated 54 mL/min (50-200); Creatinine,Serum 1.20 mg/dl (0.66-1.25); Estimated Glomerular Filt Rate 58 ml/min (>60); GFR (African American) 70 ML/MIN (>60); Globulin 3.0 g/dL (1.3-3.2); Total Protein,Serum 6.3 g/dl (6.3-8.2)
[2025-10-11 05:37] LABS: Calcium 8.5 mg/dl (8.4-10.2); Glucose 136 mg/dl (74-100)
[2025-10-11] MEDS: LEVOTHYROXINE 88MCG (0.088MG) TAB 88 MCG PO (06:55)
--- NOTE | 2025-10-11 09:10 | PC.NURSE ---
PT IS 87% ON ROOM AIR WHILE AT REST
[2025-10-11] MEDS: FINASTERIDE 5MG TABLET 5 MG PO (09:13)
[2025-10-11] MEDS: CALCIUM CARBONATE 500MG CHEWTAB 500 MG PO (09:13)
[2025-10-11] MEDS: FUROSEMIDE 40MG/4ML VIAL 40 MG IV (09:13)
[2025-10-11] MEDS: OSELTAMIVIR PHOSPHATE 6MG/ML ORAL SUSP 60ML 30 MG PO ×2 (09:17→21:25)
--- NOTE | 2025-10-11 09:17 | HMH.PHAAMS2 ---
- Antimicrobial Stewardship Review 48 hour timeout review Stewardship interventions: 48 hour timeout review, reviewed - no change Comments: BLOOD CX NO GROWTH AT 48 HR, SPUTUM UNCOLLECTED. PATIENT CURRENTLY ON TAMIFLU (INFLUENZA) AND ROCEPHIN (PNEUMONIA). AFEBRILE OVER 24 HR, WBC DOWN SLIGHTLY TODAY TO 13.2 K/mm3, RECOMMEND 5 DAYS OF ANTIBIOTICS (ON DAY 4/5) AND TAMIFLU (ON DAY 4/5). culture & sensitivity review Stewardship interventions: culture & sensitivity review, reviewed - no change Comments: BLOOD CX NO GROWTH AT 48 HR, SPUTUM UNCOLLECTED. PATIENT CURRENTLY ON TAMIFLU (INFLUENZA) AND ROCEPHIN (PNEUMONIA). AFEBRILE OVER 24 HR, WBC DOWN SLIGHTLY TODAY TO 13.2 K/mm3
[2025-10-11] MEDS: SODIUM CHLORIDE 1,000MG TABLET 500 MG PO ×2 (09:19→12:46)
--- NOTE | 2025-10-11 09:44 | P.PN_ITS ---
Subjective *Date: 10/11/25 *Time: 10:52 Interval history: No acute respiratory vents overnight. Patient admits stable respiratory symptoms Pulmonology Exam Inpatient Vital signs and Labs for Last 24 Hours: Temp Pulse Resp BP Pulse Ox O2 Del Method O2 Flow Rate 98.1 F 123 H 28 H 162/84 H 87 L Nasal Cannula 2 10/11/25 08:00 10/11/25 09:01 10/11/25 08:00 10/11/25 08:00 10/11/25 09:01 10/11/25 08:00 10/11/25 08:00 Laboratory Results - last 24 hr 10/10/25 04:42: Lactate Dehydrogenase 424, C-Reactive Protein 164.7 H 10/10/25 18:09: Sodium 127 L, Potassium 3.5, Chloride 96 L, Carbon Dioxide 25, Anion Gap 9.5, BUN 22 H, Creatinine 1.10, Estimated Creat Clear 58, Estimated GFR 64, Est GFR ( Amer) 77, Glucose 140 H D, Calcium 8.3 L 10/11/25 04:47: WBC 13.2 H, RBC 3.67 L, Hgb 11.7 L, Hct 33.0 L, MCV 89.9, MCH 31.9 H, MCHC 35.5 H, RDW 12.8, Plt Count 226, MPV 9.7, Neut % (Auto) 77.5, Lymph % (Auto) 12.3, [place] % (Auto) 9.5 H, Eos % (Auto) 0.0 L, Baso % (Auto) 0.2, Neut # (Auto) 10.3 H, Lymph # (Auto) 1.6, [place] # (Auto) 1.3 H, Eos # (Auto) 0.0, Baso # (Auto) 0.0, Sodium 126 L, Potassium 3.6, Chloride 97 L, Carbon Dioxide 27, Anion Gap 5.6, BUN 20, Creatinine 1.20, Estimated Creat Clear 54, Estimated GFR 58 L, Est GFR ( Amer) 70, Glucose 136 H, Calcium 8.5, Total Bilirubin 0.3, AST 65 H, ALT 34, Alkaline Phosphatase 65, Total Protein 6.3, Albumin 3.3 L , Globulin 3.0, Albumin/Globulin Ratio 1.1 Temp Pulse Resp BP Pulse Ox O2 Del Method O2 Flow Rate 97.7 F 91 H 24 164/82 H 91 L Nasal Cannula 3 10/10/25 08:00 10/10/25 09:43 10/10/25 08:00 10/10/25 08:00 10/10/25 09:43 10/10/25 09:43 10/10/25 09:43 Laboratory Results - last 24 hr 10/09/25 13:50: Sodium 120 L, Potassium 3.5, Chloride 94 L, Carbon Dioxide 23, Anion Gap 6.5, BUN 25 H, Creatinine 1.20, Estimated Creat Clear 54, Estimated G FR 58 L, Est GFR ( Amer) 70, Glucose 112 H D, Calcium 7.8 L 10/09/25 22:10: Sodium 121 L, Potassium 3.7, Chloride 94 L, Carbon Dioxide 24, Anion Gap 6.7, BUN 26 H, Creatinine 1.10, Estimated Creat Clear 59, Estimated GFR 64, Est GFR ( Amer) 77, Glucose 122 H, Calcium 7.8 L 10/10/25 01:21: Urine Color Yellow, Urine Appearance Clear, Urine pH 6.0, Ur Specific [place] 1.020, Urine Protein 2+ A, Urine Glucose (UA) Negative, Urine Ketones Negative, Urine Blood 2+ A, Urine Nitrate Negative, Urine Bilirubin Negative, Urine Urobilinogen 0.2, Ur Leukocyte Esterase Negative, Urine RBC 10- 20, Ur Squamous Epith Cells 5-10 10/10/25 04:42: WBC 14.6 H, RBC 3.74 L, Hgb 11.8 L, Hct 33.9 L, MCV 90.6, MCH 31.6 H, MCHC 34.8, RDW 12.8, Plt Count 209, MPV 10.0, Neut % (Auto) 81.3 H, Lymph % (Auto) 10.5, [place] % (Auto) 7.7, Eos % (Auto) 0.1, Baso % (Auto) 0.1, Neut # (Auto) 11.9 H, Lymph # (Auto) 1.5, [place] # (Auto) 1.1 H, Eos # (Auto) 0.0, Baso # (Auto) 0.0, Sodium 123 L, Potassium 4.0, Chloride 97 L, Carbon Dioxide 24, Anion Gap 6.0, BUN 21 H, Creatinine 1.00, Estimated Creat Clear 64, Estimated GFR 71, Est GFR ( Amer) 86, Glucose 113 H, Calcium 8.2 L, Magnesium 1.9 D, Total Bilirubin 0.3, AST 74 H, ALT 30, Alkaline Phosphatase 64, Total Protein 6.1 L, Albumin 3.2 L, Globulin 2.9, Albumin/Globulin Ratio 1.1 I & O for Labs for Last 24 Hours: Intake & Output 10/08/25 10/09/25 10/10/25 10/11/25 23:59 23:59 23:59 23:59 Intake Total 4050 / 4250 1540 / 1540 1240 / 1240 270 / 270 Output Total 4745 / 4745 1000 / 1000 4375 / 4375 550 / 550 Balance -695 / -495 540 / 540 -3135 / -3135 -280 / -280 Weight 180 lb 181 lb 1.6 oz 178 lb 2.489 oz 178 lb 12.718 oz Intake & Output 10/07/25 10/08/25 10/09/25 10/10/25 23:59 23:59 23:59 23:59 Intake Total 4050 / 4250 1540 / 1540 120 / 120 Output Total 4745 / 4745 1000 / 1000 1900 / 1900 Balance -695 / -495 540 / 540 -1780 / -1780 Weight 180 lb 181 lb 1.6 oz 178 lb 2.489 oz Microbiology Reports for the Last 24 Hours: Microbiology 10/08/25 09:23 Blood Blood Culture - Preliminary NO GROWTH AFTER 48 HOURS 10/08/25 09:20 Blood Blood Culture - Preliminary NO GROWTH AFTER 48 HOURS Microbiology 10/08/25 09:23 Blood Blood Culture - Preliminary NO GROWTH AFTER 24 HOURS 10/08/25 09:20 Blood Blood Culture - Preliminary NO GROWTH AFTER 24 HOURS Constitutional: Present severe distress Head: Present normocephalic and atraumatic ENT: Present normal exam, normal oropharynx and mucous membranes moist Neck: Present normal inspection and full ROM Respiratory: Present respiratory distress, rhonchi, diminished air movement and able to speak in complete sentences; Absent prolonged expiratory phase or wheezes Cardiac: Present S1/S2, Tachycardia and radial pulses present GI: Present soft and distention; Absent tenderness or guarding Skin: Present intact; Absent cyanosis or jaundice Neuro: Present alert, awake and oriented x 3 Extremities: Present normal inspection; Absent clubbing or cyanosis Psychiatric: Present normal affect and cooperative Assessment and Plan *Assessment and plan (1) Acute respiratory failure with hypoxia: Status: Acute Category: Medical Code(s): J96.01 - Acute respiratory failure with hypoxia (2) Influenza A: Status: Acute Category: Medical Code(s): J10.1 - Influenza due to other identified influenza virus with other respiratory manifestations (3) Pneumonia: Status: Acute Category: Medical Code(s): J18.9 - Pneumonia, unspecified organism Plan Mr. Wu is a 85-year-old male presented to the ER with worsening weakness body aches confusion respiratory distress and pulmonary was called for further evaluation and management. Admits sick contacts. Febrile with a Tmax of 102.0 upon admission. Improving with no more febrile episodes in the last 24 hours. Neutrophilic predominant leukocytosis relatively stable. Respiratory viral PCR panel positive for influenza A pneumonia. Blood gas upon admission did not show any evidence of hypercarbic respiratory failure. Chest x-ray from 10/09/2025 bilateral worsening diffuse interstitial infi ltrates, significantly worsened from admission x-ray from 10/08/2025. Echocardiogram from October normal LVEF, LV diastolic dysfunction noted. RV size and function within normal limits. Repeat echocardiogram pending. Currently receiving vancomycin and ceftriaxone and Tamiflu. Blood cultures no growth at 24 hours. Repeat chest x-ray continues show bilateral patchy infiltrates, worsening. Interval update: No acute respiratory vents overnight.Stable leukocytosis. Echocardiogram normal LVEF at 60%. Diastolic dysfunction. Small anterior pericardial effusion with no evidence of tamponade. Continued needing oxygen supplementation, saturating 88 to 92% on 2 L, increased to 3 L nasal cannula this morning. Improved from prior, steady needing 4 L. CRP elevated at 164. Chest x-ray from this morning relatively stable from yesterday continue to show prominent right upper lobe left upper lobe airspace disease along with lower lobe minimal patchy interstitial opacities Plan: -Continue oxygen supplementation to maintain O2 saturation goal of 90% and above, currently at rest needing 3 L to maintain O2 saturation above 90% and above. Will perform walk testing prior to discharge. -Continue Tamiflu for 10 days -Antibiotics can be weaned to ceftriaxone and azithromycin pending final sputum culture results, sputum induction today - Continue Advair 500 twice daily along with DuoNebs 4 times daily as needed - Volume optimization as per primary team and cardiology, currently receiving Lasix 40 mg IV daily # Thank you for involving pulmonary in this patient care. Will continue to follow.
--- NOTE | 2025-10-11 10:12 | XR_ITS ---
FINAL REPORT TECHNIQUE: Single view chest CLINICAL HISTORY: INCREASING SHORTNESS OF BREATH/ PNUMONIA COMPARISON: 1 day prior FINDINGS: A single view of the chest was obtained. The heart and mediastinum are within normal limits. There are bilateral residual opacities which are unchanged. Peripheral bilateral upper lobe opacities are slightly worse. There is no effusion or pneumothorax. IMPRESSION: Worsening peripheral upper lobe opacities which could represent pneumonia. Recommend continued follow-up. Reviewed, Interpreted and Dictated by Becky Ashton MD Transcribed by Zaria Narvaez Authenticated and [facility]
[2025-10-11] MEDS: SODIUM CHLORIDE 3% 15ML NEB 3 ML IH (11:05)
--- NOTE | 2025-10-11 11:42 | PC.NURSE ---
pt arrived from ICU in wheelchair. A/O x4, lopez draining clear urine, 02 @2l NC
--- NOTE | 2025-10-11 11:48 | ECG_ITS ---
APPROVED REPORT Exam: Resting ECG HR:86 bpm ECG Measurements Heart Rate 86 AXES OK 154 P 36 QRSd 95 QRS 51 QT 337 T 74 QTc 381 Conclusion SINUS RHYTHM WITH OCCASIONAL SUPRAVENTRICULAR PREMATURE COMPLEXES BORDERLINE ECG UNCONFIRMED REPORT Electronically signed by : Abdullahi Smart MD 10/12/2025 11:39:30
--- NOTE | 2025-10-11 15:50 | P.PN_ITS ---
Subjective *Date: 10/11/25 *Time: 16:19 Interval history: Patient feels slightly better today, however desaturated on walk test today. Increased shortness of breath. Worsening opacities on CXR. Still requiring new 3 L nasal cannula. Meeting sepsis criteria still. Continue IV antibiotics and diuresis, follow-up sputum, blood cultures. Exam Data for Last 24 hours Vital signs and Labs for Last 24 Hours: Temp Pulse Resp BP Pulse Ox O2 Del Method O2 Flow Rate 98.7 F 93 H 22 140/71 94 L Nasal Cannula 3 10/11/25 12:43 10/11/25 12:43 10/11/25 12:43 10/11/25 12:43 10/11/25 12:43 10/11/25 12:43 10/11/25 12:43 Laboratory Results - last 24 hr 10/10/25 18:09: Sodium 127 L, Potassium 3.5, Chloride 96 L, Carbon Dioxide 25, Anion Gap 9.5, BUN 22 H, Creatinine 1.10, Estimated Creat Clear 58, Estimated GFR 64, Est GFR ( Amer) 77, Glucose 140 H D, Calcium 8.3 L 10/11/25 04:47: WBC 13.2 H, RBC 3.67 L, Hgb 11.7 L, Hct 33.0 L, MCV 89.9, MCH 31.9 H, MCHC 35.5 H, RDW 12.8, Plt Count 226, MPV 9.7, Neut % (Auto) 77.5, Lymph % (Auto) 12.3, [place] % (Auto) 9.5 H, Eos % (Auto) 0.0 L, Baso % (Auto) 0.2, Neut # (Auto) 10.3 H, Lymph # (Auto) 1.6, [place] # (Auto) 1.3 H, Eos # (Auto) 0.0, Baso # (Auto) 0.0, Sodium 126 L, Potassium 3.6, Chloride 97 L, Carbon Dioxide 27, Anion Gap 5.6, BUN 20, Creatinine 1.20, Estimated Creat Clear 54, Estimated GFR 58 L, Est GFR ( Amer) 70, Glucose 136 H, Calcium 8.5, Total Bilirubin 0.3, AST 65 H, ALT 34, Alkaline Phosphatase 65, Total Protein 6.3, Albumin 3.3 L , Globulin 3.0, Albumin/Globulin Ratio 1.1 I & O for Last 24 hours: Intake & Output 10/08/25 10/09/25 10/10/25 10/11/25 23:59 23:59 23:59 23:59 Intake Total 4050 / 4250 1540 / 1540 1240 / 1240 510 / 510 Output Total 4745 / 4745 1000 / 1000 4375 / 4375 1999 / 1999 Balance -695 / -495 540 / 540 -3135 / -3135 -1490 / -1490 Weight 81.647 kg 82.146 kg 80.81 kg 81.1 kg Microbiology Reports for the Last 24 Hours: Microbiology 10/09/25 11:20 Sputum - Expectorated Sputum Gram Stain - Final Constitutional Constitutional: no acute distress *Routine HEENT Exam Head: Present normocephalic Eye: Present EOMI and PERRL ENT: Present mucous membranes moist *Routine Neck Exam Neck: Present supple; Absent lymphadenopathy *Routine Respiratory Exam Respiratory: Present CTA bilaterally *Routine Cardiovascular Exam Cardiovascular: Present RRR *Routine Abdominal Exam Abdominal: Present soft *Routine Extremities Exam Extremities: Present edema; Absent cyanosis or clubbing *Routine Skin Exam Skin: Present warm; Absent rash *Routine Neurological Exam Neurological: Present alert and oriented X3 Assessment and Plan *Assessment and plan (1) Severe sepsis: Status: Acute Category: Medical Code(s): A41.9 - Sepsis, unspecified organism; R65.20 - Severe sepsis without septic shock (2) Acute hyponatremia: Status: Acute Category: Medical Code(s): E87.1 - Hypo-osmolality and hyponatremia (3) Influenza A: Status: Acute Category: Medical Code(s): J10.1 - Influenza due to other identified influenza virus with other respiratory manifestations (4) Pneumonia: Status: Acute Category: Medical Code(s): J18.9 - Pneumonia, unspecified organism (5) Hypertension: Status: Chronic Qualifiers: Hypertension type: primary hypertension Qualified Code(s): I10 - Essential (primary) hypertension Category: Medical Code(s): I10 - Essential (primary) hypertension (6) Hyperlipidemia: Status: Chronic Qualifiers: Hyperlipidemia type: mixed hyperlipidemia Qualified Code(s): E78.2 - Mixed hyperlipidemia Category: Medical Code(s): E78.5 - Hyperlipidemia, unspecified Plan Momo Peter is a 85-year-old male who presented with weakness, mild confusion, shortness of breath. Found to have new oxygen requirement and positive for flu. Imaging positive for multifocal pneumonia. Met sepsis criteria with leukocytosis, tachycardia, tachypnea, and infection. #Acute hypoxic respiratory failure #Sepsis #Flu A pneumonia ? Presented with weakness, shortness of breath, and found to have multifocal pneumonia on CXR. Initial WBC 15.0, with tachypnea, tachycardia, fever up to 102 Fahrenheit. Initially requiring 4 L nasal cannula. ? Today, patient feels better. Weaned to 3 L nasal cannula. Did desaturate to 88% on walk test with shortness of breath. At this time, high risk of outpatient decompensation. ? WBC improved to 13.2, still tachycardic with intermittent tachypnea. ? Discussed with pulmonology, continue ceftriaxone 2 g daily, azithromycin 250 mg daily, Tamiflu (for total of 10 days). Continue diuresis as below. ? Pulmonology started Advair twice daily today. DuoNebs as needed. ? Repeat CXR revealing slightly worsening multifocal opacities. Could be pul monary edema versus pneumonia. Continue to monitor. ? Follow-up sputum, blood cultures. - Repeat CBC, CMP, magnesium ordered for the morning. ? Wean O2 as tolerated. ? Follow-up morning CRP. #HFpEF exacerbation #Hyponatremia ? Presented with shortness of breath, peripheral edema, and patchy interstitial markings on CXR. BNP 3150. ? ECHO 10/10/2025 revealedNormal biventricular systolic function, small anterior pericardial effusion without signs of tamponade. ? Continue IV Lasix 40 mg daily?sodium improving. 126 today. Initially 119. Discontinued sodium chloride tablet. ? Continues to have lower extremity edema, though this could be related to home amlodipine use. ? Diuresing well, net -4.1 L. ? Follow-up morning CMP. Hypothyroid: Continue levothyroxine 88 mcg/day, TSH ordered for the morning Hypertension: Chronic, holding amlodipine. Restarted home 10 mg twice daily. Urinary retention/BPH: Unable to successfully remove catheter. Takes alfuzosin at home. On tamsulosin as formulary conversion. Will also initiate finasteride. Catheter in place, will need urology follow-up after discharge with Raheem. Full code Prophylaxis Lovenox Cardiac diet
[2025-10-11] MEDS: AZITHROMYCIN 250MG TABLET 250 MG PO (17:04)
--- NOTE | 2025-10-11 18:33 | PC.NURSE ---
pt resting in bed, call light in reach, 02@2L NC, A/oX4, x1 assist
[2025-10-11] MEDS: TAMSULOSIN 0.4MG CAPSULE 0.8 MG PO (21:24)
[2025-10-11] MEDS: LISINOPRIL 10MG TABLET 10 MG PO (21:24)
[2025-10-11] MEDS: PANTOPRAZOLE 40MG TABLET 40 MG PO (21:24)
[2025-10-12] VITALS: BP 155/79; PULSE 90; RESP 17; TEMP 36.8; O2SAT 90
[2025-10-12 04:00] VITALS: PULSE 97; RESP 17; TEMP 36.4; O2SAT 92; BMI 25.0
[2025-10-12 06:07] LABS: Hematocrit 30.4 % (42.0-52.0); Immature Granulocytes % 0.4 %; Mean Corpuscular HGB Conc 33.9 g/dL (31.8-35.4); Mean Corpuscular Hemoglobin 31.0 pg (27.0-31.2); Mean Corpuscular Volume 91.6 fl (80-94); Nucleated Red Blood Cells % 0 %; Platelet Count 236 K/mm3 (142-424); Red Blood Count 3.32 M/mm3 (4.60-6.20); Red Cell Distribution Width-SD 43.8 fL; White Blood Count 11.8 K/mm3 (4.8-10.8)
[2025-10-12 06:17] LABS: Hemoglobin 10.5 g/dL (14.1-18.0)
[2025-10-12 06:38] LABS: Albumin Level 3.1 g/dl (3.5-5.0); Chloride 98 mmol/L (98-107); Sodium 128 mmol/L (136-145)
[2025-10-12 06:39] LABS: Magnesium 1.8 mg/dl (1.6-2.3); Potassium 3.5 mmoL/L (3.5-5.1)
[2025-10-12 06:41] LABS: Alanine Aminotransferase 33 U/L (12-78); Albumin/Globulin Ratio 1.0 (1.1-1.8); Alkaline Phosphatase 63 U/L (38-126); Anion Gap 4.5 mEq/L (5-15); Aspartate Amino Transferase 58 U/L (17-59); Bilirubin,Total 0.3 mg/dl (0.2-1.3); Blood Urea Nitrogen 21 mg/dl (9-20); Carbon Dioxide 29 mmol/L (22.0-30.0); Creatinine Clearance Estimated 52 mL/min (50-200); Creatinine,Serum 1.20 mg/dl (0.66-1.25); Estimated Glomerular Filt Rate 58 ml/min (>60); GFR (African American) 70 ML/MIN (>60); Globulin 3.0 g/dL (1.3-3.2); Total Protein,Serum 6.1 g/dl (6.3-8.2)
[2025-10-12 06:42] LABS: Calcium 8.3 mg/dl (8.4-10.2); Glucose 94 mg/dl (74-100)
[2025-10-12 07:11] LABS: Thyroid Stimulating Hormone 3.71 uIU/mL (0.465-4.68)
[2025-10-12 07:56] LABS: C-Reactive Protein 188.3 mg/L (0-4)
[2025-10-12 08:00] VITALS: BP 142/62; PULSE 98; RESP 17; TEMP 36.6; O2SAT 90
[2025-10-12] MEDS: AZITHROMYCIN 250MG TABLET 250 MG PO (08:24)
[2025-10-12] MEDS: LEVOTHYROXINE 88MCG (0.088MG) TAB 88 MCG PO (08:24)
[2025-10-12] MEDS: ASPIRIN EC 81MG TABLET 81 MG PO (08:24)
[2025-10-12] MEDS: LISINOPRIL 10MG TABLET 10 MG PO (08:25)
[2025-10-12] MEDS: FUROSEMIDE 40MG/4ML VIAL 40 MG IV (08:25)
[2025-10-12] MEDS: SPIRONOLACTONE 25MG TABLET 25 MG PO (08:25)
[2025-10-12] MEDS: FINASTERIDE 5MG TABLET 5 MG PO (08:25)
[2025-10-12] MEDS: OSELTAMIVIR PHOSPHATE 6MG/ML ORAL SUSP 60ML 30 MG PO (08:31)
--- NOTE | 2025-10-12 09:13 | HMH.PHAAMS2 ---
- Antimicrobial Stewardship Review culture & sensitivity review Stewardship interventions: culture & sensitivity review, reviewed - no change Comments: BLOOD CX NO GROWTH AT 48 HR, SPUTUM PENDING. PATIENT CURRENTLY ON TAMIFLU (INFLUENZA) AND ROCEPHIN/AZITHROMYCIN(PNEUMONIA). AFEBRILE OVER 24 HR, WBC CONTINUES TO TREND DOWN, DOWN TO TO 11.8 K/mm3
[2025-10-12 09:31] LABS: Procalcitonin 0.221 ng/mL (0.0-2.0)
--- NOTE | 2025-10-12 11:32 | EXP.DC.SUM ---
General Admission date:: 10/08/25 HPI HPI HPI: Mr. Peter is an 85-year-old male who states that for the past day or 2 he has felt more short of breath, developed cough, head weakness, body aches, mild confusion today noted by his family. He was brought in this morning for the symptoms. Also noted to have some urinary retention. Concern for possible UTI as they state he had an episode previously treated at with similar symptoms and turned out to be a UTI. On workup in the ER, found to be hypoxic with leukocytosis. Meeting sepsis criteria. Respiratory swab positive for flu. Chest imaging showing pneumonia. Medicine consulted for treatment of respiratory failure and pneumonia. Quite fatigued on my evaluation after arriving to the floor. In mild to moderate distress. Afebrile at this time. Was febrile on arrival to the ER. Tolerating 5 L after getting fluid bolus. Will continue antibiotics and Tamiflu. Able to answer questions appropriately but is quite fatigued. No family at bedside at the time of my evaluation Hospital Course Hospital Course Hospital Course: Momo Peter is a 85-year-old male who presented with weakness, mild confusion, shortness of breath. Found to have new oxygen requirement and positive for flu. Imaging positive for multifocal pneumonia. Met sepsis criteria with leukocytosis, tachycardia, tachypnea, and infection. #Acute hypoxic respiratory failure #Sepsis #Flu A pneumonia, would likely bacterial superimposition ? Presented with weakness, shortness of breath, and found to have multifocal pneumonia on CXR. Initial WBC 15.0, with tachypnea, tachycardia, fever up to 102 Fahrenheit. Initially requiring 4 L nasal cannula. ? Clinically improved with Tamiflu, ceftriaxone, azithromycin, Lasix diuresis. Weaned to 3 L nasal cannula, which is a new requirement. Saturating 88% on room air at rest. ? Discussed with pulmonology, recommended cefdinir for total of 7 days and Tamiflu for total of 10 days. Started Advair 500. ? Discharged with cefdinir 300 mg twice daily for 3 more days, Tamiflu 30 mg twice daily for 6 more days. ? Will follow-up with pulmonology within 1 week. #Acute HFpEF, new onset #Hyponatremia ? Presented with shortness of breath, peripheral edema, and patchy interstitial markings on CXR. BNP 3150. ? ECHO 10/10/2025 revealed normal biventricular systolic function, small anterior pericardial effusion without signs of tamponade. ? Clinically improved with IV Lasix, spironolactone diuresis. Net -4.2 L. Creatinine stable at 1.2. ? Continues to have lower extremity edema, though this could be related to home amlodipine use. ? Discharged with Lasix 40 mg, spironolactone 25 mg. Hypothyroid: Continue levothyroxine 88 mcg/day, TSH ordered for the morning Hypertension: Continue home lisinopril, amlodipine. Urinary retention/BPH: Unable to successfully remove catheter without significant postvoid residual. Takes alfuzosin at home, started finasteride [address], will need urology follow-up after discharge with Maciel. Referred to Dr. Ann for further evaluation and management. Total time spent on discharge: 33 minutes on chart review, counseling, documentation, and direct care with patient. Exam Data for Last 24 hours Vital signs and Labs for Last 24 Hours: Temp Pulse Resp BP Pulse Ox O2 Del Method O2 Flow Rate 98 F 98 H 17 142/62 H 90 L Nasal Cannula 3 10/12/25 08:00 10/12/25 08:00 10/12/25 08:00 10/12/25 08:00 10/12/25 08:00 10/12/25 08:00 10/12/25 04:00 Laboratory Results - last 24 hr 10/12/25 04:43: WBC 11.8 H, RBC 3.32 L, Hgb 10.5 L D, Hct 30.4 L, MCV 91.6, MCH 31.0, MCHC 33.9, RDW 13.2, Plt Count 236, MPV 10.1, Neut % (Auto) 76.1, Lymph % (Auto) 13.9, [place] % (Auto) 9.5 H, Eos % (Auto) 0.0 L, Baso % (Auto) 0.1, Neut # (Auto) 9.0 H, Lymph # (Auto) 1.6, [place] # (Auto) 1.1 H, Eos # (Auto) 0.0, Baso # (Auto) 0.0, Sodium 128 L, Potassium 3.5, Chloride 98, Carbon Dioxide 29, Anion Gap 4.5 L, BUN 21 H, Creatinine 1.20, Estimated Creat Clear 52, Estimated GFR 58 L, Est GFR ( Amer) 70, Glucose 94 D, Calcium 8.3 L, Magnesium 1.8, Total Bilirubin 0.3, AST 58, ALT 33, Alkaline Phosphatase 63, C-Reactive Protein 188.3 H, Total Protein 6.1 L, Albumin 3.1 L, Globulin 3.0, Albumin/Globulin Ratio 1.0 L, Procalcitonin 0.221, TSH 3.71 I & O for Last 24 hours: Intake & Output 10/09/25 10/10/25 10/11/25 10/12/25 23:59 23:59 23:59 23:59 Intake Total 1540 / 1540 1240 / 1240 970 / 1210 720 / 720 Output Total 1000 / 1000 4375 / 4375 2000 / 1999 650 / 650 Balance 540 / 540 -3135 / -3135 -1030 / -790 70 / 70 Weight 82.146 kg 80.81 kg 81.1 kg 79.107 kg Microbiology Reports for the Last 24 Hours: Microbiology 10/08/25 09:23 Blood Blood Culture - Preliminary NO GROWTH AFTER 4 DAYS 10/08/25 09:20 Blood Blood Culture - Preliminary NO GROWTH AFTER 4 DAYS 10/09/25 11:20 Sputum - Expectorated Sputum Gram Stain - Final Constitutional Constitutional: no acute distress and chronically ill appearing *Routine HEENT Exam Head: Present normocephalic Eye: Present EOMI and PERRL ENT: Present mucous membranes moist *Routine Neck Exam Neck: Present supple; Absent lymphadenopathy *Routine Respiratory Exam Respiratory: Present CTA bilaterally *Routine Cardiovascular Exam Cardiovascular: Present RRR *Routine Abdominal Exam Abdominal: Present soft *Routine Extremities Exam Extremities: Present edema; Absent cyanosis or clubbing *Routine Skin Exam Skin: Present warm; Absent rash *Routine Neurological Exam Neurological: Present alert and oriented X3 Results Data Completed and Pending Labs on day of discharge: Labs from last 24 hours 10/12/25 04:43 WBC 11.8 H RBC 3.32 L Hgb 10.5 L D Hct 30.4 L MCV 91.6 MCH 31.0 MCHC 33.9 RDW 13.2 Plt Count 236 MPV 10.1 Neut % (Auto) 76.1 Lymph % (Auto) 13.9 [place] % (Auto) 9.5 H Eos % (Auto) 0.0 L Baso % (Auto) 0.1 Neut # (Auto) 9.0 H Lymph # (Auto) 1.6 [place] # (Auto) 1.1 H Eos # (Auto) 0.0 Baso # (Auto) 0.0 Sodium 128 L Potassium 3.5 Chloride 98 Carbon Dioxide 29 Anion Gap 4.5 L BUN 21 H Creatinine 1.20 Estimated Creat Clear 52 Estimated GFR 58 L Est GFR ( Amer) 70 Glucose 94 D Calcium 8.3 L Magnesium 1.8 Total Bilirubin 0.3 AST 58 ALT 33 Alkaline Phosphatase 63 C-Reactive Protein 188.3 H Total Protein 6.1 L Albumin 3.1 L Globulin 3.0 Albumin/Globulin Ratio 1.0 L Procalcitonin 0.221 TSH 3.71 Preliminary micro results at discharge 10/08/25 09:23 Blood Culture - Preliminary Blood NO GROWTH AFTER 4 DAYS 10/08/25 09:20 Blood Culture - Preliminary Blood NO GROWTH AFTER 4 DAYS DS: Diagnosis Discharge Diagnosis (1) Severe sepsis: Status: Acute Code(s): A41.9 - Sepsis, unspecified organism; R65.20 - Severe sepsis without septic shock (2) Acute hyponatremia: Status: Acute Code(s): E87.1 - Hypo-osmolality and hyponatremia (3) Influenza A: Status: Acute Code(s): J10.1 - Influenza due to other identified influenza virus with other respiratory manifestations (4) Pneumonia: Status: Acute Code(s): J18.9 - Pneumonia, unspecified organism (5) Hypertension: Status: Chronic Code(s): I10 - Essential (primary) hypertension Qualifiers: Hypertension type: primary hypertension Qualified Code(s): I10 - Essential (primary) hypertension (6) Hyperlipidemia: Status: Chronic Code(s): E78.5 - Hyperlipidemia, unspecified Qualifiers: Hyperlipidemia type: mixed hyperlipidemia Qualified Code(s): E78.2 - Mixed hyperlipidemia Meds Home Medications and Allergies Home Medications ?Medication ?Instructions ?Recorded ?Confirmed ?Type amlodipine 5 mg tablet 5 mg PO BID 09/07/19 10/08/25 History ascorbic acid (vitamin C) 1,000 mg 1,000 mg PO DAILY 09/07/19 10/08/25 History tablet aspirin 325 mg tablet 325 mg PO DAILY 09/07/19 10/08/25 History cyanocobalamin (vitamin B-12) 2,500 mcg PO DAILY 09/07/19 10/08/25 History 2,500 mcg tablet lisinopril 10 mg tablet 10 mg PO BID 09/07/19 10/08/25 History vejqymzb-jdp-titmp acid 0.4 1 each PO DAILY 09/07/19 10/08/25 History mg-lycopene 300 mcg-lutein 250 mcg tablet simvastatin 10 mg tablet 10 mg PO HS 09/07/19 10/08/25 History alfuzosin 10 mg tablet,extended 10 mg PO BID 11/21/24 10/08/25 History release 24 hr (Uroxatral) levothyroxine 88 mcg tablet 88 mcg PO DAILYDM 11/22/24 10/08/25 History omega-3 fatty acids 1,000 mg 1,000 mg PO DAILY 10/08/25 10/08/25 History capsule cefdinir 300 mg capsule 300 mg PO BID 3 days #6 caps 10/12/25 Rx finasteride 5 mg tablet 5 mg PO DAILY 30 days #30 tabs 10/12/25 Rx fluticasone 500 mcg-salmeterol 50 1 inh inhalation BIDRT 30 days #0 10/12/25 Rx mcg/dose blistr powdr for ea inhalation furosemide 40 mg tablet (Lasix) 40 mg PO DAILY #30 tabs 10/12/25 Rx oseltamivir 6 mg/mL oral 30 mg (5 mL) PO BID 6 days #60 mL 10/12/25 Rx suspension (Tamiflu) spironolactone 25 mg tablet 25 mg PO DAILY 30 days #30 tabs 10/12/25 Rx New Prescriptions to Start Prescriptions: cefdinir Mendoza Stevenson finasterMendoza Fletcher furosemide [Lasix] Mendoza Stevenson oseltamivir [Tamiflu] Mendoza Stevenson spironolactone Mendoza Stevenson Allergies Allergy/AdvReac Type Severity Reaction Status Date / Time No Known Allergies Allergy Verified 06/17/25 10:34 Discharge Plan Disposition Patient Disposition: Home, Self-Care Condition: Fair Discharge Order Discharge Orders: Discharge Order (Routine); Ordered 10/12/25 Ordered By: Mendoza Stevenson Follow up Plan Follow up with: Nadia Hernandez APRN [Nurse Practitioner, Cardiology] - 10/24/25 1:00 pm John Duran MD [Primary Care Provider, Medical] - 10/18/25 8:30 am Mendoza Ann MD [Staff Physician, Urology] - 10/24/25 9:15 am Renee Valdez MD [Physician, Pulmonology] - 10/18/25 1:00 pm Prescriptions/Medication Reconciliation: New spironolactone 25 mg Tablet 25 mg PO DAILY 30 Days Qty: 30 0RF fluticasone propion-salmeterol 500-50 mcg/dose Blister With Device 1 inh inhalation BIDRT 30 Days Qty: 0 0RF finasteride 5 mg Tablet 5 mg PO DAILY 30 Days Qty: 30 0RF oseltamivir [Tamiflu] 6 mg/mL Suspension For Reconstitution 30 mg PO BID 6 Days Qty: 60 0RF furosemide [Lasix] 40 mg tablet 40 mg PO DAILY Qty: 30 0RF cefdinir 300 mg capsule 300 mg PO BID 3 Days Qty: 6 0RF Continued ascorbic acid (vitamin C) 1,000 MG tablet 1,000 mg PO DAILY aspirin 325 MG tablet 325 mg PO DAILY simvastatin 10 MG tablet 10 mg PO HS amlodipine 5 MG tablet 5 mg PO BID lisinopril 10 MG tablet 10 mg PO BID vcqhbsur-qyp-RA-lycopen-lutein 1 EACH tablet 1 each PO DAILY cyanocobalamin (vitamin B-12) 2,500 MCG tablet 2,500 mcg PO DAILY alfuzosin [Uroxatral] 10 mg Tablet Extended Release 24 Hr 10 mg PO BID levothyroxine 88 mcg tablet 88 mcg PO DAILYDM omega-3 fatty acids 1,000 mg Capsule 1,000 mg PO DAILY Problem Reconciliation Problems Reviewed?: Yes Patient Discharge Instructions Patient Instructions: DI for Influenza in Adults, DI for Respiratory Failure, DI for Hypoxia, Stop Light Pneumonia Print Language: Kyrgyz Providers Primary Care Provider: John Duran Admit Provider: Norman Flores Attending Provider: Norman Flores
--- NOTE | 2025-10-13 09:55 | SW/DCPLANNER ---
Spoke with patient on the phone. Patient stated that he is doing well. Patient stated that he is aware of his upcoming appointments. Patient stated that he was able to get his new medicine picked up from [facility] pharmacy. Patient stated that he has no concerns or questions at this time. Sharon Soto
== END 2025-10-12 13:13 | disposition home or self-care (01) | DRG 871 ==
LOC: ER 11:10 → ICU 12:13 → 2ND 10-11 11:20
PROVIDERS: Internal Medicine Pulmonary Disease; Nurse Practitioner Acute Care; Student in an Organized Health Care Education/Training Program; Admitting Provider Internal Medicine Adolescent Medicine; Emergency Provider Student in an Organized Health Care Education/Training Program; PCP Family Medicine; Visit Provider Internal Medicine Adolescent Medicine
DX: A41.9 Sepsis, unspecified organism (principal); I50.31 Acute diastolic (congestive) heart failure; J10.00 Influenza due to other identified influenza virus with unspecified type of pneumonia; J96.01 Acute respiratory failure with hypoxia; J15.9 Unspecified bacterial pneumonia; E87.1 Hypo-osmolality and hyponatremia; G93.40 Encephalopathy, unspecified; R65.20 Severe sepsis without septic shock; I11.0 Hypertensive heart disease with heart failure; E03.9 Hypothyroidism, unspecified; N40.1 Benign prostatic hyperplasia with lower urinary tract symptoms; R33.8 Other retention of urine; E78.2 Mixed hyperlipidemia; Z79.82 Long term (current) use of aspirin; Z79.890 Hormone replacement therapy; Z86.73 Personal history of transient ischemic attack (TIA), and cerebral infarction without residual deficits; F17.290 Nicotine dependence, other tobacco product, uncomplicated; E86.0 Dehydration; E87.6 Hypokalemia
CPT/HCPCS: 36415; 51702; 51798; 71045; 80048; 80053; 81001; 82803; 83615; 83735; 83880; 84145; 84443; 84484; 85025; 86140; 87040; 87070; 87154; 87205; 87636; 89220; 93005; 93306; 94640; 94760; 94761; 97162; 97166; 97530; 99285; J0131; J0696; J1650; J1938; J2543; J3375; J3475; J7120

== ENCOUNTER 2025-10-17 12:00 | Outpatient (CLI) | payer MEDICARE, BC, SELFPAY ==
--- OUTSIDE RECORDS SUMMARY | 2025-10-18 12:33 | XMS_ITS | Clinical Summary ---
[facility] Address [address] [place] [address] Care Team Providers Care Certified Pesticide Applicator Name Role Phone Jorje Duran MD Primary [...] Take 325 mg by mouth Daily. Active [place]-3 Fatty Acids (fish oil) 1000 MG capsule [...] - 200 mg/dL 10/31/2021 9:20 AM EST [facility] Triglycerides 41 0 - 150 mg/dL 10/31/2021 9:20 AM EST [facility] HDL Cholesterol 46 40 - 60 mg/dL 10/31/2021 9:20 AM EST [facility] LDL Cholesterol 40 0 - 100 mg/dL 10/31/2021 9:20 AM EST [facility] VLDL Cholesterol 11 5 - 40 mg/dL 10/31/2021 9:20 AM EST [facility] LDL/HDL Ratio 0.93 10/31/2021 9:20 AM EST [facility] Blood Venipuncture / Unknown 10/31/2021 8:02 AM EST 10/31/2021 8:38 AM EST [facility] - 10/31/2021 9:20 AM EST Cholesterol [...] Henry APRN LAB BLOOD ORDERABLES Final Result [facility]
[address] [place] [address], from Last 3 Months or Most Recently Relevant to Health Maintenance Insurance MEDICARE A & B Member Subscriber Plan / Payer (Ef fective 2007-Present) Name:Momo Wu Member ID:[id number] Relation to Subscriber:Self Name:Momo Wu Subscriber ID:[id number] Payer ID:[id number] Group ID:Not on file Type:Not on file Address: [address] Advance Directives * CPR (Attempt to [...] of Kin (If No Surrogate) Care Teams Certified Pesticide Applicator Relationship Specialty Start Date End Date Jorje Duran MD [address] [place] [address] PCP - General Family Medicine 10/30/21
--- OUTSIDE RECORDS SUMMARY | 2025-10-18 12:33 | XMS_ITS | Continuity of Care Document ---
[facility] Organization [facility] Address [address] [place] [address] Assessment No assessment recorded. Plan of Treatment Reminders Order Date Submit Date Provider Last Modified By Organization Details Last Modified Time Details Appointments None recorded. Lab rapid flu (A+B) 2024 025 [facility], [address] [place] [address], [id number], 14:29:10 rapid SARS CoV + SARS CoV 2 Ag, QL IA, respiratory specimen 2024 [facility], [address] [place] [address], [id number], 14:29:10 Referral None recorded. Procedures None recorded. Surgeries None recorded. Imaging None recorded. Medication Orders benzonatate 100 mg capsule 2024 025 [facility], [address] [place], [address], 5 05:01:29 dexamethaso ne sodium phosphate 4 mg/mL injection solution 2024 025 [email or web address] Not available 14:41:41 Patient TargetsNo targets recorded. Patient InstructionsNo instructions recorded. Reason for Referral None Reported. Results Created Date Observation Date Name Description Value Unit Range Abnormal Flag Note LastModifiedBy Organization Detail LastModifiedTime 10/06/20 25 10/06/2025 rapid flu (A+B) Flu negati ve Not Available [address], [address], 10/06/2025 13:21:03 10/06/20 25 10/06/2025 rapid flu (A+B) Type Both A & B Not Available [address], [address], 10/06/2025 13:21:03 10/06/20 25 10/06/2025 rapid SARS CoV + SARS CoV 2 Ag, QL IA, respi rator y speci men SARS CoV antigen Negati ve Not Available [address], [address], 10/06/2025 13:21:23 Result Notes None recorded. Problems Name Problem SNOMED Code Status Onset Date Resolution Date Notes Provider Name and Address Organization Details Recorded Time Large prostate 965132596 Active 2021 Polina Stears null, [place] - [facility] 2 09:56:09 Hypothyroidism 20225984 Active 2021 Polina Stears null, [place] - [facility] 2 09:56:27 Hypertensive disorder 80380410 Active 2021 Polina Stears null, [place] - [facility] 2 09:56:43 Hypercholester olemia 32834451 Active 2021 Polina Stears null, [place] - [...] completed Not Available Not Available Not Available furosemide 40 mg tablet TAKE ONE TABLET BY MOUTH EVERY DAY active Not Available Not Available No t Available doxycycline hyclate 100 mg capsule Take [...] Not Available Not Available No t Available spironolact one 25 mg tablet TAKE ONE TABLET BY MOUTH EVERY DAY active Not [...] day by oral route for 5 days. 10/18 completed Not Available Not Available Not Available levothyroxi ne 125 mcg tablet TAKE 1 [...] completed Not Available Not Available Not Available cefdinir 300 mg capsule TAKE ONE CAPSULE BY MOUTH TWICE DAILY FOR 3 DAYS -- FINISH ALL MEDICINE -- active Not Available Not Available No t Available fluticasone propionate 50 mcg/actuati on nasal spray,suspe nsion SPRAY ONE (1) SPRAY EVERY DAY BY INTRANASA L ROUTE. active Not Available Not Available No t Available finasteride 5 mg tablet TAKE ONE TABLET BY MOUTH EVERY DAY active Not [...] Not Available Not Available No t Available oseltamivir 6 mg/mL oral suspension TAKE 1 TEASPOONF UL (5 ML) BY MOUTH TWICE DAILY FOR SIX DAYS --SHAKE WELL BEFORE USE-- active Not Available Not Available No t [...] Updated DateTime 5 177.8 cm 27.6 kg/m2 38958.8 4 g 98.5 [degF] 88 /min 96 [...] Or The Highest Degree You Have Received? [id number] Information not available 08/05/2022 Have There Been Any Changes To Your Family Or Social Situation? No Information not available 08/05/2022 What Is The Fluoride Status Of Your Home? Fluoridated Information not available 08/05/2022 Do You Have A Medical Power Of Publishing Director? No Information not available 08/05/2022 What Was [...] Mental Status Question Answer Note LastModified by COGEON Details LastModified Time Do you feel stressed (tense, restless, nervous, or anxious, or unable to sleep at night)? [id number] Information not available 08/05/2022 Do you have [...] ICD10 Code Diagnosis IMO Codes Diagnosis Note [id number] Russell Buckley APRN [address] [address] 10/06/2025 12:54:49 10/06/2025 14:34:25 Viral upper respiratory tract infection 516597888 J06.9 [id number] monitor temp. Tylenol or Motrin as needed for pain or fever.enco urage fluids, water, Gatorade, power aide, Pedialyte if /tod dler/child warm salt water gargleswar m fluidssore throat lozengessl eep elevatedhu midifier/v aporizerfo llow up immediatel y for new or worsening symptoms or no noticeable improvemen t over the next 48-72 hours Acute cough [id number] 38489783 R05.5 [id number] Health Concerns Section Related Observation LastModified by Organization Detai ls LastModified Time None Recorded Concern Status LastModified by Organization Details LastModified Time None Recorded Payers Encounter Date Sequence Insurance Name Policy Number Policy Stokes Covered Member ID Stokes Member ID Guarantor Name 10/06/2025 2 [place] [id number] Momo Wu [id number] Momo [place] 10/06/2025 1 [place] Momo Wu [id number] Momo Wu Notes Date Note Type Note Provider Name and Address Organization Details Recorded Time 10/06/2025 text/html ROS as noted in the HPI 85 yr old presents for cough, congestion, fever since yesterday morning. Russell Buckley, [employer] SUPERVISOR [address], [place], [address], [place] - [facility] 10/06/2025 14:29:35
--- OUTSIDE RECORDS SUMMARY | 2025-10-18 12:33 | XMS_ITS | Data Portability ---
Author Organization [facility] Address [address] [place] [address] Assessment No assessment recorded. Plan of Treatment Reminders Order Date Submit Date Provider Last Modified By Organization Details Last Modified Time Details Appointments None recorded. Lab rapid flu (A+B) 2024 025 [facility], [address] [place] [address], [phone], 5 14:29:10 rapid SARS CoV + SARS CoV 2 Ag, QL IA, respiratory specimen 2024 025 [facility], [address] [place] [address], [phone], 5 14:29:10 rapid flu (A+B) 2023 024 [facility], [address] [place] [address], [address], 4 10:28:39 rapid SARS CoV + SARS CoV 2 Ag, QL IA, respiratory specimen 2023 024 [facility], [address] [place] [address], [phone], 4 10:28:39 Referral None recorded. Procedures None recorded. Surgeries None recorded. Imaging None recorded. Medication Orders benzonatate 100 mg capsule 2024 025 [facility] [place], [address] [place] [address], [place], [address], 5 05:01:29 dexamethaso ne sodium phosphate 4 mg/mL injection solution 2024 025 cbuckler Not available 5 14:41:41 dexamethaso ne sodium phosphate 4 mg/mL injection solution 2024 025 cbuckler Not available 5 13:10:24 doxycycline hyclate 100 mg capsule 2023 025 [facility] [id number], [address] [place] [address], [address], 5 15:54:45 dexamethaso ne sodium phosphate 4 mg/mL injection solution 2023 024 cbuckler Not available 5 13:10:24 ceftriaxone 1 gram solution for injection 2023 024 [email or web address] Not available 4 09:39:51 amoxicillin 500 mg capsule 2023 024 [facility] [place], [address] [place] [address], [place], [address], 4 10:35:37 Flonase Allergy Relief 50 mcg/actuati on nasal spray,suspe nsion 2023 024 [facility] [place], [address] [place] [address], [place], [address], 4 15:58:51 dexamethaso ne sodium phosphate 4 mg/mL injection solution 2022 023 cbuckler Not available 5 13:10:24 ceftriaxone 1 gram solution for injection 2022 023 [email or web address] Not available 4 09:39:51 doxycycline hyclate 100 mg capsule 2022 023 [id number], [address] [place] [address], [address], 15:54:43 Patient TargetsNo targets recorded. Patient InstructionsNo instructions recorded. Reason for Referral None Reported. Results Created Date Observation Date Name Description Value Unit Range Abnormal Flag Note LastModifiedBy Organization Detail LastModifiedTime 10/04/20 24 10/04/2024 rapid SARS CoV + SARS CoV 2 Ag, QL IA, respi rator y speci men SARS CoV antigen Negati ve Not Available [address], [address], 10/04/2024 10:00:01 10/04/20 24 10/04/2024 rapid flu (A+B) Flu negati ve Not Available [address], [address], 10/04/2024 09:59:48 10/04/20 24 10/04/2024 rapid flu (A+B) Type Both A & B Not Available [address], [address], 10/04/2024 09:59:48 10/06/20 25 10/06/2025 rapid flu (A+B) Flu negati ve Not Available [address], [address], 10/06/2025 13:21:03 10/06/20 25 10/06/2025 rapid flu (A+B) Type Both A & B Not Available [address], [address], 10/06/2025 13:21:03 10/06/20 25 10/06/2025 rapid SARS CoV + SARS CoV 2 Ag, QL IA, respi rator y speci men SARS CoV antigen Negati ve Not Available [facility] [address], [place], [address], 10/06/2025 13:21:23 Result Notes None recorded. Problems Name Problem SNOMED Code Status Onset Date Resolution Date Notes Provider Name and Address Organization Details Recorded Time Large prostate 522201311 Active 2021 Polina Stears null, [place] - [facility] 2 09:56:09 Hypothyroidism 01491153 Active 2021 Polina Stears null, [place] - [facility] 2 09:56:27 Hypertensive disorder 87729429 Active 2021 Polina Stears null, [place] - [facility] 2 09:56:43 Hypercholester olemia 95841182 Active 2021 Polina Stears null, [place] - [...] 4 177.8 cm 18 /min 27.8 kg/m2 42451.9 2 g 97.9 [degF] 68 /min 96 % 132/78 mm[Hg] Polina Stears [place] - [facility] 4 15:49:11 Date Recorded Body height Body mass index (BMI) Body weight Heart rate Oxygen saturation Respiratory rate Pain severity - 0-10 verbal numeric rating [Score] - Reported Systolic And Diastolic Provider Name and Address Organization Details Last Updated DateTime 5 177.8 cm 27 kg/m2 99295.0 7 g 75 /min 95 % 18 /min 0 138/80 mm[Hg] Mariluz Saucedo [place] - [facility] 5 15:58:39 Date Recorded Body height Body mass index (BMI) Body weight Body temperature Heart rate Oxygen saturation Respiratory rate Pain severity - 0-10 verbal numeric rating [Score] - Reported Systolic And Diastolic Provider Name and Address Organization Details Last Updated DateTime 3 177.8 cm 27.1 kg/m2 85650.9 6 g 97.4 [degF] 64 /min 96 % 18 /min 0 128/70 mm[Hg] Mariluz Saucedo [place] - [facility] 3 16:37:50 Date Recorded Body height Body mass index (BMI) Body weight Body temperature Respiratory rate Heart rate Oxygen saturation Systolic And Diastolic Provider Name and Address Organization Details Last Updated DateTime 4 177.8 cm 27.3 kg/m2 04146.5 5 g 97.8 [degF] 18 /min 82 /min 97 % 158/64 mm[Hg] Polina Parish [place] - [facility] 4 09:45:29 Date Recorded Body height Body mass index (BMI) Body weight Body temperature Heart rate Oxygen saturation Respiratory rate Pain severity - 0-10 verbal numeric rating [Score] - Reported Systolic And Diastolic Provider Name and Address Organization Details Last Updated DateTime 5 177.8 cm 27.6 kg/m2 69509.8 4 g 98.5 [degF] 88 /min 96 % 18 /min 0 110/58 mm[Hg] Mariluz Sheryl [place] - [facility] 5 13:21:54 Social History Question Answer Notes LastModified by Organizat ion Details LastModified Time Tobacco Smoking Status Current Every Day Smoker [facility] 08/05/2022 09:58:43 Do You Have An Advance [...] Or The Highest Degree You Have Received? GF18755-4 Information not available 08/05/2022 Have There Been Any Changes To Your Family Or Social Situation? No Information not available 08/05/2022 What Is The Fluoride Status Of Your Home? Fluoridated Information not available 08/05/2022 Do You Have A Medical Power Of Manager Of Medical? No Information not available 08/05/2022 What Was [...] anxious, or unable to sleep at night)? SY3078-3 Information not available 08/05/2022 Do you have [...] or 50 mcg/0.25mL dose 09/27/2021 completed Mariluz myers, [place] - [facility] 03/17/2023 15:25:30 COVID-19, mRNA, LNP-S, PF, 100 mcg/0.5mL dose or 50 mcg/0.25mL dose 10/24/2020 completed Mariluz Saucedo null, [place] - [facility] 03/17/2023 15:25:30 Hep A, adult 10/14/2018 completed Mariluz myers, [place] - [facility] 03/17/2023 15:25:30 Past Encounters Encounter ID Performer Location Encounter Start Date Encounter Closed Date Diagnosis/Indication Diagnosis SNOMED-CT Code Diagnosis ICD10 Code Diagnosis IMO Codes Diagnosis Note [id number] Russell Buckley APRN [address] [address] 06/17/2022 09:13:28 06/17/2022 10:27:27 Suspected COVID-19 331949431 Z20.822 covid test neg, if symptoms return to retest [id number] [place] [id number] 08/05/2022 09:39:03 08/05/2022 10:30:34 Acute maxillary sinusitis 30971140 J01.00 [id number] [facility] [place] [address] 03/17/2023 15:15:54 03/17/2023 16:24:10 Body mass index 25-29 - overweight 178862413 Z68.27 Overweight 061975088 E66 .3 Acute maxi llary sinusitis 43216022 J01.00 [id number] [facility] [place] [id number] 09/16/2023 16:23:12 09/16/2023 17:12:53 Acute maxillary sinusitis 80270616 J01.00 [id number] [facility] [place] [id number] 02/10/2024 15:34:41 02/10/2024 16:04:09 Acute maxillary sinusitis 38738524 J01.00 Acute righ t otitis media 721148926 H66.91 [id number] [facility] [address] [address] 10/04/2024 09:24:13 10/04/2024 10:38:24 Acute maxillary sinusitis 42386803 J01.00 if symptoms worsen return [id number] [facility] [place] [address] 03/18/2025 15:34:48 03/18/2025 16:11:43 Viral upper respiratory tract infection 144513966 J06.9 4748712 no sign of a bacterial infection. likely viral. viruses can take 7-14 days to run their course. nasal saline and bulb syringe to remove nasal drainage to help with congestion . monitor temp. Tylenol or Motrin as needed for pain or fever. encourage fluids, water, Gatorade, power aide, Pedialyte if /tod dler/child warm salt water gargles warm fluids sore throat lozenges sleep elevated humidifier /vaporizer follow up immediatel y for new or worsening symptoms or no noticeable improvemen t over the next 48-72 hours [id number] Russell Buckley APRN [address] [address] 10/06/2025 12:54:49 10/06/2025 14:34:25 Viral upper respiratory tract infection 879626373 J06.9 4091315 monitor temp. Tylenol or Motrin as needed for pain or fever.enco urage fluids, water, Gatorade, power aide, Pedialyte if /tod dler/child warm salt water gargleswar m fluidssore throat lozengessl eep elevatedhu midifier/v aporizerfo llow up immediatel y for new or worsening symptoms or no noticeable improvemen t over the next 48-72 hours Acute cough 4500284958 05839399 R05.2 [id number] Health Concerns Section Related Observation LastModified by Organization Detai ls LastModified Time None Recorded Concern Status LastModified by Organization Details LastModified Time None Recorded Advance Directives Directive N: Payers Insurance Date Sequence Insurance Name Policy Number Policy Stokes Covered Member ID Stokes Member ID Guarantor Name 10/05/2025 [employer] [place] [place] [facility] (MEDICARE) Momo Moreno [place] [id number] [place]o [place] 05/06/2025 SLIDING FEE SCHEDULE - DISCOUNT Momo [place] 10/05/2025 2 [place] [id number] Momo [place] [id number] Momo [place] 10/06/2025 1 [place] Momo Josh [place] [id number] [place]o [place] Notes Date Note Type Note Provider Name [...] color and coughing up thick sputum Russell Buckley APRN [address], [place], [address], [place] - [facility] 09/16/2023 17:27:11 02/10/2024 text/html ROS as noted in the HPI 83 year old male who presents to the office today with concerns ofeyes watering from pressure behind eyes, forehead feels puffy, off balance yesterday, ears feel full, rt ear pain and sinus tenderness Russell Buckley APRN [address], [place], [address], [place] - [facility] 02/10/2024 16:00:52 10/04/2024 text/html ROS as noted in the HPI 84 year old male who presents to the office today with concerns ofcough, congestion, pressure in foreheadears feel puffy Russell Buckley APRN [address], [place], [address], [place] [facility] 10/04/2024 10:31:19 03/18/2025 text/html 84 yr old male presents for sinus pressure/congestio n/clear nasal drainage for a week. does not want swabbed. Russell Buckley APRN [address], [place], [address], [place] [facility] 03/18/2025 16:20:25 10/06/2025 text/html ROS as noted in the HPI 85 yr old presents for cough, congestion, fever since yesterday morning. Russell Buckley APRN [address], [place], [address], [place] [facility] 10/06/2025 14:29:35
== END 2025-10-17 23:59 | disposition home or self-care (01) ==
LOC: LAB.DROPOF 10-18 12:27
PROVIDERS: PCP Family Medicine; Visit Provider Urology
DX: A41.9 Sepsis, unspecified organism (principal); R65.20 Severe sepsis without septic shock
CPT/HCPCS: 87086